=== PATIENT | female | born 2000 | race Caucasian/White ===

== ENCOUNTER 2022-03-10 12:39 | Emergency (ER) | payer SELFPAY ==
--- OUTSIDE RECORDS SUMMARY | 2022-03-10 12:42 | XMS REPORT | Continuity of Care Document ---
:2000 Author Organization [facility] [place] [facility] t Address [address] [place] [address] Care Team Providers Name Role Phone PCP, DOES NOT HAVE A Primary Care Physician Unavailable Doctor Unassigned, Name Attending Clinician Unavailable Rock ESCOBEDO Attending Clinician Unavailable Rock Juarez Attending Clinician Sejal RODRÍGUEZ Attending Clinician Unavailable Sejal oRdríguez DO Attending Clinician PROVIDER, LARS Attending Clinician Unavailable Rock ESCOBEDO Admitting Clinician Unavailable Payers Payer Name Policy Type Policy Number Effective Date Expiration Date S ource Problems Condition Condition Condition Status Onset Resolution Last Treating Co mments Source Name Details Category Date Date Treatment Clinician Date Problem No known ASSERTION [facility] problems [facility] Joseph ([place]) Allergies, Adverse Reactions, Alerts Allergy Allergy Status Severity Reaction(s) Onset Inactive Treating Comm ents Source Name Type Date Date Clinician PENICILL Drug Active Unknown-Cmnt 2020-09 Un rafael INS Class 2-16 ity of 00:00: [place] 00 [facility] Penicill Propensi Active Unknown - 2020-09 Childhood Univers ins ty to See comments 16 allergy-t i ty of adverse 00:00: old not [place] reaction 00 to take Medical s by Branch parents NO KNOWN Drug Active Univers ALLERGIE Class ity of S [facility] Social History Social Habit Start Date Stop Date Quantity Comments Source Exposure to Not sure [facility] SARS-CoV-2 (event) Medica l Branch Sex Assigned At [birth year] [facility] 00:00:00 00:00:00 [facility] Smoking Status Start Date Stop Date Source Unknown if ever smoked [facility] Medications Ordered Filled Start Stop Current Ordering Indication Dosage Frequency Signature Comments Components Source Medication Medication Date Date Medication? Clinician (SIG) Name Name activated No 25g 25 g, Univer s charcoal-so 10-04 Oral, ity of rbitoL 19:00: 18:43 ONCE, 1 Marilyn (ACTIDOSE/S 00 :00 dose, On Medi noe ORBITAL) 25 Tue Branch gram/120 mL 10/04/21 at suspension 1300, RADHA 25 g predniSONE 2020-09 No [id number] 50mg Take 5 Univers 10 mg 11-10 tablets by ity of tablet 00:00: 05:59 mouth [place] 00 :00 daily for Medical 4 days. Branch albuterol 2020-09 No 5mg 5 mg, Univer s (PROVENTIL) 11-09 Inhalation i ty of 2.5 mg /3 16:30: 15[place]33 [place] (0.083 00 :00 dose, On Medica l %) [facility] nebulizer 09/08/21 solution 5 at 1030, mg RADHA predniSONE 2020-09 No 50mg 50 mg, Univ ers (DELTASONE) 11-09 Oral, ity of tablet 50 16:30: 15:41 ONCE, 1 [place] mg 00 :00 dose, On Medical [place] 09/08/21 at 1030, RADHA ipratropium 2020-09 No .5mg 0.5 mg, Un rafael (ATROVENT) 11-09 Inhalation it y of 0.02 % 15:45: 14:47 , ONCE, 1 [place] nebulizer 00 :00 dose, On Medica l solution Am[place] Branch 0.5 mg 09/08/21 at 0945, RADHA albuterol 2020-09- No 5mg 5 mg, Univer s (PROVENTIL) 11-09 Inhalation i ty of 2.5 mg /3 15:45: 14:47 [place] (0.083 00 :00 dose, On Medica l %) [facility] nebulizer 09/08/21 solution 5 at 0945, mg RADHA ondansetron 2020-09- No 4mg 4 mg, Univ ers (ZOFRAN-ODT 2-16 12-16 Oral, ity of ) 15:30: 14:17 ONCE, 1 [place] disintegrat 00 :00 dose, On Medi noe ing tablet Amleia Branch 4 mg 09/08/21 at 0930, Routine ondansetron 2020-09 Yes [id number] 4mg Take 1 Univers (ZOFRAN 2-16 tablet by ity of ODT) 4 mg 00:00: mouth [place] disintegrat 00 every 8 Medic al ing tablet (eight) Branch hours as needed for Nausea and Vomiting (N/V). ondansetron 2020-09 Yes [id number] 4mg Take 1 Univers (ZOFRAN 2-16 tablet by ity of ODT) 4 mg 00:00: mouth [place] disintegrat 00 every 8 Medic al ing tablet (eight) Branch hours as needed for Nausea and Vomiting (N/V). ondansetron 2020-09 Yes [id number] 4mg Take 1 Univers (ZOFRAN 2-16 tablet by ity of ODT) 4 mg 00:00: mouth [place] disintegrat 00 every 8 Medic al ing tablet (eight) Branch hours as needed for Nausea and Vomiting (N/V). Vital Signs Vital Name Observation Time Observation Value Comments Source Systolic blood 2021-10-04 16:49:00 133 mm[Hg] Univer sity of [facility] Diastolic blood 2021-10-04 16:49:00 96 mm[Hg] Unive rsity [facility] Heart rate 2021-10-04 16:49:00 112 /min [facility] Respiratory rate 2021-10-04 16:49:00 22 /min [facility] Body height 2021-10-04 16:49:00 165.1 cm [facility] Body weight 2021-10-04 16:49:00 79.379 kg [facility] BMI 2021-10-04 16:49:00 29.12 kg/m2 [facility] Oxygen saturation in 2021-10-04 16:49:00 100 /min [facility] Arterial blood by [facility] Pulse oximetry Branch Systolic blood 2021-09-08 16:36:51 122 mm[Hg] Univer sity of pressure [facility] Diastolic blood 2021-09-08 16:36:51 60 mm[Hg] Unive rsity of pressure [facility] Heart rate 2021-09-08 16:36:51 94 /min [facility] Body temperature 2021-09-08 16:36:51 36.78 [facility] Respiratory rate 2021-09-08 16:36:51 18 /min [facility] Oxygen saturation in 2021-09-08 16:36:51 99 /min [facility] Arterial blood by [facility] Pulse oximetry Branch Body height 2021-09-08 13:52:00 172.7 cm [facility] Body weight 2021-09-08 13:52:00 88.451 kg [facility] BMI 2021-09-08 13:52:00 29.65 kg/m2 [facility] Height 2021-07-27 12:41:[address] [facility] [facility] Weight Measured 2021-07-27 12:41:17 [facility] Body Temperature 2021-07-27 12:41:[address] [facility] [facility] Heart Rate 2021-07-27 12:41:[address] [facility] ([place] [facility] Respiratory Rate 2021-07-27 12:41:[address] [facility] ([place] [facility] O2 % BldC Oximetry 2021-07-27 12:41:[address] [facility] [facility] BP Systolic 2021-07-27 12:41:[address] [facility] ([place] [facility] BP Diastolic 2021-07-27 12:41:[address] [facility] ([place] [facility] BMI (Body Mass 2021-07-27 12:41:[address] [facility] [place] [facility] Procedures Procedure Date / Time Performing Clinician Source Performed EXTERNAL PROVIDER 2021-10-19 06:01:00 Doctor Unassigned, No Univ [facility] RECORDS Name [facility] CT HEAD WO CONTRAST 2021-10-04 18:04:08 Nadine Escobedo [facility] XR CHEST 1 VW 2021-10-04 18:03:00 Nadine Escobedo [facility] URINE DRUG (IMMUNOASSAY) 2021-10-04 17:40:00 Nadine Escobedo [facility] COMPREHENSIVE DRUG Medical [facility] SCREEN CREATINE KINASE 2021-10-04 17:35:00 Nadine Escobedo [facility] LIPASE 2021-10-04 17:35:00 Nadine Escobedo [facility] TROPONIN I 2021-10-04 17:35:00 Nadine Escobedo [facility] COMP. METABOLIC PANEL 2021-10-04 17:35:00 Nadine Escobedo [facility] ([id number]) [facility] SALICYLATE 2021-10-04 17:35:00 Nadine Escobedo [facility] ETHANOL 2021-10-04 17:35:00 Nadine Escobedo [facility] CBC WITH DIFF 2021-10-04 17:35:00 Nadine Escobedo [facility] URINALYSIS 2021-10-04 17:35:00 Nadine Escobedo [facility] COVID-19 (ID NOW RAPID 2021-10-04 17:35:00 Nadine Escobedo [facility] TESTING) [facility] POCT TEST 2021-10-04 17:34:00 Nadine Escobedo [facility] NOTICE OF PRIVACY 2021-09-08 13:48:15 Doctor Unassmeg, No [facility] PRACTICES Name [facility] CONSENT/REFUSAL FOR 2021-09-08 13:48:03 [facility], [facility] Name [facility] Encounters Start End Encounter Admission Attending Care Care Encounter Source Date/Time Date/Time Type Type Clinicians Facility Department ID 2021-10-19 2021-10-19 Orders Doctor OLIVAREZ [id number] Univers 00:00:00 00:00:00 Only Unassigned, HAKEEM [id number] ity of [place] [facility] [id number] Abimael as [id number] [place] [id number] Branch 2021-10-04 2021-10-04 Emergency X JIMENEZ ESCOBEDO ERT [id number] Univers 10:52:00 13:41:00 NADINE [place] [facility] 2021-10-04 2021-10-04 [facility] [id number] Univers 10:52:00 13:41:00 Nadine MONTANO [id number] i ty [facility] [id number] [facility] [id number] [address] 2021-09-08 2021-09-08 Emergency [facility] [id number] Univers 07:53:00 10:38:00 KATHI [place] [facility] 2021-09-08 2021-09-08 Emergency [facility] [id number] Univers 07:53:00 10:38:00 Kathi MONTANO [id number] ity [facility] [id number] [facility] [id number] [address] 2019-10-14 2019-10-14 Departed 2.16.840. [place] J[id number] [facility] 13:42:00 16:23:00 Emergency [id number]. [facility] 11 [facility] - 3.4991.3. [facility] [address]. 1.2 [place] ([place]) Results Test Description Test Time Test Comments Results Result Comments Source TROPONIN I 2021-10-04 18:58:19 Test Item Value Reference Range Interpretation Comme nts TROPONIN I (test code = 0.004 ng/mL See_Comment [Au tomated message] The [id number]) system which ge nerated this result tra nsmitted reference range : <=0.034. The reference r barbara was not used to int erpret this result as normal/abnormal . HEMANT (test code = HEMANT) Reference (Normal) Range (defined by the 99th percentile reference limit): <= 0.034 ng/mL Note: Cardiac troponin begins to rise 3-4 hours after the onset of ischemia. Repeat in 4-6 hours if the sample was drawn within 3-4 hours of the onset of the symptom and found normal. Diagnosis of myocardial injury is made with acute changes in cTn concentrations with at least one serial sample above the 99th percentile upper reference limit (URL), taken together with the patient's clinical presentation. Biotin has been reported to cause a negative bias, interpret results relative to patient's use of biotin. Lab Interpretation Normal (test code = 46696-4) [facility]52[facility]56 Test Item Value Reference Range Interpretation Comments ALCOHOL (test code = <10 mg/dL 3425509245) HEMANT (test code = HEMANT) <10 Heveigjl13-794 Toxic>100 Depression of SIMULATION ANALYST>400 Fatalities Reported [facility]11 18:51:50 Test Item Value Reference Range Interpretation Comments SALICYLATE (test code <10 mg/L = 4912869538) HEMANT (test code = HEMANT) Therapeutic Range: ? Analgesic and Antipyretic Use ? 20-100 mg/L ? ? Anti-Inflammatory Use ? 100-250 mg/L Toxic Range: ? Greater than 300 mg/L [facility]2022-[facility]-11 18:51:35 Test Item Value Reference Range Interpretation Comments ACETAMINOP (test code = <10.0 10.0-30.0 L 2349249953) HEMANT (test code = HEMANT) Toxic: Greater than 200 ug/mL @ 4 hour post ingestion or greater than 50 ug/mL @ 12 hour post ingestion Lab Interpretation (test Abnormal code = 07556-9) [facility] METABOLIC PANEL (54834)2021-10-04 18:43:08 Test Item Value Reference Range Interpretation Comments NA (test code = 138 mmol/L 135-145 4383596552) K (test code = 4.5 mmol/L 3.5-5.0 2495635527) CL (test code = 106 mmol/L 98-108 4678111771) CO2 TOTAL (test code 25 mmol/L 23-31 = 4845625851) AGAP (test code = 2-16 8929464538) BUN (test code = 14 mg/dL 7-23 4086866725) GLUCOSE (test code = 110 mg/dL 70-110 6223683120) CREATININE (test code 0.81 mg/dL 0.50-1.04 = 6781333924) TOTAL BILI (test code 0.7 mg/dL 0.1-1.1 = 9562218406) CALCIUM (test code = 9.4 mg/dL 8.6-10.6 0969001061) T PROTEIN (test code 8.0 g/dL 6.3-8.2 = 1075055457) ALBUMIN (test code = 4.9 g/dL 3.5-5.0 9390360105) ALK PHOS (test code = 55 U/L 34-122 7068561696) ALTv (test code = 19 U/L 5-35 1742-6) AST(SGOT) (test code 32 U/L 13-40 = 6846545948) eGFR (test code = mL/min/1.73m2 5660785079) HEMANT (test code = HEMANT) Association of Glomerular Filtration Rate (GFR) and Staging of Kidney Disease* + + +- +| GFR (mL/min/1.73 m2) ?| With Kidney Damage ?| ?Without Kidney Damage+ ------+ ----+ ------+| ?>90 ?| ?Stage one ?| ? Normal ?+ -+ + -+| ?60-89 ?| ?Stage two ?| ? Decreased GFR ? + + +- +| ?30-59 ?| ?Stage three ?| ? Stage three ? + + +- +| ?15-29 ?| ?Stage four ? | ? Stage four ?+ -+ + -+| ?<15 (or dialysis) ? ?| ?Stage five ? | ? Stage five ?+ -+ + -+ *Each stage assumes the associated GFR level has been in effect for at least three months. ?Stages 1 to 5, with or without kidney disease, indicate chronic kidney disease. Notes: Determination of stages one and two (with eGFR >59mL/min/1.73 m2) requires estimation of kidney damage for at least three months as defined by structural or functional abnormalities of the kidney, manifested by either:Pathological abnormalities or Markers of kidney damage (including abnormalities in the composition of the blood or urine or abnormalities in imaging tests). [facility] 18:42:48 Test Item Value Reference Range Interpretation Comments LIPASE (test code = 4010477884) 79 U/L 0-220 Lab Interpretation (test code = Normal 19946-7) [facility] [id number] 18:42:28 Test Item Value Reference Range Interpretation Comments CK (test code = 4392968276) 60 U/L 33-194 Lab Interpretation (test code = Normal 69752-4) [facility] WITH [id number] 18:29:45 Test Item Value Reference Range Interpretation Comments WBC (test code = See_Comment [Automated 8090-2) message] The sy stem which generated this result transmitted reference range : 4.30 - 11.10 10*3/?L. The reference range was not used to interpret this result as normal/abnormal . RBC (test code = See_Comment [Automated 589-8) message] The sy stem which generated this result transmitted reference range : 3.93 - 5.25 10*6/?L. The reference range was not used to interpret this result as normal/abnormal . HGB (test code = 14.2 g/dL 11.6-15.0 718-7) HCT (test code = 42.4 % 35.7-45.2 4544-3) MCV (test code = 85.7 fL 80.6-95.5 787-2) MCH (test code = 28.7 pg 25.9-32.8 785-6) MCHC (test code = 33.5 g/dL 31.6-35.1 786-4) RDW-SD (test code = 39.6 fL 39.0-49.9 74950-2) RDW-CV (test code = 12.8 % 12.0-15.5 788-0) PLT (test code = See_Comment [Automated 777-3) message] The sy stem which generated this result transmitted reference range : 166 - 358 10*3/ ?L. The reference r barbara was not used to interpret this result as normal/abnormal . MPV (test code = 13.7 fL 9.5-12.9 H 82666-6) IPF % (test code = 13.2 % 1.3-7.7 H Platelet count 6643560794) measured by fluorescence method. NRBC/100 WBC (test See_Comment [Automat ed code = 1657957299) message] The system which generated this result transmitted reference range : 0.0 - 10.0 /100 WBCs. The refer ence range was not u sed to interpret th is result as normal/abnormal . NRBC x10^3 (test code <0.01 See_Comment [Auto mated = 9931392597) message] The s ystem which generated this result transmitted reference range : 10*3/?L. The reference range was not used to interpret this result as normal/abnormal . GRAN MAT (NEUT) % 79.5 % (test code = 770-8) IMM GRAN % (test code 0.40 % = 4584885119) LYMPH % (test code = 14.6 % 736-9) MONO % (test code = 4.8 % 5905-5) EOS % (test code = 0.4 % 713-8) BASO % (test code = 0.3 % 706-2) GRAN MAT x10^3(ANC) 7.17 10*3/uL 1.88-7.09 H (test code = 4919123772) IMM GRAN x10^3 (test 0.04 10*3/uL 0.00-0.06 code = 4973967736) LYMPH x10^3 (test code 1.32 10*3/uL 1.32-3.29 = 731-0) MONO x10^3 (test code 0.43 10*3/uL 0.33-0.92 = 742-7) EOS x10^3 (test code = 0.04 10*3/uL 0.03-0.39 711-2) BASO x10^3 (test code 0.03 10*3/uL 0.01-0.07 = 704-7) Lab Interpretation Abnormal (test code = 89573-2) [facility] [id number] 17:34:00 Test Item Value Reference Range Interpretation Comments POCT PREG (test code = 1605) Negative On board controls acceptable with Present C Line (test code = 3574) POCT PREG LOT # (test code = HCG [id number]) POCT PREG TEST DATE (test 11/21/2022 code = 3576) Lab Interpretation (test code = Normal 33895-3) [facility] [id number] 12:04:00 Test Item Value Reference Range Interpretation Comments Urinalysis (test Negative Negative Method of s ensitivity- code = BHCGUT) INDETERMINANT : results should be repea sandeep after 48-72 hrs POS ITIVE: results may be detected as early as 1 day after the first missed period A dilute urine specimen may no t contain representativel evels of hCG.If pregnanc y is still suspected, a fi rst morning urinespecimen O R a random blood specimen should be obtainedfrom e patient 48-72 hours lat er and re-tested. Urinalysis (test 1.025 1.002-1.036 N code = PREGUSG) [id number] 12:03:00 Test Item Value Reference Range Interpretation Comments Urinalysis (test code = UACLR) Light-Yellow Yellow Urinalysis (test code = UACLY) Clear Clear Urinalysis (test code = SPGR) 1.025 1.002-1.036 N Urinalysis (test code = ALETA) 6.5 5.0-9.0 N Urinalysis (test code = UALEU) 25 James/uL Negative Urinalysis (test code = UANIT) Negative Negative Urinalysis (test code = Negative mg/dL Neg-Trace PROUADIP) Urinalysis (test code = GLUCU) Normal mg/dL Negative Urinalysis (test code = KETU) Negative mg/dL Negative Urinalysis (test code = Normal mg/dL Less than 2 UAUROB) Urinalysis (test code = UABIL) Negative Negative Urinalysis (test code = UABLD) Negative Negative Urinalysis (test code = UARBC) 0-3 HPF 0-3 Urinalysis (test code = UAWBC) 0-3 HPF 0-3 Urinalysis (test code = 0-3 HPF 0-3 UASQUAM) Urinalysis (test code = UABAC) None Seen HPF None Seen Urine Source: Urine Clean Catch"
[2022-03-10 13:28] LABS: Urine Blood Negative (Negative); Urine Glucose Negative (Negative); Urine Protein Negative (Negative); Urine Specific Gravity 1.025 (1.005-1.030)
[2022-03-10 14:15] LABS: Absolute Lymphocytes (CBC) 2.8 K/uL (0.7-4.9); Albumin 4.2 g/dL (3.4-5.0); Bilirubin Total 0.2 mg/dL (0.2-1.0); Lymphocytes % 27.1 % (15.3-44.8); MPV 10.4 fL (7.6-11.3); Potassium 4.1 mmol/L (3.5-5.1); Protein, Total 8.2 g/dL (6.4-8.2); RBC Red Blood Cell Count 4.94 M/uL (3.86-4.86)
[2022-03-10] MEDS ORDERED: ONDANSETRON 4 MG/2 ML VIAL ONE (14:17)
[2022-03-10] MEDS ORDERED: NA CHLORIDE 0.9% 1,000 ML ONE (14:17)
[2022-03-10 14:31] LABS: Urine Specific Gravity/Preg 1.025 (1.005-1.030)
[2022-03-10] MEDS ORDERED: MORPHINE 4 MG/ML SYR ONE (14:33)
--- NOTE | 2022-03-10 15:06 | RAD REPORT ---
EXAM DESCRIPTION: CTAbdomen Pelvis W Contrast - 03/10/2022 2:38 pm CLINICAL HISTORY: Right lower abdominal pain COMPARISON: No comparisons TECHNIQUE: CT of the abdomen and pelvis was performed with contrast. All CT scans are performed using dose optimization technique as appropriate and may include automated exposure control or mA/KV adjustment according to patient size. FINDINGS: Lower chest: No acute abnormality. Mild circumferential thickened distal esophagus. This c ould reflect esophagitis. Liver: No acute abnormality or suspicious lesions. Biliary: No biliary ductal dilatation. Stomach: No significant focal abnormality. Duodenum: No significant focal abnormality. Pancreas: No significant abnormality. Spleen: No significant abnormality. Adrenal: No suspicious lesions. Kidney/ureter: No hydronephrosis. No renal calculi. Retroperitoneum: No retroperitoneal adenopathy. Vascular: No aneurysm. Bowel: Nonspecific fluid within the distal small bowel. No bowel obstruction. Normal appendix. Peritoneum: No ascites or free air. Bladder: Grossly unremarkable. Reproductive: No adnexal masses. Bones: No acute fracture. Other: n/a IMPRESSION: No acute intra-abdominal or pelvic finding. Normal appendix.
--- NOTE | 2022-03-10 17:05 | RAD REPORT ---
EXAM DESCRIPTION: US - Pelvis Complete - 03/10/2022 4:52 pm CLINICAL HISTORY: pelvic pain Pelvic pain. COMPARISON: Abdomen Pelvis W Contrast dated 03/10/2022 FINDINGS: The uterus is normal in size, shape and echotexture. 7.8 cm. The endometrial stripe measures 5 mm, normal The left ovary is unremarkable measuring 2.4 x 1.9 x 1.8 cm with volume of 4.2 cc. Vascular flow is p resent. The right ovary was not visualized. No free fluid. IMPRESSION: Right ovary not visualized, otherwise unremarkable pelvic ultrasound.
--- NOTE | 2022-03-10 18:12 | ER ---
Nurse's Notes [facility] Name: Kimber Layton Age: 21 yrs Sex: Female : 2000 Arrival Date: 03/10/2022 Time: 12:42 Bed 20 Private MD: Diagnosis: Groin Pain Presentation: 03/10 13:17 Chief complaint: Patient states: RLQ pain that began last night, pt states "It started aa5 in my belly button but then it traveled down to my right". Described pain as cramping and sharp. Pt reports nausea. Denies vomiting. Onset of symptoms was February 2022. 13:17 Acuity: REYNA 3 aa5 13:17 Method Of Arrival: Ambulatory aa5 13:17 Coronavirus screen: nausea. Ebola Screen: No symptoms or risks identified at this time. aa5 Initial Sepsis Screen: Does the patient meet any 2 criteria? No. Patient's initial sepsis screen is negative. Does the patient have a suspected source of infection? No. Patient's initial sepsis screen is negative. Risk Assessment: Do you want to hurt yourself or someone else? Patient reports no desire to harm self or others. Triage Assessment: 18:35 General: Appears in no apparent distress. Behavior is calm. iw Historical: - Allergies: 13:18 Amoxicillin; aa5 13:18 Motrin; aa5 13:18 PENICILLINS; aa5 - PMHx: 13:18 Asthma; GERD; aa5 - PSHx: 13:18 left knee; aa5 - Immunization history:: Adult Immunizations up to date. - Social history:: Smoking status: Patient denies any tobacco usage or history of. Screenin:35 Abuse screen: Denies threats or abuse. Denies injuries from another. Nutritional iw screening: No deficits noted. Tuberculosis screening: No symptoms or risk factors identified. Fall Risk IV access (20 points). Assessment: 18:34 Reassessment: Patient appears in no apparent distress at this time. Patient and/or iw family updated on plan of care and expected duration. Pain level reassessed. Patient is alert, oriented x 3, equal unlabored respirations, skin warm/dry/pink. Vital Signs: 13:17 BP 127 / 78; Pulse 82; Resp 16 S; Temp 97.6(TE); Pulse Ox 100% on R/A; Weight 86.18 kg aa5 (R); Height 5 ft. 8 in. (172.72 cm) (R); 13:17 Body Mass Index 28.89 (86.18 kg, 172.72 cm) [facility] ED Course: 12:42 Patient arrived in ED. as 12:59 Sandip Snider PA is PHCP. [facility] 12:59 Bari Gusman MD is Attending Physician. [facility] 13:17 Arm band placed on. aa 13:18 Triage completed. aa 13:27 Inserted saline lock: 20 gauge in left antecubital area, using aseptic technique. Blood mb7 collected. 14:04 Justina Merritt, RN is Primary Nurse. cm 14:42 CT Abd/Pelvis - IV Contrast Only In Process Unspecified. EDMS 16:54 US Pelvis Complete In Process Unspecified. EDMS 18:35 No provider procedures requiring assistance completed. IV discontinued, intact, iw bleeding controlled, No redness/swelling at site. Pressure dressing applied. Administered Medications: 14:16 Drug: NS 0.9% 1000 ml Route: IV; Rate: 1 bolus; Site: left antecubital; cm 14:17 Drug: Zofran (Ondansetron) 4 mg Route: IVP; Site: left antecubital; cm 14:17 Follow up: Response: No adverse reaction cm 14:27 Drug: morphine 4 mg Route: IVP; Infused Over: 4 mins; Site: left antecubital; cm 18:24 Not Given (Patient Refused): Promethazine 12.5 mg IVP once iw Medication: 18:35 VIS not applicable for this client. iw Outcome: 18:11 Discharge ordered by . [facility] 18:35 Discharged to home ambulatory, with family. iw 18:35 Condition: good 18:35 Discharge instructions given to patient, Instructed on discharge instructions, follow up and referral plans. medication usage, Demonstrated understanding of instructions, follow-up care, medications, Prescriptions given X 3. 18:35 Patient left the ED. iw Signatures: Dispatcher [employer] EDMS Sandip Snider PA PA jmm Martinez, Amelia as Williams, Irene, RN RN Rosalia Mora RN RN [facility] Lucia Villalobos mb7 Justina Merritt, AURY RN cm
--- NOTE | 2022-03-10 18:12 | EDPHYS ---
Physician Documentation [facility] Name: Kimber Layton Age: 21 yrs Sex: Female : 2000 Arrival Date: 03/10/2022 Time: 12:42 Bed 20 Private MD: ED Physician Bari Gusman HPI: 03/10 13:29 This 21 yrs old Female presents to ER via Ambulatory with complaints of Abdominal Pain. jmm 13:29 The patient presents with abdominal pain. Onset: The symptoms/episode began/occurred jmm gradually, 1 day(s) ago. The symptoms radiate to right leg. This is a 21 year old female with a history of asthma, gerd that presents to the ED with complaints of right groin pain which radiates down her right leg. Denies back pain, vomiting, diarrhea, fever. Pain initially began periumbilical. . Historical: - Allergies: 13:18 Amoxicillin; aa5 13:18 Motrin; aa5 13:18 PENICILLINS; aa5 - PMHx: 13:18 Asthma; GERD; aa5 - PSHx: 13:18 left knee; aa5 - Immunization history:: Adult Immunizations up to date. - Social history:: Smoking status: Patient denies any tobacco usage or history of. ROS: 13:29 Constitutional: Negative for fever, chills, and weight loss, Cardiovascular: Negative jmm for chest pain, palpitations, and edema, Respiratory: Negative for shortness of breath, cough, wheezing, and pleuritic chest pain. 13:29 Abdomen/GI: Positive for abdominal pain. 13:29 MS/extremity: Positive for pain. 13:29 All other systems are negative. Exam: 13:29 Constitutional: This is a well developed, well nourished patient who is awake, alert, jmm and in no acute distress. Head/Face: atraumatic. Eyes: EOMI, no conjunctival erythema appreciated ENT: Moist Mucus Membranes Neck: Trachea midline, Supple Chest/axilla: Normal chest wall appearance and motion. Cardiovascular: Regular rate and rhythm. No edema appreciated Respiratory: Normal respirations, no respiratory distress appreciated 13:29 Skin: General appearance color normal MS/ Extremity: Moves all extremities, no obvious deformities appreciated, no edema noted to the lower extremities Neuro: Awake and alert Psych: Behavior is normal, Mood is normal, Patient is cooperative and pleasant 13:29 Abdomen/GI: Inspection: abdomen appears normal, Palpation: moderate abdominal tenderness, in the suprapubic area and right lower quadrant. 13:29 Musculoskeletal/extremity: right groin pain on rom of the right hip. Vital Signs: 13:17 BP 127 / 78; Pulse 82; Resp 16 S; Temp 97.6(TE); Pulse Ox 100% on R/A; Weight 86.18 kg aa5 (R); Height 5 ft. 8 in. (172.72 cm) (R); 13:17 Body Mass Index 28.89 (86.18 kg, 172.72 cm) aa5 MDM: 13:42 Patient medically screened. [facility] 18:11 Data reviewed: vital signs, nurses notes. Counseling: I had a detailed discussion with keshia the patient and/or guardian regarding: the historical points, exam findings, and any diagnostic results supporting the discharge/admit diagnosis, lab results, radiology results, the need for outpatient follow up, to return to the emergency department if symptoms worsen or persist or if there are any questions or concerns that arise at home. 03/10 13:28 Order name: Urine Dipstick-Ancillary; Complete Time: 13:39 [facility] 03/10 13:29 Order name: Urine --Ancillary (enter results); Complete Time: 14:31 03/10 13:40 Order name: CBC with Diff; Complete Time: 14:31 [facility] 03/10 13:40 Order name: CMP; Complete Time: 14:19 [facility] 03/10 13:40 Order name: Lipase; Complete Time: 14:19 [facility] 03/10 13:40 Order name: CT Abd/Pelvis - IV Contrast Only; Complete Time: 16:08 [facility] 03/10 13:40 Order name: IV Saline Lock; Complete Time: 14:17 [facility] 03/10 13:40 Order name: Labs collected and sent; Complete Time: 14:17 [facility] 03/10 16:21 Order name: US Pelvis Complete; Complete Time: 17:14 [facility] Administered Medications: 14:16 Drug: NS 0.9% 1000 ml Route: IV; Rate: 1 bolus; Site: left antecubital; cm 14:17 Drug: Zofran (Ondansetron) 4 mg Route: IVP; Site: left antecubital; cm 14:17 Follow up: Response: No adverse reaction cm 14:27 Drug: morphine 4 mg Route: IVP; Infused Over: 4 mins; Site: left antecubital; cm 18:24 Not Given (Patient Refused): Promethazine 12.5 mg IVP once iw Disposition: 03/11 08:10 Co-signature as Attending Physician, Bari Gusman MD I agree with the assessment ma2 and plan of care. Disposition Summary: 03/10/22 18:11 Discharge Ordered Location: Home [facility] Condition: Stable [facility] Diagnosis - Groin Pain [facility] Followup: [facility] - With: Private Physician - When: 2 - 3 days - Reason: Recheck today's complaints, Continuance of care, Re-evaluation by your physician Discharge Instructions: - Discharge Summary Sheet [facility] - Adductor Muscle Strain Rehab-SportsMed [facility] Forms: - Medication Reconciliation Form [facility] - Thank You Letter [facility] - Antibiotic Education [facility] - Prescription Opioid Use [facility] Prescriptions: - Diclofenac Sodium 75 mg Oral Tablet Sustained Release - take 1 tablet by ORAL route 2 times per day; 30 tablet; Refills: 0, Product [facility] Selection Permitted - orphenadrine citrate 100 mg Oral Tablet Sustained Release - take 1 tablet by ORAL route 2 times per day As needed; 20 tablet; Refills: 0, [facility] Product Selection Permitted - ondansetron 4 mg Oral tablet,disintegrating - take 1 tablet by ORAL route every 4-6 hours; 20 tablet; Refills: 0, Product [facility] Selection Permitted Signatures: Dispatcher [employer] EDSandip Martinez PA PA jmm Calderon, Audri, RN RN aa5 Bari Gusman MD MD ma2 Justina Merritt RN RN cm Radha Castaneda RN iw
[2022-03-10] MEDS ORDERED: PROMETHAZINE INJ 25 MG/ML AMP ONE (18:16)
[2022-03-10 18:41] VITALS: BP 127/78; TEMP 97.6; O2SAT 100
== END 2022-03-10 18:35 | disposition home or self-care (01) ==
LOC: ER 12:39
DX: R10.30 Lower abdominal pain, unspecified (principal); Z88.0 Allergy status to penicillin; Z88.1 Allergy status to other antibiotic agents; Z88.6 Allergy status to analgesic agent
CPT/HCPCS: 36415; 74177; 76856; 80053; 81003; 81025; 83690; 85025; 96374; 96375; 99284; J2405; J2550; J7030; Q9967

== ENCOUNTER 2023-05-29 16:04 | Emergency (ER) | payer SELFPAY ==
--- OUTSIDE RECORDS SUMMARY | 2023-05-29 16:07 | XMS REPORT | Continuity of Care Document ---
:2000 Author Organization [facility] t Address [address] [place] [address] [address] [place] [address] Care Team Providers Name Role Phone PCP, PATIENT DOES NOT HAVE A Primary Care Physician Unavaila ALFREDO Brink Attending Clinician Unavailable Alfredo Godinez Attending Clinician Doctor Unassigned, [place] Attending Clinician Unavailable NADINE ESCOBEDO Attending Clinician Unavailable Nadine Juarez Attending Clinician KATHI RODRÍGUEZ Attending Clinician Unavailable Kathi Rodríguez DO Attending Clinician PROVIDER, ED TEMP Attending Clinician Unavailable ALFREDO COHEN Admitting Clinician Unavailable NADINE ESCOBEDO Admitting Clinician Unavailable Payers Payer Name Policy Type Policy Number Effective Date Expiration Date S ource Problems Condition Condition Condition Status Onset Resolution Last Treating Co mments Source Name Details Category Date Date Treatment Clinician Date No known No known Disease Unive rs active active ity of problems problems [facility] Allergies, Adverse Reactions, Alerts Allergy Allergy Status Severity Reaction(s) Onset Inactive Treating Comm ents Source Name Type Date Date Clinician PENICILL Drug Active Unknown-Cmnt 2020-09 Un rafael INS Class 2-16 ity of 00:00: [place] 00 [facility] Branch Penicill Propensi Active Unknown - 2020-09 Childhood Univers ins ty to See comments 2-16 allergy-t i ty of adverse 00:00: old not [place] reaction 00 to take Medical s by [place] parents Penicill Propensi Active Unknown - 2020-09 Childhood Univers ins ty to See comments 2-16 allergy-t i ty of adverse 00:00: old not [place] reaction 00 to take Medical s by [place] parents NO KNOWN Drug Active Univers ALLERGIE Class ity of S [facility] Social History Social Habit Start Date Stop Date Quantity Comments Source Exposure to 2022-09-08 2022-09-18 Not sure [facility] SARS-CoV-2 (event) 00:00:00 21:03:00 Medica l Branch Sex Assigned At [birth year] [facility] y [facility] 00:00:00 00:00:00 Medical Branch Smoking Status Start Date Stop Date Source Tobacco smoking consumption [facility] unknown Branch Medications Ordered Filled Start Stop Current Ordering Indication Dosage Frequency Signature Comments Components Source Medication Medication Date Date Medication? Clinician (SIG) Name Name doxycycline 2021-09 No 100mg 100 mg, U nivers hyclate 11-20 Oral, ity of (Vibramycin 05:45: 05[place]49 [place] capsule 00 :00 dose, On Medica l 100 mg [facility] 09/18/22 at 2345, RADHA
Re ason for Anti-Infec tive: Documented Infection< br>Documen sandeep Infection Site: HEENT
D uration of Therapy: 7 days benzonatate 2021-09 No 200mg 200 mg, U nivers (TESSALON 11-20 Oral, ity of PERLES) 05:30: 04:47 ONCE, 1 [place] capsule 200 00 :00 dose, On Medi noe mg [facility] 09/18/22 at 2330, RADHA predniSONE 2021-09 No 40mg 40 mg, Univ ers (DELTASONE) 11-20 Oral, ity of tablet 40 04:45: 04:46 [place]CE[place] mg 00 :00 dose, On Medical [facility] 09/18/22 at 2245, RADHA ondansetron 2021-09- No 4mg 4 mg, Slow Univers (ZOFRAN 11-20 IV Push, ity of (PF)) 04:00: 03:25 ONCE, 1 [place] injection 4 00 :00 dose, On Medi noe mg [facility] 09/18/22 at 2200, RADHA NaCl 0.9% 2021-09 No 1000mL at 999 Uni vers (NS) bolus 2-27 12-27 mL/hr, ity of infusion 04:00: 05:31 1,000 mL, Abimael as 1,000 mL 00 :00 IV Medical Infusion, Branch ONCE, 1 dose, On 09/18/22 at 2200, RADHA benzonatate 2021-09 Yes [id number] 200mg Take 1 Univers 200 mg 11-19 capsule by ity of capsule 00:00: mouth 3 [place] 00 (three) Medical times [place] daily as needed for Cough. doxycycline 2021-09- No [id number] 100mg Take 1 Univers hyclate 100 11-19 capsule by i ty of mg capsule 00:00: 05:59 [place] the Medical morning Branch and 1 capsule in the evening. Do all this for 7 days. predniSONE 2021-09 No [id number] 40mg Take 2 Univers 20 mg 11-19 tablets by ity of tablet 00:00: 05:59 mouth in [place] 00 :00 the Medical morning Branch for 5 days. activated No 25g 25 g, Univer s charcoal-so 10-04 Oral, ity of rbitoL 19:00: 18:43 ONCE, 1 [place] (ACTIDOSE/S 00 :00 dose, On Medi noe ORBITAL) 25 e Branch gram/120 mL 10/04/21 at suspension 1300, RADHA 25 g predniSONE 2020-09- No [id number] 50mg Take 5 Univers 10 mg 11-10 tablets by ity of tablet 00:00: 05:59 mouth [place] 00 :00 daily for Medical 4 days. Branch albuterol 2020-09 No 5mg 5 mg, Univer s (PROVENTIL) 11-09 Inhalation i ty of 2.5 mg /3 16:30: 15:33 , [place] mL (0.083 00 :00 dose, On Medica l %) [facility] nebulizer 09/08/21 solution 5 at 1030, mg RADHA predniSONE 2020-09 No 50mg 50 mg, Univ ers (DELTASONE) 11-09 Oral, ity of tablet 50 16:30: 15:41 ONCE, [place] mg 00 :00 dose, On Medical [facility] 09/08/21 at 1030, RADHA ipratropium 2020-09 No .5mg 0.5 mg, Un rafael (ATROVENT) 11-09 Inhalation it y of 0.02 % 15:45: 14:47 , ONCE, 1 [place] nebulizer 00 :00 dose, On Medica l solution [place] Branch 0.5 mg 09/08/21 at 0945, RADHA albuterol 2020-09 No 5mg 5 mg, Univer s (PROVENTIL) 11-09 Inhalation i ty of 2.5 mg /3 15:45: 14:47 , [place] 1 [place] mL (0.083 00 :00 dose, On Medica l %) [place] [facility] nebulizer 09/08/21 solution 5 at 0945, mg RADHA ondansetron 2020-09 No 4mg 4 mg, Univ ers (ZOFRAN-ODT 11-09 Oral, ity of ) 15:30: 14:17 ONCE, 1 [place] disintegrat 00 :00 dose, On Medi noe ing tablet [place] Branch 4 mg 09/08/21 at 0930, Routine ondansetron 2020-09 Yes [id number] 4mg Take 1 Univers (ZOFRAN 2-16 tablet by ity of ODT) 4 mg 00:00: mouth [place] disintegrat 00 every 8 Medic al ing tablet (eight) Branch hours as needed for Nausea and Vomiting (N/V). ondansetron 2020-09 Yes [id number] 4mg Take 1 Univers (ZOFRAN 2-16 tablet by ity of ODT) 4 mg 00:00: mouth [place] disintegrat 00 every 8 Medic al ing tablet (eight) Branch hours as needed for Nausea and Vomiting (N/V). ondansetron 2020-09 Yes [id number] 4mg Take 1 Univers (ZOFRAN 2-16 tablet by ity of ODT) 4 mg 00:00: mouth [place] disintegrat 00 every 8 Medic al ing tablet (eight) Branch hours as needed for Nausea and Vomiting (N/V). ondansetron 2020-09 Yes [id number] 4mg Take 1 Univers (ZOFRAN 2-16 tablet by ity of ODT) 4 mg 00:00: mouth [place] disintegrat 00 every 8 Medic al ing tablet (eight) Branch hours as needed for Nausea and Vomiting (N/V). Vital Signs Vital Name Observation Time Observation Value Comments Source Systolic blood 2022-09-19 04:00:00 115 mm[Hg] Univer sity of pressure [place] [facility] Diastolic blood 2022-09-19 04:00:00 60 mm[Hg] Unive rsity of [facility] Heart rate 2022-09-19 04:00:00 66 /min Universi ty of [facility] Respiratory rate 2022-09-19 04:00:00 18 /min Univ ersity of [facility] Oxygen saturation in 2022-09-19 04:00:00 97 /min University of Arterial blood by [place] [employer] no[facility] Pulse oximetry Branch Body temperature 2022-09-19 03:06:00 37.39 Tiara Univ ersity of [facility] Body height 2022-09-19 03:06:00 172.7 cm Universi ty of [facility] Body weight 2022-09-19 03:06:00 81.647 kg Universi ty of [facility] BMI 2022-09-19 03:06:00 27.37 kg/m2 Universi ty of [place] [facility] Body height 2021-10-04 16:49:00 165.1 cm Universi ty of [place] [facility] Body weight 2021-10-04 16:49:00 79.379 kg Universi ty of [place] [facility] BMI 2021-10-04 16:49:00 29.12 kg/m2 Universi ty of [facility] Branch Oxygen saturation in 2021-10-04 16:49:00 100 /min University of Arterial blood by [facility] noe Pulse oximetry Branch Systolic blood 2021-10-04 16:49:00 133 mm[Hg] Univer sity of pressure [facility] Branch Diastolic blood 2021-10-04 16:49:00 96 mm[Hg] Unive rsity of pressure [facility] Heart rate 2021-10-04 16:49:00 112 /min Universi ty of [facility] Respiratory rate 2021-10-04 16:49:00 22 /min Univ ersity of [facility] Branch Systolic blood 2021-09-08 16:36:51 122 mm[Hg] Univer sity of pressure [facility] Diastolic blood 2021-09-08 16:36:51 60 mm[Hg] Unive rsity of pressure [facility] Heart rate 2021-09-08 16:36:51 94 /min [facility] Body temperature 2021-09-08 16:36:51 36.78 Tiara [facility] Respiratory rate 2021-09-08 16:36:51 18 /min [facility] saturation in 2021-09-08 16:36:51 99 /min [facility] Arterial blood by [facility] Pulse oximetry Branch Body height 2021-09-08 13:52:00 172.7 cm [facility] Body weight 2021-09-08 13:52:00 88.451 kg [facility] BMI 2021-09-08 13:52:00 29.65 kg/m2 [facility] Height 2021-07-27 12:41:[address] [facility] [place] [facility] Weight Measured 2021-07-27 12:41:17 [facility] [place] [facility] Body Temperature 2021-07-27 12:41:[address] [facility] [place] [facility] Heart Rate 2021-07-27 12:41:[address] [facility] [place] [facility] Respiratory Rate 2021-07-27 12:41:[address] [facility] [place] [facility] O2 % BldC Oximetry 2021-07-27 12:41:[address] [facility] [place] [facility] BP Systolic 2021-07-27 12:41:[address] [facility] [place] [facility] BP Diastolic 2021-07-27 12:41:[address] [facility] [place] [facility] BMI (Body Mass 2021-07-27 12:41:[address] [facility] [place] ([place] [facility] Procedures Procedure Date / Time Performing Clinician Source Performed XR CHEST 1 VW 2022-09-19 03:47:07 Alfredo Cohen [facility] URINALYSIS 2022-09-19 03:33:00 Alfredo Cohen [facility] POCT TEST 2022-09-19 03:33:00 Alfredo Cohen [facility] TROPONIN I 2022-09-19 03:25:00 [facility] METABOLIC PANEL 2022-09-19 03:25:00 Alfredo Cohen [facility] ([id number]) Medical [place] CBC WITH DIFF 2022-09-19 03:25:00 Alfredo Cohen [facility] RAPID INFLUENZA A/B 2022-09-19 03:25:00 Alfredo Cohen [facility] N-TERMINAL PRO-BNP 2022-09-19 03:25:[address] [facility] (ID NOW RAPID 2022-09-19 03:25:00 [facility] Medical [place] EXTERNAL PROVIDER 2021-10-19 06:01:00 Doctor Unassigned, [facility] RECORDS Name Medical Branch CT HEAD WO CONTRAST 2021-10-04 18:04:08 Nadine Escobedo [facility] XR CHEST 1 VW 2021-10-04 18:03:00 Nadine Escobedo [facility] URINE DRUG (IMMUNOASSAY) 2021-10-04 17:40:[address] [facility] SCREEN CREATINE KINASE 2021-10-04 17:35:00 Nadine Escobedo [facility] LIPASE 2021-10-04 17:35:00 Nadine Escobedo [facility] TROPONIN I 2021-10-04 17:35:00 Nadine Escobedo [facility] COMP. METABOLIC PANEL 2021-10-04 17:35:00 Nadine Escobedo [facility] ([id number]) [facility] SALICYLATE 2021-10-04 17:35:00 Nadine Escobedo [facility] ETHANOL 2021-10-04 17:35:00 Nadine Escobedo [facility] CBC WITH DIFF 2021-10-04 17:35:00 Nadine Escobedo [facility] URINALYSIS 2021-10-04 17:35:00 Nadine Escobedo [facility] COVID-19 (ID NOW RAPID 2021-10-04 17:35:00 Nadine Escobedo [facility] TESTING) [facility] POCT TEST 2021-10-04 17:34:00 Nadine Escobedo Universi ty of [facility] NOTICE OF PRIVACY 2021-09-08 13:48:15 Doctor Unassigned, No [facility] PRACTICES Name [facility] Branch CONSENT/REFUSAL FOR 2021-09-08 13:48:03 Doctor Unassigned, No [facility] DIAGNOSIS AND TREATMENT Name [facility] Encounters Start End Encounter Admission Attending Care Care Encounter Source Date/Time Date/Time Type Type Clinicians Facility Department ID 2022-09-18 2022-09-18 Emergency X VICKI [facility] ERT [id number] Univers 21:01:00 23:53:00 ALFREDO grace [facility] 2022-09-18 2022-09-18 Emergency Vicki [facility] [id number] Univers 21:01:00 23:53:00 Alfredo MONTANO [id number] i ty of [place] 4.2.7.2.686 [facility] [id number] [address] 2021-10-19 2021-10-19 Orders Doctor OLIVAREZ [id number] Univers 00:00:00 00:00:00 Only Unassigned, HAKEEM 350.1.13.10 ity of [place] [facility] 4.2.7.2.686 Abimael [id number] [address] 2021-10-04 2021-10-04 Emergency X GREGG [facility] ERT [id number] Univers 10:52:00 13:41:00 NADINE grace [facility] 2021-10-04 2021-10-04 Emergency Gregg [facility] [id number] Univers 10:52:00 13:41:00 Nadine MONTANO 350.1.13.10 i ty of [place] 4.2.7.2.686 [facility] [id number] [address] 2021-09-08 2021-09-08 Emergency X ANNE [facility] ERT [id number] Univers 07:53:00 10:38:00 KATHI grace [facility] 2021-09-08 2021-09-08 Emergency Anne ARCHASITY [id number] Univers 07:53:00 10:38:00 Kathi MONTANO 350.1.13.10 itlamont [facility] 4.2.7.2.686 [facility] [id number] [address] 2019-10-14 2019-10-14 Departed 2.16.840. [place] [id number] [id number] [facility] 13:42:00 16:23:00 Emergency [id number]. [facility] 11 L es - 3.4991.3. [facility] [address] [address]. 1.2 [place] ([place]) Results Test Description Test Time Test Comments Results Result Comments Source TROPONIN I 2022-09-19 04:03:49 Test Item Value Reference Range Interpretation Comme nts TROPONIN I (test code = 0.003 ng/mL See_Comment [Au tomated message] The 7438838168) system which ge nerated this result tra [...] biotin. Lab Interpretation Normal (test code = 48814-4) [facility] [id number] 04:00:28 Test Item Value Reference Range Interpretation Comments NT-proBNP (test code 31 pg/mL See_Comment [Autom ated = 7394397916) message] The system which generated this result transmitted reference range : <=125. The reference range was not used to interpret this result as normal/abnormal . HEMANT (test code = HEMANT) Biotin has been reported to cause a negative bias, interpret results relative to patient's use of biotin. Lab Interpretation Normal (test code = 43996-1) [facility]. METABOLIC PANEL ([id number])2022-09-19 03:52:25 Test Item Value Reference Range Interpretation Comments NA (test code = 138 mmol/L 135-145 7420894144) K (test code = 4.0 mmol/L 3.5-5.0 6649160630) CL (test code = 105 mmol/L 98-108 2399349353) CO2 TOTAL (test code = 24 mmol/L 23-31 3727516822) AGAP (test code = 2-16 2120865239) BUN (test code = 18 mg/dL 7-23 7363200203) GLUCOSE (test code = 127 mg/dL 70-110 H 6665127344) CREATININE (test code = 0.81 mg/dL 0.50-1.04 8112146240) TOTAL BILI (test code = 0.3 mg/dL 0.1-1.4 3971334094) CALCIUM (test code = 8.8 mg/dL 8.6-10.6 9796598314) T PROTEIN (test code = 7.1 g/dL 6.3-8.2 8490236710) ALBUMIN (test code = 4.4 g/dL 3.5-5.0 7275209441) ALK PHOS (test code = 52 U/L 34-122 5260649204) ALTv (test code = 25 U/L 5-35 1742-6) AST(SGOT) (test code = 27 U/L 13-40 0384284371) eGFR (test code = mL/min/1.73m2 0941369307) HEMANT (test code = HEMANT) Association of Glomerular Filtration Rate (GFR) and Staging of Kidney Disease* + --+ --+ ------+| GFR (mL/min/1.73 m2) ?| With Kidney Damage ?| ?Without Kidney Damage+ --------+ --------+ +| ?>90 ?| ?Stage one ?| ? Normal ?+ ---+ ---+ -------+| ?60-89 ?| ?Stage two ?| ? Decreased GFR ? + --+ --+ ------+| ?30-59 ?| ?Stage three ?| ? Stage three ? + --+ --+ ------+| ?15-29 ?| ?Stage four ? | ? Stage four ?+ ---+ ---+ -------+| ?<15 (or dialysis) ? ?| ?Stage five ? | ? Stage five ?+ ---+ ---+ -------+ *Each stage assumes the associated GFR level [...] or urine or abnormalities in imaging tests). Lab Interpretation Abnormal (test code = 63557-2) [facility] WITH [id number] 03:38:46 Test Item Value Reference Range Interpretation Comments WBC (test code = See_Comment [Automated 7256-2) message] The sy stem which generated this result transmitted reference range : 4.30 - 11.10 10*3/?L. The reference range was not used to interpret this result as normal/abnormal . RBC (test code = See_Comment [Automated 892-8) message] The sy stem which generated this result transmitted reference range : 3.93 - 5.25 10*6/?L. The reference range was not used to interpret this result as normal/abnormal . HGB (test code = 12.8 g/dL 11.6-15.0 718-7) HCT (test code = 37.9 % 35.7-45.2 4544-3) MCV (test code = 85.4 fL 80.6-95.5 787-2) MCH (test code = 28.8 pg 25.9-32.8 785-6) MCHC (test code = 33.8 g/dL 31.6-35.1 786-4) RDW-SD (test code = 37.8 fL 39.0-49.9 L 44551-8) RDW-CV (test code = 12.3 % 12.0-15.5 788-0) PLT (test code = See_Comment L [Automated 777-3) message] The sy stem which generated this result transmitted reference range : 166 - 358 10*3/ ?L. The reference r barbara was not used to interpret this result as normal/abnormal . MPV (test code = 12.8 fL 9.5-12.9 30631-7) NRBC/100 WBC (test See_Comment [Automat ed code = 6068139273) message] The system which generated this result transmitted reference range : 0.0 - 10.0 /100 WBCs. The refer ence range was not u sed to interpret th is result as normal/abnormal . NRBC x10^3 (test code See_Comment [Auto mated = 3003466133) message] The s ystem which generated this result transmitted reference range : 10*3/?L. The reference range was not used to interpret this result as normal/abnormal . GRAN MAT (NEUT) % 69.0 % (test code = 770-8) IMM GRAN % (test code 0.30 % = 5343498073) LYMPH % (test code = 25.3 % 736-9) MONO % (test code = 4.6 % 5905-5) EOS % (test code = 0.6 % 713-8) BASO % (test code = 0.2 % 706-2) GRAN MAT x10^3(ANC) 7.47 10*3/uL 1.88-7.09 H (test code = 6614150150) IMM GRAN x10^3 (test 0.03 10*3/uL 0.00-0.06 code = 3444803043) LYMPH x10^3 (test code 2.74 10*3/uL 1.32-3.29 = 731-0) MONO x10^3 (test code 0.50 10*3/uL 0.33-0.92 = 742-7) EOS x10^3 (test code = 0.07 10*3/uL 0.03-0.39 711-2) BASO x10^3 (test code 0.01-0.07 = 704-7) Lab Interpretation Abnormal (test code = 93285-0) [facility] [id number] 03:33:00 Test Item Value Reference Range Interpretation Comments POCT PREG (test code = 1605) negative Lab Interpretation (test code = Normal 70437-7) [facility] [id number] 18:58:19 Test Item Value Reference Interpretation Comments Range TROPONIN I (test 0.004 ng/mL See_Comment [Automated code = 3711591334) message] The system which generated this result transmitted reference range : <=0.034. The reference range was not used to interpret this result as normal/abnormal . HEMANT (test code = Reference (Normal) HEMANT) Range (defined by the 99th percentile reference [...] biotin. Lab Interpretation Normal (test code = 38381-8) [facility]2022-[facility]-11 18:52:56 Test Item Value Reference Range Interpretation Comments ALCOHOL (test code = <10 mg/dL 3624047595) HEMANT (test code = HEMANT) <10 [id number] Toxic>100 Depression of LAYER UP>400 Fatalities Reported [facility]2022-01-11 18:51:50 Test Item Value Reference Range Interpretation Comments SALICYLATE (test code <10 mg/L = 0586931477) HEMANT (test code = HEMANT) Therapeutic Range: ? Analgesic and Antipyretic Use ? 20-100 mg/L ? ? Anti-Inflammatory Use ? 100-250 mg/L Toxic Range: ? Greater than 300 mg/L [facility]OPHEN2022-01-11 18:51:35 Test Item Value Reference Range Interpretation Comments ACETAMINOP (test code = <10.0 10.0-30.0 L 7020463905) HEMANT (test code = HEMANT) Toxic: Greater than 200 ug/mL @ 4 hour post ingestion or greater than 50 ug/mL @ 12 hour post ingestion Lab Interpretation (test Abnormal code = 75845-1) [facility]. METABOLIC PANEL (09560)2021-10-04 18:43:08 Test Item Value Reference Range Interpretation Comments NA (test code = 138 mmol/L 135-145 0601209827) K (test code = 4.5 mmol/L 3.5-5.0 1278443116) CL (test code = 106 mmol/L 98-108 8951976014) CO2 TOTAL (test code 25 mmol/L 23-31 = 3004793967) AGAP (test code = 2-16 3266162037) BUN (test code = 14 mg/dL 7-23 6936073677) GLUCOSE (test code = 110 mg/dL 70-110 9083540650) CREATININE (test code 0.81 mg/dL 0.50-1.04 = 7007398990) TOTAL BILI (test code 0.7 mg/dL 0.1-1.1 = 6813936657) CALCIUM (test code = 9.4 mg/dL 8.6-10.6 7785309035) T PROTEIN (test code 8.0 g/dL 6.3-8.2 = 1623896789) ALBUMIN (test code = 4.9 g/dL 3.5-5.0 4791942940) ALK PHOS (test code = 55 U/L 34-122 4560421483) ALTv (test code = 19 U/L 5-35 1742-6) AST(SGOT) (test code 32 U/L 13-40 = 1353575106) eGFR (test code = mL/min/1.73m2 8928463631) HEMANT (test code = HEMANT) Association of [...] or urine or abnormalities in imaging tests). [facility]2022-[facility] 18:42:48 Test Item Value Reference Range Interpretation Comments LIPASE (test code = 6343840497) 79 U/L 0-220 Lab Interpretation (test code = Normal 18712-9) [facility] [id number] 18:42:28 Test Item Value Reference Range Interpretation Comments CK (test code = 2980007345) 60 U/L 33-194 Lab Interpretation (test code = Normal 46031-1) [facility] WITH [id number] 18:29:45 Test Item Value Reference Range Interpretation Comments WBC (test code = See_Comment [Automated 9504-5) message] The sy stem which generated this result transmitted reference range : 4.30 - 11.10 10*3/?L. The reference range was not used to interpret this result as normal/abnormal . RBC (test code = See_Comment [Automated 314-6) message] The sy stem which generated this [...] RDW-SD (test code = 39.6 fL 39.0-49.9 15927-8) RDW-CV (test code = 12.8 % 12.0-15.5 788-0) PLT (test code = See_Comment [Automated 777-3) message] The sy stem which generated this result transmitted reference range : 166 - 358 10*3/ ?L. The reference r barbara was not used to interpret this result as normal/abnormal . MPV (test code = 13.7 fL 9.5-12.9 H 35184-1) IPF % (test code = 13.2 % 1.3-7.7 H Platelet count 0233769183) measured by fluorescence method. NRBC/100 WBC (test See_Comment [Automat ed code = 0414949181) message] The system which generated this result transmitted reference range : 0.0 - 10.0 /100 WBCs. The refer ence range was not u sed to interpret th is result as normal/abnormal . NRBC x10^3 (test code <0.01 See_Comment [Auto mated = 2147890538) message] The s ystem which generated this result transmitted reference range : 10*3/?L. The reference range was not used to interpret this result as normal/abnormal . GRAN MAT (NEUT) % 79.5 % (test code = 770-8) IMM GRAN % (test code 0.40 % = 8242459876) LYMPH % (test code = 14.6 % 736-9) MONO % (test code = 4.8 % 5905-5) EOS % (test code = 0.4 % 713-8) BASO % (test code = 0.3 % 706-2) GRAN MAT x10^3(ANC) 7.17 10*3/uL 1.88-7.09 H (test code = 3556929298) IMM GRAN x10^3 (test 0.04 10*3/uL 0.00-0.06 code = 8784588965) LYMPH x10^3 (test code 1.32 10*3/uL 1.32-3.29 = 731-0) MONO x10^3 (test code 0.43 10*3/uL 0.33-0.92 = 742-7) EOS x10^3 (test code = 0.04 10*3/uL 0.03-0.39 711-2) BASO x10^3 (test code 0.03 10*3/uL 0.01-0.07 = 704-7) Lab Interpretation Abnormal (test code = 78455-5) [facility] [id number] 17:34:00 Test Item Value Reference Range Interpretation Comments POCT PREG (test code = 1605) Negative On board controls acceptable with Present C Line (test code = 3574) POCT PREG LOT # (test code = HCG [id number]) POCT PREG TEST DATE (test 11/21/2022 code = 3576) Lab Interpretation (test code = Normal 83021-9) [facility]00 Test Item Value Reference Range Interpretation Comments Urinalysis (test Negative Negative Method of s ensitivity- code = BHCGUT) INDETERMINANT : results should be repea sandeep after 48-72 hrs POSIT CONNIE: results may be detected as early as 1 day after the first missed period A dilute urine specimen may no t contain representativel evels of hCG.If pregnanc y is still suspected, a fi rst morning urinespecimen O R a random blood specimen should be obtainedfrom e patient 48-72 hours lat er and re-tested. Urinalysis (test 1.025 1.002-1.036 N code = PREGUSG) [id number] 12:03:00 Test Item Value Reference Range Interpretation [...]
[2023-05-29 16:43] LABS: Absolute Lymphocytes (CBC) 2.3 K/uL (0.7-4.9); Hematocrit 41.6 % (36.0-45.0); Lymphocytes % 22.1 % (15.3-44.8); MCV 86.2 fL (80-100); MPV 10.6 fL (7.6-11.3); Platelets 161 thou/uL (152-406); RBC Red Blood Cell Count 4.83 M/uL (3.86-4.86)
[2023-05-29] MEDS ORDERED: KETOROLAC 30 MG/ML INJ ONE (17:06)
[2023-05-29] MEDS ORDERED: NA CHLORIDE 0.9% 1,000 ML ONE (17:07)
[2023-05-29 17:11] LABS: Magnesium 2.2 mg/dL (1.6-2.4); Potassium 3.7 mEq/L (3.5-5.1); Troponin High Sensitivity 4.1 pg/mL (<58.9)
--- NOTE | 2023-05-29 18:00 | RAD REPORT ---
EXAM DESCRIPTION: CT - Chest For Pe Angio - 05/29/2023 5:48 pm CLINICAL HISTORY: Chest pain COMPARISON: None. TECHNIQUE: Dynamically enhanced axial 3 mm thick images of the chest were obtained during administra tion of 100 mL Isovue 370 IV contrast. Coronal and oblique reconstruction images were generated and r eviewed. Exam utilizes a protocol for optimal evaluation of pulmonary arterial tree. Maximum intensity projections 3D imaging was utilized All CT scans are performed using dose optimization technique as appropriate and may include automated exposure control or mA/KV adjustment according to patient size. FINDINGS: A pulmonary embolus is not seen. A thoracic aortic aneurysm is not noted. A pleural effusion is not seen. A pericardial effusion is not seen. A lung consolidation is not present. IMPRESSION: Negative for a pulmonary embolism.
--- NOTE | 2023-05-29 18:00 | RAD REPORT ---
EXAM DESCRIPTION: Merle Single View05/29/2023 4:47 pm CLINICAL HISTORY: Chest pain COMPARISON: 2014 FINDINGS: The lungs appear clear of acute infiltrate. The heart is normal size IMPRESSION: No acute abnormalities displayed
--- NOTE | 2023-05-29 20:25 | ER ---
Nurse's Notes [facility] Name: Kimber Layton Age: 22 yrs Sex: Female : 2000 Arrival Date: 05/29/2023 Time: 16:04 Bed 18 Private MD: Diagnosis: Chest pain, unspecified;Headache Presentation: 05/29 16:10 Chief complaint: Patient states: Nausea and vomited x1 today. nj1 16:10 Coronavirus screen: Vaccine status: Patient reports being unvaccinated. Ebola Screen: nj1 Patient denies travel to an Ebola-affected area in the 21 days before illness onset. Initial Sepsis Screen: Does the patient meet any 2 criteria? No. Patient's initial sepsis screen is negative. Does the patient have a suspected source of infection? No. Patient's initial sepsis screen is negative. Risk Assessment: Do you want to hurt yourself or someone else? Patient reports no desire to harm self or others. Onset of symptoms was May 29, 2023. 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 - Social history:: Smoking status: Patient denies any tobacco usage or history of. Screenin:41 [facility] ED Fall Risk Assessment (Adult) Score/Fall Risk Level 0 - 2 = Low Risk nj1 Oriented to surroundings, Maintained a safe environment, Hourly rounding (assess needs \\T\\ fall precautionary measures) done. Abuse screen: Denies threats or abuse. Denies injuries from another. Nutritional screening: No deficits noted. Tuberculosis screening: No symptoms or risk factors identified. Assessment: 16:40 General: Appears in no apparent distress. comfortable, Behavior is calm, cooperative, nj1 appropriate for age. Pain: Denies pain. Neuro: Level of Consciousness is awake, alert, obeys commands, Oriented to person, place, time, situation. Cardiovascular: Patient's skin is warm and dry. Respiratory: Airway is patent Respiratory effort is even, unlabored. GI: Reports nausea. 18:00 Reassessment: Patient appears in no apparent distress at this time. Patient and/or nj1 family updated on plan of care and expected duration. Pain level reassessed. Patient is alert, oriented x 3, equal unlabored respirations, skin warm/dry/pink. Patient denies pain at this time. Patient states feeling better. Patient states symptoms have improved. 19:00 Reassessment: Patient appears in no apparent distress at this time. Patient and/or nj1 family updated on plan of care and expected duration. Pain level reassessed. Patient is alert, oriented x 3, equal unlabored respirations, skin warm/dry/pink. 20:00 Reassessment: Patient appears in no apparent distress at this time. Patient and/or nj1 family updated on plan of care and expected duration. Pain level reassessed. Patient is alert, oriented x 3, equal unlabored respirations, skin warm/dry/pink. Patient denies pain at this time. Patient states feeling better. Patient states symptoms have improved. Vital Signs: 16:10 BP 119 / 89; Pulse 78; Resp 18; Temp 98.9(O); Pulse Ox 100% ; Weight 81.65 kg; Height 5 [facility] ft. 8 in. ; 17:30 BP 118 / 81; Pulse 64; Resp 16; Pulse Ox 100% ; nj1 18:20 BP 119 / 77; Pulse 88; Resp 16; Pulse Ox 100% ; nj1 19:40 BP 115 / 81; Pulse 73; Resp 18; Pulse Ox 100% ; Pain 0/10; nj1 16:10 Body Mass Index 27.37 (81.65 kg, 172.72 cm) ms1 19:40 Pain Scale: Adult [facility] ED Course: 16:07 Patient arrived in ED. kj1 16:07 [facility]-C [facility] kb 16:07 Bharath Gee MD is Attending Physician. kb 16:10 Arm band placed on. nj1 16:32 Initial lab(s) drawn, by wi, sent to lab. 3 16:33 Edna Acosta, AURY is Primary Nurse. nj1 16:38 Triage completed. nj1 16:41 Patient has correct armband on for positive identification. Bed in low position. Call [facility] light in reach. Provided Education on: fall precautions, call light. 16:49 XRAY Chest (1 view) In Process Unspecified. EDMS 17:50 CT Chest For PE Angio In Process Unspecified. EDMS 20:31 No provider procedures requiring assistance completed. IV discontinued, intact, mb9 bleeding controlled, No redness/swelling at site. Pressure dressing applied. Administered Medications: 17:04 Drug: NS 0.9% IV 1000 ml Route: IV; Rate: 1000 ml; Site: left antecubital; nj1 17:04 Drug: Ketorolac IVP 15 mg Route: IVP; Site: left antecubital; nj1 20:00 Follow up: Response: No adverse reaction; Pain is decreased nj1 Outcome: 20:24 Discharge ordered by . max 20:31 Discharged to home ambulatory. mb9 20:31 Condition: stable 20:31 Discharge instructions given to patient, Instructed on discharge instructions, follow up and referral plans. Demonstrated understanding of instructions, follow-up care. 20:32 Patient left the ED. mb9 Signatures: Dispatcher [employer] EDNY Mattie Reyes, MAINTAINER [employer]ATERWORKS-C MAINTAINER [employer]-CkChristoph Mckinnon tm3 Lillian Reyes kj1 Lucia Villalobos, RN RN mb9 Edna Acosta RN RN nj1
--- NOTE | 2023-05-29 20:25 | EDPHYS ---
Physician Documentation [facility] Name: Kimber Layton Age: 22 yrs Sex: Female : 2000 Arrival Date: 05/29/2023 Time: 16:04 Bed 18 Private MD: ED Physician Bharath Gee HPI: 05/29 16:30 This 22 yrs old Female presents to ER via Unassigned with complaints of chest pain, kb migraine. 16:30 The patient or guardian reports chest pain that is located primarily in the chest kb diffusely. The pain does not radiate. Associated signs and symptoms: Pertinent positives: headache, nausea, shortness of breath, vomiting. The chest pain is described as sharp. Duration: The patient or guardian reports a single episode. Modifying factors: The symptoms are alleviated by nothing. the symptoms are aggravated by nothing. Severity of pain: At its worst the pain was moderate in the emergency department the pain has resolved. The patient has not experienced similar symptoms in the past. The patient has not recently seen a physician. 16:31 Patient reports she woke up with a migraine this morning, took 2 Advil at lunchtime and kb the headache started to go away. States she started feeling shortness of breath that progressed to chest pain with nausea. States she vomited once prior to arrival. Symptoms have been resolving but still reports headache. 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 - Social history:: Smoking status: Patient denies any tobacco usage or history of. ROS: 16:29 Constitutional: Negative for fever, chills, and weight loss. kb 16:29 Cardiovascular: Positive for chest pain. 16:29 Respiratory: Positive for shortness of breath. 16:29 Neuro: Positive for headache. 16:29 All other systems are negative. 16:32 Abdomen/GI: Positive for nausea and vomiting, Negative for abdominal pain. kb Exam: 16:29 Constitutional: This is a well developed, well nourished patient who is awake, alert, kb and in no acute distress. Head/Face: Normocephalic, atraumatic. ENT: Moist Mucous membranes Cardiovascular: Regular rate and rhythm with a normal S1 and S2. No gallops, murmurs, or rubs. No pulse deficits. Respiratory: Respirations even and unlabored. No increased work of breathing. Talking in full sentences Abdomen/GI: Soft, non-tender. No distention Skin: Warm, dry with normal turgor. Normal color. MS/ Extremity: Pulses equal, no cyanosis. Neurovascular intact. Full, normal range of motion. Neuro: Awake and alert, GCS 15, oriented to person, place, time, and situation. Moves all extremities. Normal gait. Vital Signs: 16:10 BP 119 / 89; Pulse 78; Resp 18; Temp 98.9(O); Pulse Ox 100% ; Weight 81.65 kg; Height 5 nj1 ft. 8 in. ; 17:30 BP 118 / 81; Pulse 64; Resp 16; Pulse Ox 100% ; nj1 18:20 BP 119 / 77; Pulse 88; Resp 16; Pulse Ox 100% ; nj1 19:40 BP 115 / 81; Pulse 73; Resp 18; Pulse Ox 100% ; Pain 0/10; nj1 16:10 Body Mass Index 27.37 (81.65 kg, 172.72 cm) nj1 19:40 Pain Scale: Adult nj1 MDM: 16:07 Patient medically screened. kb 16:29 Differential diagnosis: abnormal EKG, acute myocardial infarction, coronary artery kb disease pulmonary embolus, migraine, heat exhaustion. Data reviewed: vital signs, nurses notes. Historians other than the Patient: EMS: [facility]. 20:24 Consideration of Admission/Observation Escalation of care including kb admission/observation considered. admission considered but HEART score 1. Pt feeling better, pain free. Counseling: I had a detailed discussion with the patient and/or guardian regarding the historical points, exam findings, and any diagnostic results supporting the discharge/admit diagnosis, lab results, radiology results, the need for outpatient follow up, a family practitioner, to return to the emergency department if symptoms worsen or persist or if there are any questions or concerns that arise at home. 05/29 16:08 Order name: Basic Metabolic Panel; Complete Time: 17:12 kb 05/29 16:08 Order name: CBC with Diff; Complete Time: 16:56 kb 05/29 16:08 Order name: D-Dimer; Complete Time: 16:56 kb 05/29 16:08 Order name: Magnesium; Complete Time: 17:12 kb 05/29 16:08 Order name: Troponin HS; Complete Time: 17:12 kb 05/29 16:08 Order name: CPK; Complete Time: 17:12 kb 05/29 18:44 Order name: Troponin High Sensitivity; Complete Time: 20:23 kb 05/29 16:08 Order name: XRAY Chest (1 view); Complete Time: 18:04 kb 05/29 16:56 Order name: CT Chest For PE Angio; Complete Time: 18:04 kb 05/29 16:08 Order name: EKG; Complete Time: 16:09 kb 05/29 16:08 Order name: Cardiac monitoring; Complete Time: 18:44 kb 05/29 16:08 Order name: EKG - Nurse/Tech; Complete Time: 18:44 kb 05/29 16:08 Order name: IV Saline Lock; Complete Time: 16:40 kb 05/29 16:08 Order name: Labs collected and sent; Complete Time: 16:40 kb 05/29 16:08 Order name: O2 Per Protocol; Complete Time: 16:40 kb 05/29 16:08 Order name: O2 Sat Monitoring; Complete Time: 16:40 kb Administered Medications: 17:04 Drug: NS 0.9% IV 1000 ml Route: IV; Rate: 1000 ml; Site: left antecubital; nj1 17:04 Drug: Ketorolac IVP 15 mg Route: IVP; Site: left antecubital; nj1 20:00 Follow up: Response: No adverse reaction; Pain is decreased nj1 Disposition: 05/30 10:02 Co-signature as Attending Physician, Bharath eGe MD I reviewed the patient's care rn provided by the Advanced Practice Provider and agree with the diagnosis and treatment plan. Disposition Summary: 05/29/23 20:24 Discharge Ordered Location: Home kb Condition: Stable kb Diagnosis - Chest pain, unspecified kb - Headache kb Followup: kb - With: Emergency Department - When: As needed - Reason: Worsening of condition Followup: kb - With: Private Physician - When: 2 - 3 days - Reason: Recheck today's complaints, Continuance of care, Re-evaluation by your physician Discharge Instructions: - Discharge Summary Sheet kb - Nonspecific Chest Pain, Adult, [id number] kb - General Headache Without Cause, [id number] kb Forms: - Medication Reconciliation Form kb - Thank You Letter kb - Antibiotic Education kb - Prescription Opioid Use kb - Patient Portal Instructions kb - Leadership Thank You Letter kb - Work release form nj1 Signatures: Dispatcher [employer] EDWI Mattie Reyes, CLAM BED LABORER-C CLAM BED LABORER-Bharath Phan MD MD rn Jaco, Norma, RN RN nj1 Corrections: (The following items were deleted from the chart) 05/29 16:32 16:30 Associated signs and symptoms: Pertinent positives: headache, shortness of kb breath, kb
[2023-05-29 20:58] VITALS: TEMP 98.9; O2SAT 100
[2023-05-29 21:02] VITALS: BP 115/81
--- NOTE | 2023-05-30 18:44 | EKG ---
Test Date: 2023-05-29 Test Time: 18:02:17 Product Marketing Manager: TODD MEASUREMENT RESULTS: Intervals: Rate: 83 MD: 120 QRSD: 70 QT: 368 QTc: 432 [place]: P: 53 MD: 120 QRS: 52 T: 30 INTERPRETIVE STATEMENTS: Normal sinus rhythm Normal ECG Compared to ECG 11/14/2015 15:35:33 Sinus arrhythmia no longer present Short MD interval no longer present Electronically Signed On 05-30-23 18:42:14 CDT by Gilson Holbrook
== END 2023-05-29 20:32 | disposition home or self-care (01) ==
LOC: ER 16:04
DX: R07.9 Chest pain, unspecified (principal); G43.909 Migraine, unspecified, not intractable, without status migrainosus; R11.0 Nausea; K21.9 Gastro-esophageal reflux disease without esophagitis; J45.909 Unspecified asthma, uncomplicated; Z88.0 Allergy status to penicillin; Z88.1 Allergy status to other antibiotic agents
CPT/HCPCS: 36415; 71045; 71275; 80048; 82550; 83735; 84484; 85025; 85379; 93005; 96374; 99284; J7030; Q9967

== ENCOUNTER 2023-08-09 04:37 | Emergency (ER) | payer SELFPAY ==
--- OUTSIDE RECORDS SUMMARY | 2023-08-09 04:40 | XMS REPORT | Continuity of Care Document ---
:2000 Author Organization Formerly [facility] t Address [address] [place] [address] [place] [id number] Care Team Providers Name Role Phone PCP, PATIENT DOES NOT HAVE A Primary Care Physician Unavaila ALFREDO Brink Attending Clinician Unavailable Alfredo Godinez Attending Clinician Doctor Unassigned, [place] Attending Clinician Unavailable NADINE ESCOBEDO Attending Clinician [...] rs active active ity of problems problems [facility] Allergies, Adverse Reactions, Alerts Allergy Allergy Status Severity Reaction(s) Onset Inactive Treating Comm ents Source Name Type Date Date Clinician PENICILL Drug Active Unknown-Cmnt 2020-09 Un rafael INS Class 2-16 ity of 00:00: [place] 00 Medical Branch Penicill Propensi Active Unknown - 2020-09 Childhood Univers ins ty to See comments 2-16 allergy-t i ty of adverse 00:00: old not [place] reaction 00 to take Medical s by Branch parents Penicill Propensi Active Unknown - 2020-09 Childhood Univers ins ty to See comments 2-16 allergy-t i ty of adverse 00:00: old not [place] reaction 00 to take Medical s by Branch parents NO KNOWN Drug Active [facility] ALLERGIE Class ity of S [facility] Social History Social Habit Start Date Stop Date Quantity Comments Source Exposure to 2022-09-08 2022-09-18 Not sure [facility] SARS-CoV-2 (event) 00:00:00 21:03:00 Medica l Branch [facility] [birth year] [facility] [place] [facility]:00 Medical Branch Smoking Status Start Date Stop Date Source Tobacco smoking consumption [facility] unknown Branch Medications Ordered Filled Start Stop Current Ordering Indication Dosage Frequency Signature Comments Components Source Medication Medication Date Date Medication? Clinician (SIG) Name Name doxycycline 2021-09 No 100mg 100 mg, U nivers hyclate 11-20 Oral, ity of (Vibramycin 05:45: 05[place]49 [place] capsule 00 :00 dose, On Medica l 100 mg [facility] 09/18/22 at 2345, RADHA
Re ason for Anti-Infec tive: Documented Infection< br>Documen sandeep Infection Site: HEENT
D uration of Therapy: 7 days benzonatate 2021-09 No 200mg 200 mg, U nivers (TESSALON 11-20 Oral, ity of PERLES) 05:30: 04:47 ONCE, 1 [place] capsule 200 00 :00 dose, On Medi noe mg [facility] 09/18/22 at 2330, RADHA predniSONE 2021-09 No 40mg 40 mg, Univ ers (DELTASONE) 11-20 Oral, ity of tablet 40 04:45: 04:46 [place]CE[place] mg 00 :00 dose, On Medical [facility] 09/18/22 at 2245, RADHA ondansetron 2021-09- No 4mg 4 mg, Slow Univers (ZOFRAN 11-20 IV Push, ity of (PF)) 04:00: 03:25 ONCE, 1 [place] injection 4 00 :00 dose, On Medi noe mg [facility] 09/18/22 at 2200, RADHA NaCl 0.9% 2021-09 No 1000mL at 999 Uni vers (NS) bolus 2 12-27 mL/hr, ity of infusion 04:00: 05:31 1,000 mL, Abimael as 1,000 mL 00 :00 IV Medical Infusion, Branch ONCE, 1 dose, On 09/18/22 at 2200, RADHA benzonatate 2021-09 Yes [id number] 200mg Take 1 Univers 200 mg 11-19 capsule by ity of capsule 00:00: mouth 3 [place] 00 (three) Medical times Branch daily as needed for Cough. doxycycline 2021-09- No [id number] 100mg Take 1 Univers hyclate 100 11-19 capsule by i ty of mg capsule 00:00[place] 05:59 [place] the Medical morning Branch and 1 capsule in the evening. Do all this for 7 days. predniSONE 2021-09 No [id number] 40mg Take 2 Univers 20 mg 11-19 tablets by ity of tablet 00:00: 05:59 mouth in [place] 00 :00 the Medical morning Branch for 5 days. activated 2021- No 25g 25 g, Univer s charcoal-so 10-04 Oral, ity of rbitoL 19:00: 18:43 ONCE, 1 [place] (ACTIDOSE/S 00 :00 dose, On Medi noe ORBITAL) 25 Tue [place] gram/120 mL 10/04/21 at suspension 1300, RADHA 25 g predniSONE 2020-09- No [id number] 50mg Take 5 Univers 10 mg 11-10 tablets by ity of tablet 00:00: 05:59 mouth [place] 00 :00 daily for Medical 4 days. Branch albuterol 2020-09- No 5mg 5 mg, Univer s (PROVENTIL) 11-09- Inhalation i ty of 2.5 mg /3 16:30: 15:33 , [place] 1 [place] mL (0.083 00 :00 dose, On Medica l %) [facility] nebulizer 09/08/21 solution 5 at 1030, mg RADHA predniSONE 2020-09 No 50mg 50 mg, Univ ers (DELTASONE) 11-09- Oral, ity of tablet 50 16:30: 15:41 [...] 09/08/21 at 0930, Routine ondansetron 2020-09 Yes [id number] 4mg Take 1 Univers (ZOFRAN 2-16 tablet by ity of ODT) 4 mg 00:00: mouth [place] disintegrat 00 every 8 Medic al ing tablet (eight) Branch hours as needed for Nausea and Vomiting (N/V). ondansetron 2020-09 Yes [id number] 4mg Take 1 Univers (ZOFRAN 2-16 tablet by ity of ODT) 4 mg 00:00: mouth [place] disintegrat 00 every 8 Medic al ing tablet (eight) Branch hours as needed for Nausea and Vomiting (N/V). ondansetron 2020-09 Yes [id number] 4mg Take 1 Univers (ZOFRAN 2-16 tablet by ity of ODT) 4 mg 00:00: mouth [place] disintegrat 00 every 8 Medic al ing tablet (eight) Branch hours as needed for Nausea and Vomiting (N/V). ondansetron 2020-09 Yes [id number] 4mg Take 1 Univers (ZOFRAN 2-16 tablet by ity of ODT) 4 mg 00:00: mouth [place] disintegrat 00 every 8 Medic al ing tablet (eight) Branch hours as needed for Nausea and Vomiting (N/V). Vital Signs Vital Name Observation Time Observation Value Comments Source Systolic blood 2022-09-19 04:00:00 115 mm[Hg] Univer sity of pressure [place] [facility] [place] Diastolic blood 2022-09-19 04:00:00 60 mm[Hg] Unive rsity of [facility] Heart rate 2022-09-19 04:00:00 66 /min Universi ty of [facility] Respiratory rate 2022-09-19 04:00:00 18 /min Univ ersity of [facility] Oxygen saturation in 2022-09-19 04:00:00 97 /min University of Arterial blood by [place] REEL Qualified noe Pulse oximetry Branch Body temperature 2022-09-19 03:06:00 37.39 Tiara Univ ersity [facility] Body height 2022-09-19 03:06:00 172.7 cm Universi ty of [facility] Body weight 2022-09-19 03:06:00 81.647 kg Universi ty of [facility] BMI 2022-09-19 03:06:00 27.37 kg/m2 Universi ty of [facility] Body height 2021-10-04 16:49:00 165.1 cm Universi ty of [facility] Body weight 2021-10-04 16:49:00 79.379 kg Universi ty of [facility] BMI 2021-10-04 16:49:00 29.12 kg/m2 Universi ty of [facility] Oxygen saturation in 2021-10-04 16:49:00 100 /min University of Arterial blood by [facility] noe Pulse oximetry Branch Systolic blood 2021-10-04 16:49:00 133 mm[Hg] Univer sity of [facility] Diastolic blood 2021-10-04 16:49:00 96 mm[Hg] Unive rsity of [facility] Heart rate 2021-10-04 16:49:00 112 /min Universi ty of [facility] Respiratory rate 2021-10-04 16:49:00 22 /min Univ ersity of [facility] Systolic blood 2021-09-08 16:36:51 122 mm[Hg] Univer sity of [facility] Diastolic blood 2021-09-08 16:36:51 60 mm[Hg] Unive rsity of pressure [facility] Heart rate 2021-09-08 16:36:51 94 /min [facility] Body temperature 2021-09-08 16:36:51 36.78 [facility] rate 2021-09-08 16:36:51 18 /min [facility] Oxygen saturation in 2021-09-08 16:36:51 99 /min [facility] Arterial blood by [facility] Pulse oximetry Branch Body height 2021-09-08 13:52:00 172.7 cm [facility] Body weight 2021-09-08 13:52:00 88.451 kg [facility] BMI 2021-09-08 13:52:00 29.65 kg/m2 [facility] Height 2021-07-27 12:41:[address] [facility] Weight Measured 2021-07-27 12:41:17 [facility] Body Temperature 2021-07-27 12:41:[address] [facility] Heart Rate 2021-07-27 12:41:[address] [facility] Respiratory Rate 2021-07-27 12:41:[address] [facility] O2 % BldC Oximetry 2021-07-27 12:41:[address] [facility] BP Systolic 2021-07-27 12:41:[address] [facility] BP Diastolic 2021-07-27 12:41:[address] [facility] BMI (Body Mass 2021-07-27 12:41:[address] [facility] [facility] Procedures Procedure Date / Time Performing Clinician Source Performed XR CHEST 1 VW 2022-09-19 03:47:07 Alfredo Cohen [facility] URINALYSIS 2022-09-19 03:33:00 Alfredo Cohen [facility] POCT TEST 2022-09-19 03:33:00 Alfredo Cohen [facility] TROPONIN I 2022-09-19 03:25:00 [facility]. METABOLIC PANEL 2022-09-19 03:25:00 Alfredo Cohen [facility] ([id number]) [facility] CBC WITH DIFF 2022-09-19 03:25:00 Alfredo Cohen [facility] RAPID INFLUENZA A/B 2022-09-19 03:25:00 Alfredo Cohen [facility] acute hospital N-TERMINAL PRO-BNP 2022-09-19 03:25:00 [facility] (ID NOW RAPID 2022-09-19 03:25:[facility] Medical [place] EXTERNAL PROVIDER 2021-10-19 06:01:00 Doctor Unassigned, [facility] RECORDS Name [facility] CT HEAD WO CONTRAST 2021-10-04 18:04:08 Nadine Escobedo [facility] XR CHEST 1 VW 2021-10-04 18:03:00 Nadine Escobedo [facility] acute hospital URINE DRUG (IMMUNOASSAY) 2021-10-04 17:40:00 Nadine Escobedo [facility] SCREEN CREATINE KINASE 2021-10-04 17:35:00 Nadine Escobedo General acute hospital LIPASE 2021-10-04 17:35:00 Nadine Escobedo [facility] acute hospital TROPONIN I 2021-10-04 17:35:00 Nadine Escobedo [facility] acute hospital COMP. METABOLIC PANEL 2021-10-04 17:35:00 Nadine Escobedo [facility] ([id number]) [facility] SALICYLATE 2021-10-04 17:35:00 Nadine Escobedo [facility] acute hospital ETHANOL 2021-10-04 17:35:00 Nadine Escobedo [facility] acute hospital CBC WITH DIFF 2021-10-04 17:35:00 Nadine Escobedo [facility] acute hospital URINALYSIS 2021-10-04 17:35:00 Nadine Escobedo [facility] COVID-19 (ID NOW RAPID 2021-10-04 17:35:00 Nadine Escobedo [facility] TESTING) [facility] POCT TEST 2021-10-04 17:34:00 Nadine Escobedo [facility] NOTICE OF PRIVACY 2021-09-08 13:48:15 Doctor Unassigned, No [facility] PRACTICES Name Medical Branch CONSENT/REFUSAL FOR 2021-09-08 13:48:03 Doctor Unassigned, No [facility] DIAGNOSIS AND TREATMENT Name [facility] Encounters Start End Encounter Admission Attending Care Care Encounter Source Date/Time Date/Time Type Type Clinicians Facility Department ID 2022-09-18 2022-09-18 Emergency X VICKI [facility] ERT [id number] Univers 21:01:00 23:53:00 ALFREDO grace [facility] 2022-09-18 2022-09-18 [facility] [id number] Univers 21:01:00 23:53:00 Alfredo MONTANO 350.1.13.10 i ty of [place] 4.2.7.2.686 [facility] [id number] [address] 2021-10-19 2021-10-19 Orders Doctor OLIVAREZ [id number] [id number] Univers 00:00:00 00:00:00 Only Unassigned, HAKEEM 350.1.13.10 ity of [place] [facility] 4.2.7.2.686 Abimael [id number] [facility] 009 Branch 2021-10-04 2021-10-04 Emergency [facility] [id number] Univers 10:52:00 13:41:00 NADINE lesly [facility] 2021-10-04 2021-10-04 Emergency [facility] [id number] Univers 10:52:00 13:41:00 Nadine MONTANO 350.1.13.10 i ty of [place] 4.2.7.2.686 [facility] [id number] [address] 2021-09-08 2021-09-08 Emergency [facility] ERT [id number] Univers 07:53:00 10:38:00 KATHI grace [facility] 2021-09-08 2021-09-08 Emergency [facility] [id number] Univers 07:53:00 10:38:00 Kathi MONTANO 350.1.13.10 [place] [place] 4.2.7.2.686 [facility] [id number] [place] [address] Branch 2019-10-14 2019-10-[address] J[id number] [facility] 13:42:00 16:23:00 Emergency 1.360193. Regional 11 L es - 3.4991.3. [facility] St. 1.2 [place] ([place]) Results Test Description Test Time Test Comments Results Result Comments Source TROPONIN I 2022-09-19 04:03:49 Test Item Value Reference Range Interpretation Comme nts TROPONIN I (test code = 0.003 ng/mL See_Comment [Au tomated message] The [id number]) system which ge nerated this result tra [...] biotin. Lab Interpretation Normal (test code = 94289-9) [facility] [id number] 04:00:28 Test Item Value Reference Range Interpretation Comments NT-proBNP (test code 31 pg/mL See_Comment [Autom ated = 1137980050) message] The system which generated this result transmitted reference range : <=125. The reference range was not used to interpret this result as normal/abnormal . HEMANT (test code = HEMANT) Biotin has been reported to cause a negative bias, interpret results relative to patient's use of biotin. Lab Interpretation Normal (test code = 53489-3) [facility]. METABOLIC PANEL ([id number])2022-09-19 03:52:25 Test Item Value Reference Range Interpretation Comments NA (test code = 138 mmol/L 135-145 7256014604) K (test code = 4.0 mmol/L 3.5-5.0 5430582744) CL (test code = 105 mmol/L 98-108 7481113646) CO2 TOTAL (test code = 24 mmol/L 23-31 7028533639) AGAP (test code = 2-16 3711728634) BUN (test code = 18 mg/dL 7-23 6796155324) GLUCOSE (test code = 127 mg/dL 70-110 H 6779065798) CREATININE (test code = 0.81 mg/dL 0.50-1.04 2570691808) TOTAL BILI (test code = 0.3 mg/dL 0.1-1.1 7989459248) CALCIUM (test code = 8.8 mg/dL 8.6-10.6 4679763644) T PROTEIN (test code = 7.1 g/dL 6.3-8.2 1334075647) ALBUMIN (test code = 4.4 g/dL 3.5-5.0 4090517947) ALK PHOS (test code = 52 U/L 34-122 5858779003) ALTv (test code = 25 U/L 5-35 1742-6) AST(SGOT) (test code = 27 U/L 13-40 9698933973) eGFR (test code = mL/min/1.73m2 6861779009) HEMANT (test code = HEMANT) Association of [...] tests). Lab Interpretation Abnormal (test code = 02535-7) [facility] WITH [id number] 03:38:46 Test Item Value Reference Range Interpretation Comments WBC (test code = See_Comment [Automated 0646-2) message] The sy stem which generated this result transmitted reference range : 4.30 - 11.10 10*3/?L. The reference range was not used to interpret this result as normal/abnormal . RBC (test code = See_Comment [Automated 679-8) message] The sy stem which generated this [...] (test code = 37.8 fL 39.0-49.9 L 74034-8) RDW-CV (test code = 12.3 % 12.0-15.5 788-0) PLT (test code = See_Comment L [Automated 777-3) message] The sy stem which generated this result transmitted reference range : 166 - 358 10*3/ ?L. The reference r barbara was not used to interpret this result as normal/abnormal . MPV (test code = 12.8 fL 9.5-12.9 87781-9) NRBC/100 WBC (test See_Comment [Automat ed code = 9058225309) message] The system which generated this result transmitted reference range : 0.0 - 10.0 /100 WBCs. The refer ence range was not u sed to interpret th is result as normal/abnormal . NRBC x10^3 (test code See_Comment [Auto mated = 5410920040) message] The s ystem which generated this result transmitted reference range : 10*3/?L. The reference range was not used to interpret this result as normal/abnormal . GRAN MAT (NEUT) % 69.0 % (test code = 770-8) IMM GRAN % (test code 0.30 % = 3162994783) LYMPH % (test code = 25.3 % 736-9) MONO % (test code = 4.6 % 5905-5) EOS % (test code = 0.6 % 713-8) BASO % (test code = 0.2 % 706-2) GRAN MAT x10^3(ANC) 7.47 10*3/uL 1.88-7.09 H (test code = 1437242358) IMM GRAN x10^3 (test 0.03 10*3/uL 0.00-0.06 code = 6725770261) LYMPH x10^3 (test code 2.74 10*3/uL 1.32-3.29 = 731-0) MONO x10^3 (test code 0.50 10*3/uL 0.33-0.92 = 742-7) EOS x10^3 (test code = 0.07 10*3/uL 0.03-0.39 711-2) BASO x10^3 (test code 0.01-0.07 = 704-7) Lab Interpretation Abnormal (test code = 48301-4) [facility] [id number] 03:33:00 Test Item Value Reference Range Interpretation Comments POCT PREG (test code = 1605) negative Lab Interpretation (test code = Normal 83008-0) [facility] [id number] 18:58:19 Test Item Value Reference Interpretation Comments Range TROPONIN I (test 0.004 ng/mL See_Comment [Automated code = 8363620906) message] The system which generated this result [...] biotin. Lab Interpretation Normal (test code = 78423-2) [facility]ETHANOL2022-01-11 18:52:56 Test Item Value Reference Range Interpretation Comments ALCOHOL (test code = <10 mg/dL 9869600097) HEMANT (test code = HEMANT) <10 Dwyhyyro68-418 Toxic>100 Depression of CASTING COORDINATOR>400 Fatalities Reported [facility]AL[facility]2022-01-11 18:51:50 Test Item Value Reference Range Interpretation Comments SALICYLATE (test code <10 mg/L = 6300299854) HEMANT (test code = HEMANT) Therapeutic Range: ? Analgesic and Antipyretic Use ? 20-100 mg/L ? ? Anti-Inflammatory Use ? 100-250 mg/L Toxic Range: ? Greater than 300 mg/L [facility] CampusACETAMINOPHEN2022-01-11 18:51:35 Test Item Value Reference Range Interpretation Comments ACETAMINOP (test code = <10.0 10.0-30.0 L 7343511065) HEMANT (test code = HEMANT) Toxic: Greater than 200 ug/mL @ 4 hour post ingestion or greater than 50 ug/mL @ 12 hour post ingestion Lab Interpretation (test Abnormal code = 00486-5) [facility]. METABOLIC PANEL ([id number])2021-10-04 18:43:08 Test Item Value Reference Range Interpretation Comments NA (test code = 138 mmol/L 135-145 5649271770) K (test code = 4.5 mmol/L 3.5-5.0 7741710224) CL (test code = 106 mmol/L 98-108 2040509646) CO2 TOTAL (test code 25 mmol/L 23-31 = 2718949208) AGAP (test code = 2-16 6083910597) BUN (test code = 14 mg/dL 7-23 5921868086) GLUCOSE (test code = 110 mg/dL 70-110 8661215969) CREATININE (test code 0.81 mg/dL 0.50-1.04 = 6271326031) TOTAL BILI (test code 0.7 mg/dL 0.1-1.1 = 8835170392) CALCIUM (test code = 9.4 mg/dL 8.6-10.6 4573008073) T PROTEIN (test code 8.0 g/dL 6.3-8.2 = 2155561233) ALBUMIN (test code = 4.9 g/dL 3.5-5.0 5008748832) ALK PHOS (test code = 55 U/L 34-122 5595445048) ALTv (test code = 19 U/L 5-35 1742-6) AST(SGOT) (test code 32 U/L 13-40 = 2501989036) eGFR (test code = mL/min/1.73m2 1846821851) HEMANT (test code = HEMANT) Association of [...] or urine or abnormalities in imaging tests). [facility]2022-[facility]-11 18:42:48 Test Item Value Reference Range Interpretation Comments LIPASE (test code = 0568452802) 79 U/L 0-220 Lab Interpretation (test code = Normal 30859-5) [facility] [id number] 18:42:28 Test Item Value Reference Range Interpretation Comments CK (test code = 8486233890) 60 U/L 33-194 Lab Interpretation (test code = Normal 69126-1) [facility] WITH [id number] 18:29:45 Test Item Value Reference Range Interpretation Comments WBC (test code = See_Comment [Automated 2548-2) message] The sy stem which generated this result transmitted reference range : 4.30 - 11.10 10*3/?L. The reference range was not used to interpret this result as normal/abnormal . RBC (test code = See_Comment [Automated 983-0) message] The sy stem which generated this [...] RDW-SD (test code = 39.6 fL 39.0-49.9 58311-6) RDW-CV (test code = 12.8 % 12.0-15.5 788-0) PLT (test code = See_Comment [Automated 777-3) message] The sy stem which generated this result transmitted reference range : 166 - 358 10*3/ ?L. The reference r barbara was not used to interpret this result as normal/abnormal . MPV (test code = 13.7 fL 9.5-12.9 H 35395-9) IPF % (test code = 13.2 % 1.3-7.7 H Platelet count 9158916956) measured by fluorescence method. NRBC/100 WBC (test See_Comment [Automat ed code = 1994605937) message] The system which generated this result transmitted reference range : 0.0 - 10.0 /100 WBCs. The refer ence range was not u sed to interpret th is result as normal/abnormal . NRBC x10^3 (test code <0.01 See_Comment [Auto mated = 7512553366) message] The s ystem which generated this result transmitted reference range : 10*3/?L. The reference range was not used to interpret this result as normal/abnormal . GRAN MAT (NEUT) % 79.5 % (test code = 770-8) IMM GRAN % (test code 0.40 % = 2339469034) LYMPH % (test code = 14.6 % 736-9) MONO % (test code = 4.8 % 5905-5) EOS % (test code = 0.4 % 713-8) BASO % (test code = 0.3 % 706-2) GRAN MAT x10^3(ANC) 7.17 10*3/uL 1.88-7.09 H (test code = 4693118682) IMM GRAN x10^3 (test 0.04 10*3/uL 0.00-0.06 code = 4664334939) LYMPH x10^3 (test code 1.32 10*3/uL 1.32-3.29 = 731-0) MONO x10^3 (test code 0.43 10*3/uL 0.33-0.92 = 742-7) EOS x10^3 (test code = 0.04 10*3/uL 0.03-0.39 711-2) BASO x10^3 (test code 0.03 10*3/uL 0.01-0.07 = 704-7) Lab Interpretation Abnormal (test code = 14495-0) [facility] [id number] 17:34:00 Test Item Value Reference Range Interpretation Comments POCT PREG (test code = 1605) Negative On board controls acceptable with Present C Line (test code = 3574) POCT PREG LOT # (test code = HCG [id number]) POCT PREG TEST DATE (test 11/21/2022 code = 3576) Lab Interpretation (test code = Normal 67271-5) [facility] CampusUrinalysis2019-12-05 12:04:00 Test Item Value Reference Range Interpretation [...] (test 1.025 1.002-1.036 N code = PREGUSG) [id number] 12:03:00 Test Item Value Reference Range Interpretation [...]
[2023-08-09 05:47] LABS: Absolute Lymphocytes (CBC) 2.5 K/uL (0.7-4.9); Hematocrit 40.6 % (36.0-45.0); Lymphocytes % 25.8 % (15.3-44.8); MCV 85.9 fL (80-100); Platelets 183 thou/uL (152-406); RBC Red Blood Cell Count 4.73 M/uL (3.86-4.86)
[2023-08-09] MEDS ORDERED: ONDANSETRON 4 MG/2 ML VIAL ONE (05:52)
[2023-08-09 06:00] LABS: Albumin 3.6 g/dL (3.4-5.0); Bilirubin Total 0.2 mg/dL (0.2-1.0); Potassium 3.7 mEq/L (3.5-5.1); Protein, Total 7.4 g/dL (6.4-8.2)
[2023-08-09] MEDS ORDERED: PROMETHAZINE 25 MG TABLET ONE (06:22)
[2023-08-09 06:34] LABS: SARS-CoV-2 Antigen Rapid Res Negative (Negative)
[2023-08-09 06:38] LABS: Specific Gravity 1.004 (1.005-1.030)
[2023-08-09 06:41] LABS: Specific Gravity < 1.005 (1.005-1.030); Urine Bacteria <20 /HPF (<20); Urine Bilirubin NEGATIVE (Negative); Urine Blood Negative (Negative); Urine Clarity Turbid (Clear); Urine Color Colorless (Yellow); Urine Glucose NEGATIVE (Negative); Urine Protein NEGATIVE (Negative); Urine RBC None Seen /HPF (None Seen); Urine Urobilinogen Normal (Normal)
[2023-08-09 06:42] LABS: Barbiturates NEGATIVE (NEGATIVE); Benzodiazepines NEGATIVE (NEGATIVE); Cocaine NEGATIVE (NEGATIVE); METHAMPHETAM NEGATIVE (NEGATIVE); Methadone NEGATIVE (NEGATIVE); Opiates NEGATIVE (NEGATIVE); Phencyclidine NEGATIVE (NEGATIVE); THC Cannibis POSITIVE (NEGATIVE)
[2023-08-09] MEDS ORDERED: CODEINE 12mg/APAP 120mg PER 5 ML UCUP ONE (06:54)
--- NOTE | 2023-08-09 07:00 | EDPHYS ---
Physician Documentation [facility] Name: Kimber Layton Age: 22 yrs Sex: Female : 2000 Arrival Date: 08/09/2023 Time: 04:37 Bed 13 Private MD: ED Physician Shen Cao HPI: 08/09 05:05 This 22 yrs old Female presents to ER via Ambulatory with complaints of sp4 Vomiting, Chest Congestion. 05:46 PMH - Historical: Allergies: Amoxicillin; PENICILLINS; Motrin PMHx: Asthma; GERD PSHx: sp4 left knee; . 22-year-old female presents with vomiting for the past 2 days associated with chest congestion. Patient states she is not able to keep anything down. Denied use of drugs or alcohol. Historical: - Allergies: 04:49 Amoxicillin; bp 04:49 Motrin; bp 04:49 PENICILLINS; bp - PMHx: 04:49 Asthma; GERD; bp - PSHx: 04:49 left knee; bp - Immunization history:: Adult Immunizations up to date. - Social history:: Smoking status: unknown. - Family history:: not pertinent. ROS: 05:46 Constitutional: Negative for fever, chills, and weight loss, positive for nausea, sp4 vomiting, chest congestion 05:46 All other systems are negative, Exam: 05:46 Constitutional: This is a well developed, well nourished patient who is awake, alert, sp4 and in no acute distress. Head/Face: Normocephalic, atraumatic. Eyes: Pupils equal round and reactive to light, extra-ocular motions intact. Lids and lashes normal. Conjunctiva and sclera are not injected. Cornea within normal limits. Periorbital areas with no swelling, redness, or edema. ENT: Nares patent. No nasal discharge, no septal abnormalities noted. Tympanic membranes are normal and external auditory canals are clear. Oropharynx with no redness, swelling, or masses, exudates, or evidence of obstruction, uvula midline. Mucous membranes moist. Neck: Trachea midline, no thyromegaly or masses palpated, and no cervical lymphadenopathy. Supple, full range of motion without nuchal rigidity, or vertebral point tenderness. Chest/axilla: Normal chest wall appearance and motion. Nontender with no deformity. No lesions are appreciated. Cardiovascular: Regular rate and rhythm with a normal S1 and S2. No gallops, murmurs, or rubs. Normal PMI, no JVD. No pulse deficits. Respiratory: Lungs have equal breath sounds bilaterally, clear to auscultation and percussion. No rales, rhonchi or wheezes noted. No increased work of breathing, no retractions or nasal flaring. Abdomen/GI: Soft, non-tender, with normal bowel sounds. No distension or tympany. No guarding or rebound. No evidence of tenderness throughout. Back: No spinal tenderness. No costovertebral tenderness. Skin: Warm, dry with normal turgor. Normal color with no rashes, no lesions, and no evidence of cellulitis. MS/ Extremity: Pulses equal, no cyanosis. Neurovascular intact. Full, normal range of motion. Neuro: Awake and alert, GCS 15, oriented to person, place, time, and situation. Cranial nerves II-XII grossly intact. Motor strength 5/5 in all extremities. Sensory grossly intact. Psych: Awake, alert, with orientation to person, place and time. Behavior, mood, and affect are within normal limits Vital Signs: 04:47 BP 110 / 98; Pulse 108; Resp 20; Temp 98.7; Pulse Ox 100% ; Weight 81.65 kg; Height 5 bp ft. 8 in. ; 05:00 BP 110 / 98; Pulse 118; Resp 16 S; Pulse Ox 100% on R/A; jw7 06:15 BP 108 / 66; Pulse 72; Resp 17 S; Pulse Ox 99% on R/A; jw7 07:25 BP 103 / 78; Pulse 80; Resp 16 S; Pulse Ox 100% on R/A; aa5 04:47 Body Mass Index 27.37 (81.65 kg, 172.72 cm) bp MDM: 04:58 Patient medically screened. sp4 06:31 Differential diagnosis: Nonspecific abd pain, gastritis, pancreatitis, appendicitis, sp4 diverticulitis, viral gastroenteritis, gastroenteritis. Data reviewed: vital signs, nurses notes, old medical records, lab test result(s), radiologic studies, plain films. ED course: Chest X ray - COMPARISON: None. FINDINGS: Single frontal radiograph view of the chest. Cardiomediastinal silhouette: Normal size and contour. Lungs: No consolidation, pneumothorax, or pleural effusion. Bones: No acute osseous abnormality. Upper abdomen: No abnormality identified. IMPRESSION: 1. No acute pulmonary process identified. 06:57 Consideration of Admission/Observation Escalation of care including sp4 admission/observation considered. ED course: Patient is feeling better. Will prescribe cough suppressant, Phenergan as needed for nausea, and will advise clear liquid diet for the next 24 hours. Patient will be advised to discontinue marijuana use.. . 08/09 04:51 Order name: CBC with Diff; Complete Time: 06:29 sb4 08/09 04:51 Order name: CMP; Complete Time: 06:29 sb4 08/09 04:51 Order name: Lipase; Complete Time: 06:29 sb4 08/09 04:51 Order name: Test, Urine; Complete Time: 06:57 sb4 08/09 04:51 Order name: Urinalysis w/ reflexes; Complete Time: 06:57 sb4 08/09 04:52 Order name: UDS; Complete Time: 06:57 sb4 08/09 04:52 Order name: SARS RAPID; Complete Time: 06:37 sb4 08/09 04:52 Order name: Flu sb4 08/09 04:52 Order name: Chest Single View XRAY sb4 08/09 04:52 Order name: IV Saline Lock; Complete Time: 05:40 sb4 08/09 04:52 Order name: Labs collected and sent; Complete Time: 05:40 sb4 Administered Medications: 05:46 Drug: NS 0.9% IV 1000 ml IV at 1 bolus Per protocol; 1000 mL bolus Route: IV; Rate: 1 km8 bolus; Site: left antecubital; 06:47 Follow up: Response: No adverse reaction; IV Status: Infusion continued; IV Intake: jw7 300ml 05:46 Drug: Famotidine IVP 20 mg IVP once; dilute with 10 mL 0.9% NaCl; give over 2 minutes km8 Route: IVP; Site: left antecubital; 06:47 Follow up: Response: No adverse reaction; Marked relief of symptoms jw7 05:46 Drug: Ondansetron IVP 4 mg IVP once; over 2 minutes Route: IVP; Site: left antecubital; km8 06:47 Follow up: Response: No adverse reaction; Marked relief of symptoms jw7 06:11 Not Given (Other Intervention Used): [id number] mg IM once jw7 06:12 Drug: Promethazine PO 25 mg PO once Route: PO; jw7 06:48 Follow up: Response: No adverse reaction; Marked relief of symptoms jw7 06:47 Drug: Tylenol-Codeine #3 PO (120 mg - 12 mg) 10 ml PO once; RASS on ADMIN: Combtv4, jw7 Very Agttd3, Agttd2, Rstlss1, AlertClm0, Drwsy-1, Lt Sdtn-2, Mod Sdtn-3, Dp Sdtn-4, UnArsble-5 Route: PO; 07:25 Follow up: Response: No adverse reaction aa5 06:47 Drug: Dextromethorphan-Guaifenesin PO Liquid 10 mg-100 mg/5 mL 10 ml PO once Route: PO; jw7 07:25 Follow up: Response: No adverse reaction aa5 Disposition Summary: 08/09/23 06:59 Discharge Ordered Notes: Location: Home sp4 Problem: new sp4 Symptoms: have improved sp4 Condition: Stable sp4 Diagnosis - Vomiting sp4 - Intractable vomiting, chest congestion, acute bronchitis sp4 Followup: sp4 - With: Private Physician - When: 5 - 6 days - Reason: Recheck today's complaints Discharge Instructions: - Discharge Summary Sheet sp4 - Acute Bronchitis, Adult, Eltk-ya-Xfoi sp4 Forms: - Work release form aa5 - Patient Portal Instructions sp4 Prescriptions: - dextromethorphan HBr 10 mg/5 mL Oral liquid - take 10 milliliter ORAL route every 6 hours as needed for cough; 120 sp4 milliliter; Refills: 0, Product Selection Permitted - Zithromax Z-Medhat 250 mg Oral Tablet - take 1 tablet ORAL route as directed for 5 days Day 1 - take two (2) tablets sp4 one time. Day 2, 3, 4 , 5 take one (1) tablet once daily.; 6 tablet; Refills: 0, Product Selection Permitted - promethazine 25 mg Oral tablet - take 1 tablet ORAL route every 6 hours As needed; 30 tablet; Refills: 0, sp4 Product Selection Permitted Signatures: Dispatcher [employer] Vini Campbell RN RN bp Waits, Jodi, RN RN jw7 Brown, Altagracia, PA-C Shen Pérez MD MD sp4 Carolina Crowley RN RN km8 Rosalia Mora RN aa5 Corrections: (The following items were deleted from the chart) 06:49 04:52 Abdomen Pelvis W Con+CT.RAD.BRZ ordered. EDMS EDMS
--- NOTE | 2023-08-09 07:00 | ER ---
Nurse's Notes [facility] Name: Kimber Layton Age: 22 yrs Sex: Female : 2000 Arrival Date: 08/09/2023 Time: 04:37 Bed 13 Private MD: Diagnosis: Vomiting;Intractable vomiting, chest congestion, acute bronchitis Presentation: 08/09 04:47 Chief complaint: Patient states: COUGH, CONGESTION AND VOMITING SINCE SUNDAY. bp Coronavirus screen: cough unrelated to allergies, vomiting. Ebola Screen: No symptoms or risks identified at this time. Initial Sepsis Screen: Does the patient meet any 2 criteria? No. Patient's initial sepsis screen is negative. Does the patient have a suspected source of infection? No. Patient's initial sepsis screen is negative. Risk Assessment: Do you want to hurt yourself or someone else? Patient reports no desire to harm self or others. Onset of symptoms is unknown. 04:47 Method Of Arrival: Ambulatory bp 04:47 Acuity: REYNA 3 bp Triage Assessment: 04:49 General: Appears distressed, uncomfortable, Behavior is cooperative, appropriate for bp age. Pain: Denies pain. GI: Reports nausea, vomiting. Historical: - Allergies: 04:49 Amoxicillin; bp 04:49 Motrin; bp 04:49 PENICILLINS; bp - PMHx: 04:49 Asthma; GERD; bp - PSHx: 04:49 left knee; bp - Immunization history:: Adult Immunizations up to date. - Social history:: Smoking status: unknown. - Family history:: not pertinent. Screenin:06 [facility] ED Fall Risk Assessment (Adult) History of falling in the last 3 months, jw7 including since admission No falls in past 3 months (0 pts) Score/Fall Risk Level 0 - 2 = Low Risk Oriented to surroundings, Maintained a safe environment. Abuse screen: Denies threats or abuse. Denies injuries from another. Nutritional screening: No deficits noted. Tuberculosis screening: No symptoms or risk factors identified. Assessment: 05:20 General: see triage assessment. jw7 05:30 Reassessment: Patient appears in no apparent distress at this time. No changes from jw7 previously documented assessment. Patient and/or family updated on plan of care and expected duration. Pain level reassessed. Patient is alert, oriented x 3, equal unlabored respirations, skin warm/dry/pink. 06:58 Reassessment: Patient appears in no apparent distress at this time. No changes from [facility] previously documented assessment. Patient and/or family updated on plan of care and expected duration. Pain level reassessed. Patient is alert, oriented x 3, equal unlabored respirations, skin warm/dry/pink. GI: Abdomen is round non-distended. 07:29 Reassessment: Patient is alert, oriented x 3, equal unlabored respirations, skin aa5 warm/dry/pink. Vital Signs: 04:47 BP 110 / 98; Pulse 108; Resp 20; Temp 98.7; Pulse Ox 100% ; Weight 81.65 kg; Height 5 bp ft. 8 in. ; 05:00 BP 110 / 98; Pulse 118; Resp 16 S; Pulse Ox 100% on R/A; jw7 06:15 BP 108 / 66; Pulse 72; Resp 17 S; Pulse Ox 99% on R/A; jw7 07:25 BP 103 / 78; Pulse 80; Resp 16 S; Pulse Ox 100% on R/A; aa5 04:47 Body Mass Index 27.37 (81.65 kg, 172.72 cm) bp ED Course: 04:41 Patient arrived in ED. gm2 04:48 Triage completed. bp 04:49 Arm band placed on. bp 04:52 Yue Dominguez, RN is Primary Nurse. jw7 04:54 Radiology exam delayed due to lab results not completed at this time. (BUN/Creatinine) eh4 test not completed at this time. IV insertion attempt and/or patient not having appropriate IV at this time. 04:58 Shen Cao MD is Attending Physician. sp4 05:06 Patient has correct armband on for positive identification. Bed in low position. Call [facility] light in reach. 05:07 Chest Single View XRAY In Process Unspecified. EDMS 05:10 Initial lab(s) drawn, by me, sent to lab. Inserted saline lock: 22 gauge in left [facility] antecubital area, using aseptic technique. Blood collected. 06:12 UDS Sent. jw7 06:12 SARS RAPID Sent. jw7 06:12 Flu Sent. jw7 06:12 Test, Urine Sent. jw7 06:12 Urinalysis w/ reflexes Sent. jw7 07:29 No provider procedures requiring assistance completed. IV discontinued, intact, aa5 bleeding controlled, No redness/swelling at site. Pressure dressing applied. Administered Medications: 05:46 Drug: NS 0.9% IV 1000 ml IV at 1 bolus Per protocol; 1000 mL bolus Route: IV; Rate: 1 km8 bolus; Site: left antecubital; 06:47 Follow up: Response: No adverse reaction; IV Status: Infusion continued; IV Intake: jw7 300ml 05:46 Drug: Famotidine IVP 20 mg IVP once; dilute with 10 mL 0.9% NaCl; give over 2 minutes km8 Route: IVP; Site: left antecubital; 06:47 Follow up: Response: No adverse reaction; Marked relief of symptoms jw7 05:46 Drug: Ondansetron IVP 4 mg IVP once; over 2 minutes Route: IVP; Site: left antecubital; km8 06:47 Follow up: Response: No adverse reaction; Marked relief of symptoms jw7 06:11 Not Given (Other Intervention Used): [id number] mg IM once jw7 06:12 Drug: Promethazine PO 25 mg PO once Route: PO; jw7 06:48 Follow up: Response: No adverse reaction; Marked relief of symptoms jw7 06:47 Drug: Tylenol-Codeine #3 PO (120 mg - 12 mg) 10 ml PO once; RASS on ADMIN: Combtv4, jw7 Very Agttd3, Agttd2, Rstlss1, AlertClm0, Drwsy-1, Lt Sdtn-2, Mod Sdtn-3, Dp Sdtn-4, UnArsble-5 Route: PO; 07:25 Follow up: Response: No adverse reaction aa5 06:47 Drug: Dextromethorphan-Guaifenesin PO Liquid 10 mg-100 mg/5 mL 10 ml PO once Route: PO; jw7 07:25 Follow up: Response: No adverse reaction aa5 Medication: 07:29 VIS not applicable for this client. aa5 Intake: 06:47 IV: 300ml; Total: 300ml. jw7 Outcome: 06:59 Discharge ordered by . sp4 07:29 Discharged to home ambulatory, aa5 07:29 Condition: stable 07:29 Discharge instructions given to patient, Instructed on discharge instructions, follow up and referral plans. medication usage, Demonstrated understanding of instructions, follow-up care, medications, Prescriptions given X 3, 07:30 Patient left the ED. aa5 Signatures: Dispatcher [employer] EDRosalia Davis, RN RN aa5 Vini Foley RN RN Yue Gray, AURY RN jw7 Genny Gilliland 4 Shen Cao MD MD sp4 Leola Puentes 2 Carolina Crowley RN RN km8 Corrections: (The following items were deleted from the chart) 04:56 04:47 81.65 kg; Height 5 ft. 8 in.; BMI: 27.3; bp bp 07:36 07:36 Patient left the ED. aa5 aa5
[2023-08-09 07:45] VITALS: TEMP 98.7
[2023-08-09 08:01] VITALS: BP 108/66; O2SAT 99
--- NOTE | 2023-08-09 20:44 | RAD REPORT ---
EXAM DESCRIPTION: RAD - Chest Single View - 08/09/2023 5:05 am CLINICAL HISTORY: Cough;Congestion COMPARISON: None. FINDINGS: Single frontal radiograph view of the chest. Cardiomediastinal silhouette: Normal size and contour. Lungs: No consolidation, pneumothorax, or pleural effusion. Bones: No acute osseous abnormality. Upper abdomen: No abnormality identified. IMPRESSION: 1. No acute pulmonary process identified. Electronically signed by: Aniket Win DO 08/09/2023 05:15 AM HEALTHCARE FACILITY ADMINISTRATOR M Due to temporary technical issues with the PACS/Fluency reporting system, reports are being signed by the in house radiologists without review as a courtesy to insure prompt reporting. The interpreting radiologist is fully responsible for the content of the report.
== END 2023-08-09 07:36 | disposition home or self-care (01) ==
LOC: ER 04:37
DX: J20.9 Acute bronchitis, unspecified (principal); Z11.52 Encounter for screening for COVID-19
CPT/HCPCS: 36415; 71045; 80053; 80307; 81001; 81025; 83690; 85025; 87804; 87811; 96361; 96374; 96375; 99284; J2405; Q0169

== ENCOUNTER 2023-09-03 04:31 | Emergency (ER) | payer SELFPAY ==
--- OUTSIDE RECORDS SUMMARY | 2023-09-03 04:35 | XMS REPORT | Continuity of Care Document ---
Author Name Unknown Address [address] [facility] [address] [place] [address] [facility] thconnect Address [address] [facility] [place] [address] Care Team Providers Care Soil Chemist Name Role Phone PCP, PATIENT DOES NOT HAVE A Primary Care Physic rubén Unavailable ALFREDO COHEN Attending Clinician Unavailable Alfredo Godinez Attending Clinician [phone] Doctor Unassigned, [place] Attending Clinician U navailable NADINE ESCOBEDO Attending Clinician Unavailable Nadine Juarez Attending Clinician [phone] KATHI RODRÍGUEZ Attending Clinician Unavailab Kathi Benoit DO Attending Clinician [phone] PROVIDER, ED TEMP Attending Clinician UnavailALFREDO Justice Admitting Clinician Unavailable NADINE ESCOBEDO Admitting Clinician Unavailable Payers Payer Name Policy Type Policy Number Effective Date Expirati on Date Source Problems Condition Name Condition Details Condition Category Status Onset Date Resolution Date Last Treatment Date Treating Clinician Comments Source No known active problems No known active problems Disease [facility] Allergies, Adverse Reactions, Alerts Allergy Name Allergy Type Status Severity Reaction(s) Onset Date Inactive Date Treating Clinician Comments Source PENICILL INS Drug Class Active Unknown-Cmnt 2020-09 00:00: 00 [facility] Penicill ins Propensi ty to adverse reaction s Active Unknown - See comments 2020-09 00:00: 00 Childhood allergy-t old not to take by parents [facility] Penicill ins Propensi ty to adverse reaction s Active Unknown - See comments 2020-09 00:00: 00 Childhood allergy-t old not to take by parents [facility] NO KNOWN ALLERGIE S Drug Class Active [facility] Social History Social Habit Start Date Stop Date Quantity Comments Source Exposure to SARS-CoV-2 (event) 2022-09-08 00:00:00 2022-09-18 21:03:00 Not sure [facility] Sex Assigned At 2000 00:00:00 2000 00:00:00 [facility] Smoking Status Start Date Stop Date Source Tobacco smoking consumption unknown [facility] Medications Ordered Medication Name Filled Medication Name Start Date Stop Date Current Medication? Ordering Clinician Indication Dosage Frequency Signature (SIG) Comments Components Source doxycycline hyclate (Vibramycin ) capsule 100 mg 2021-09 05:45: 00 09-19 05:49 :00 No 100mg 100 mg, Oral, ONCE, 1 dose, On Sun09/18/22 at 2345, RADHA
Re ason for Anti-Infec tive: Documented Infection< br>Documen sandeep Infection Site: HEENT
D uration of Therapy: 7 days [facility] benzonatate (TESSALON PERLES) capsule 200 mg 2021-09 05:30: 00 09-19 04:47 :00 No 200mg 200 mg, Oral, ONCE, 1 dose, On Sun09/18/22 at 2330, [facility] predniSONE (DELTASONE) tablet 40 mg 2021-09 04:45: 00 09-19 04:46 :00 No 40mg 40 mg, Oral, ONCE, 1 dose, [facility]AN ([facility] 4 mg 2021-09 04:00: 00 09-19 03:25 :00 No 4mg 4 mg, Slow IV Push, ONCE, 1 dose, On Sun09/18/22 at 2200, [facility] NaCl 0.9% (NS) bolus infusion 1,000 mL 2021-09 04:00: 00 09-19 05:31 :00 No 1000mL at 999 mL/hr, 1,000 mL, IV Infusion, ONCE, 1 dose, On Sun09/18/22 at 2200, RADHA [facility] benzonatate 200 mg capsule 2021-09 00:00: 00 Yes [id number] 200mg Take 1 capsule by mouth 3 (three) times daily as needed for Cough. [facility] doxycycline hyclate 100 mg capsule 2021-09 00:00: 00 09-26 05:59 :00 No [id number] 100mg Take 1 capsule by mouth in the morning and 1 capsule in the evening. Do all this for 7 days. [facility] predniSONE 20 mg tablet 2021-09 00:00: 00 09-24 05:59 :00 No [id number] 40mg Take 2 tablets by mouth in the morning for 5 days. [facility] activated charcoal-so rbitoL (ACTIDOSE/S ORBITAL) 25 gram/120 mL suspension 25 g 10-04 19:00: 00 10-04 18:43 :00 No 25g 25 g, Oral, ONCE, 1 dose, On Sun10/04/21 at 1300, RADHA [facility] predniSONE 10 mg tablet 2020-09 00:00: 00 09-14 05:59 :00 No [id number] 50mg Take 5 tablets by mouth daily for 4 days. [facility] albuterol (PROVENTIL) 2.5 mg /3 mL (0.083 %) nebulizer solution 5 mg 2020-09 16:30: 00 09-08 15:33 :00 No 5mg 5 mg, Inhalation , ONCE, 1 dose, On Sun09/08/21 at 1030, RADHA [facility] predniSONE (DELTASONE) tablet 50 mg 2020-09 16:30: 00 09-08 15:41 :00 No 50mg 50 mg, Oral, ONCE, 1 dose, On Sun09/08/21 at 1030, RADHA [facility] ipratropium (ATROVENT) 0.02 % nebulizer solution 0.5 mg 2020-09 15:45: 00 09-08 14:47 :00 No .5mg 0.5 mg, Inhalation , ONCE, 1 dose, On Amelia 09/08/21 at 0945, RADHA [facility] albuterol (PROVENTIL) 2.5 mg /3 mL (0.083 %) nebulizer solution 5 mg 2020-09 15:45: 00 09-08 14:47 :00 No 5mg 5 mg, Inhalation , ONCE, 1 dose, On [place]elia 09/08/21 at 0945, RADHA [facility] ondansetron (ZOFRAN-ODT ) disintegrat ing tablet 4 mg 2020-09 15:30: 00 09-08 14:17 :00 No 4mg 4 mg, Oral, ONCE, 1 dose, On Amelia 09/08/21 at 0930, Routine [facility] ondansetron (ZOFRAN ODT) 4 mg disintegrat ing tablet 2020-09 00:00: 00 Yes [id number] 4mg Take 1 tablet by mouth every 8 (eight) hours as needed for Nausea and Vomiting (N/V). [facility] ondansetron (ZOFRAN ODT) 4 mg disintegrat ing tablet 2020-09 00:00: 00 Yes [id number] 4mg Take 1 tablet by mouth every 8 (eight) hours as needed for Nausea and Vomiting (N/V). [facility] ondansetron (ZOFRAN ODT) 4 mg disintegrat ing tablet 2020-09 00:00: 00 Yes [id number] 4mg Take 1 tablet by mouth every 8 (eight) hours as needed for Nausea and Vomiting (N/V). [facility] ondansetron (ZOFRAN ODT) 4 mg disintegrat ing tablet 2020-09 00:00: 00 Yes [id number] 4mg Take 1 tablet by mouth every 8 (eight) hours as needed for Nausea and Vomiting (N/V). [facility] Vital Signs Vital Name Observation Time Observation Value Comments S lucas Systolic blood pressure 2022-09-19 04:00:00 115 mm[Hg] [facility] Diastolic blood pressure 2022-09-19 04:00:00 60 mm[Hg] [facility] Heart rate 2022-09-19 04:00:00 66 /min [facility] Respiratory rate 2022-09-19 04:00:00 18 /min [facility] Oxygen saturation in Arterial blood by Pulse oximetry 2022-09-19 04:00:00 97 /min [facility] Body temperature 2022-09-19 03:06:00 37.39 [place] [facility] Body height 2022-09-19 03:06:00 172.7 cm [facility] Body weight 2022-09-19 03:06:00 81.647 kg [facility] BMI 2022-09-19 03:06:00 27.37 kg/m2 [facility] Body height 2021-10-04 16:49:00 165.1 cm [facility] Body weight 2021-10-04 16:49:00 79.379 kg [facility] BMI 2021-10-04 16:49:00 29.12 kg/m2 [facility] Oxygen saturation in Arterial blood by Pulse oximetry 2021-10-04 16:49:00 100 /min [facility] Systolic blood pressure 2021-10-04 16:49:00 133 mm[Hg] [facility] Diastolic blood pressure 2021-10-04 16:49:00 96 mm[Hg] [facility] Heart rate 2021-10-04 16:49:00 112 /min [facility] Respiratory rate 2021-10-04 16:49:00 22 /min [facility] Systolic blood pressure 2021-09-08 16:36:51 122 mm[Hg] [facility] Diastolic blood pressure 2021-09-08 16:36:51 60 mm[Hg] [facility] Heart rate 2021-09-08 16:36:51 94 /min [facility] Body temperature 2021-09-08 16:36:51 36.78 [facility] [facility] Respiratory rate 2021-09-08 16:36:51 18 /min [facility] Oxygen saturation in Arterial blood by Pulse oximetry 2021-09-08 16:36:51 99 /min [place] [facility] Body height 2021-09-08 13:52:00 172.7 cm [facility] Body weight 2021-09-08 13:52:00 88.451 kg [facility] BMI 2021-09-08 13:52:00 29.65 kg/m2 [facility] Height 2021-07-27 12:41:17 [facility] Weight Measured 2021-07-27 12:41:[address] [facility] Body Temperature 2021-07-27 12:41:[address] [facility] Heart Rate 2021-07-27 12:41:17 [facility] Respiratory Rate 2021-07-27 12:41:[address] [facility] O2 % BldC Oximetry 2021-07-27 12:41:[address] [facility] BP Systolic 2021-07-27 12:41:[address] [facility] BP Diastolic 2021-07-27 12:41:[address] [facility] BMI (Body Mass Index) 2021-07-27 12:41:[address] [facility] Procedures Procedure Date / Time Performed Performing Clinician Source XR CHEST 1 VW 2022-09-19 03:47:07 Alfredo Cohen [facility] URINALYSIS 2022-09-19 03:33:00 Alfredo Cohen [facility] POCT TEST 2022-09-19 03:33:00 Blanka Cohen [facility] TROPONIN I 2022-09-19 03:25:00 Cohen, [facility] COMP. METABOLIC PANEL ([id number]) 2022-09-19 03:25:00 Alfredo Cohen [facility] CBC WITH DIFF 2022-09-19 03:25:00 Alfredo Cohen [facility] RAPID INFLUENZA A/B 2022-09-19 03:25:00 Blanka Cohen [facility] N-TERMINAL PRO-BNP 2022-09-19 03:25:00 Renetta Cohen [facility] COVID-19 (ID NOW RAPID TESTING) 2022-09-19 03:25:00 Alfredo Cohen [facility] EXTERNAL PROVIDER RECORDS 2021-10-19 06:01:00 Doctor Unassigned, [place] [facility] CT HEAD WO CONTRAST 2021-10-04 18:04:08 Nadine Escobedo [facility] XR CHEST 1 VW 2021-10-04 18:03:00 [facility] URINE DRUG (IMMUNOASSAY) - COMPREHENSIVE DRUG SCREEN 2021-10-04 17:40:00 Nadine Escobedo [facility] CREATINE KINASE 2021-10-04 17:35:00 Nadine Escobedo [facility] LIPASE 2021-10-04 17:35:00 Nadine Escobedo [facility] TROPONIN I 2021-10-04 17:35:00 Nadine Escobedo [facility] COMP. METABOLIC PANEL ([id number]) 2021-10-04 17:35:00 Nadine Escobedo [facility] SALICYLATE 2021-10-04 17:35:00 Nadine Escobedo [facility] ETHANOL 2021-10-04 17:35:00 Nadine Escobedo [facility] CBC WITH DIFF 2021-10-04 17:35:00 [facility] URINALYSIS 2021-10-04 17:35:00 Nadine Escobedo [facility] COVID-19 (ID NOW RAPID TESTING) 2021-10-04 17:35:00 Nadine Escobedo [facility] POCT TEST 2021-10-04 17:34:00 Nadine Escobedo [facility] NOTICE OF PRIVACY PRACTICES 2021-09-08 13:48:15 Doctor Unassigned, [place] [facility] CONSENT/REFUSAL FOR DIAGNOSIS AND TREATMENT 2021-09-08 13:48:03 Doctor Unassigned, [place] [facility] Encounters Start Date/Time End Date/Time Encounter Type Admission Type Attending [facility] Care Department Encounter ID Source 2022-09-18 21:01:00 2022-09-18 23:53:00 Emergency X ALFREDO COHEN [facility] ERT [id number] [facility] 2022-09-18 21:01:00 2022-09-18 23:53:00 Emergency Alfredo Cohen [facility] [id number] [id number] [id number] [facility] 2021-10-19 00:00:00 2021-10-19 00:00:00 Orders Only Doctor Unassigned, [place] [facility] [id number] 350.1.13.10 [id number] [id number] [facility] 2021-10-04 10:52:00 2021-10-04 13:41:00 Emergency X NADINE ESCOBEDO [facility] ERT [id number] [facility] 2021-10-04 10:52:00 2021-10-04 13:41:00 Emergency Nadine Escobedo [facility] [id number] [id number] [id number] [facility] 2021-09-08 07:53:00 2021-09-08 10:38:00 Emergency KATHI CYR [facility] ERT [id number] [facility] 2021-09-08 07:53:00 2021-09-08 10:38:00 Emergency Kathi Rodríguez [facility] [id number] [id number] [id number] [facility] 2019-10-14 13:42:00 2019-10-14 16:23:00 Departed Emergency [id number]. [id number] 1.2 [facility] [id number] [facility] Results Test Description Test Time Test Comments Results Result Co mments Source [facility] [id number] 04:00:28* Test Item Value Reference Range Interpretation Comme nts NT-proBNP (test code = 3995380590) 31 pg/mL See_Comment [Automated message] The system which generated this result transmitted reference range: <=125. The reference range was not used to interpret this result as normal/abnormal. HEMANT (test code = HEMANT) Biotin has been reported to cause a negative bias, interpret results relative to patient's use of biotin. Lab Interpretation (test code = 74747-6) [facility] MET[facility]OLIC PANEL ([id number])2022-09-19 03:52:25* Test Item Value Reference Range Interpretation Comme nts NA (test code = 2304268754) 138 mmol/L 135-145 K (test code = 3915190607) 4.0 mmol/L 3.5-5.0 CL (test code = 7292534464) 105 mmol/L 98-108 CO2 TOTAL (test code = 8629496202) 24 mmol/L 23-31 AGAP (test code = 4867826229) 2-16 BUN (test code = 4324623280) 18 mg/dL 7-23 GLUCOSE (test code = 2639653074) 127 mg/dL 70-110 H CREATININE (test code = 5239864582) 0.81 mg/dL 0.50-1.04 TOTAL BILI (test code = 5409222602) 0.3 mg/dL 0.1-1.1 CALCIUM (test code = 2298348962) 8.8 mg/dL 8.6-10.6 T PROTEIN (test code = 1005890956) 7.1 g/dL 6.3-8.2 ALBUMIN (test code = 4602695060) 4.4 g/dL 3.5-5.0 ALK PHOS (test code = 3392589885) 52 U/L 34-122 ALTv (test code = 1742-6) 25 U/L 5-35 AST(SGOT) (test code = 0008653732) 27 U/L 13-40 eGFR (test code = 9426540059) mL/min/1.73m2 HEMANT (test code = HEMANT) Association of [...] or abnormalities in imaging tests). Lab Interpretation (test code = 20318-3) Abnormal [facility] WITH [id number] 03:38:46* Test Item Value Reference Range Interpretation Comme nts WBC (test code = 6690-2) See_Comment [Automated CamGSM] The system which generated this result transmitted reference range: 4.30 - 11.10 10*3/?L. The reference range was not used to interpret this result as normal/abnormal. RBC (test code = 789-8) See_Comment [Automated messa ge] The system which generated this result transmitted reference range: 3.93 - 5.25 10*6/?L. The reference range was not used to interpret this result as normal/abnormal. HGB (test code = 718-7) 12.8 g/dL 11.6-15.0 HCT (test code = 4544-3) 37.9 % 35.7-45.2 MCV (test code = 787-2) 85.4 fL 80.6-95.5 MCH (test code = 785-6) 28.8 pg 25.9-32.8 MCHC (test code = 786-4) 33.8 g/dL 31.6-35.1 RDW-SD (test code = 76752-3) 37.8 fL 39.0-49.9 L RDW-CV (test code = 788-0) 12.3 % 12.0-15.5 PLT (test code = 777-3) See_Comment L [Automated messa ge] The system which generated this result transmitted reference range: 166 - 358 10*3/?L. The reference range was not used to interpret this result as normal/abnormal. MPV (test code = 21533-0) 12.8 fL 9.5-12.9 NRBC/100 WBC (test code = 9204392301) See_Comment [Automated [employer] ssage] The system which generated this result transmitted reference range: 0.0 - 10.0 /100 WBCs. The reference range was not used to interpret this result as normal/abnormal. NRBC x10^3 (test code = 3936005344) See_Comment [Automated messa ge] The system which generated this result transmitted reference range: 10*3/?L. The reference range was not used to interpret this result as normal/abnormal. GRAN MAT (NEUT) % (test code = 770-8) 69.0 % IMM GRAN % (test code = 5030446401) 0.30 % LYMPH % (test code = 736-9) 25.3 % MONO % (test code = 5905-5) 4.6 % EOS % (test code = 713-8) 0.6 % BASO % (test code = 706-2) 0.2 % GRAN MAT x10^3(ANC) (test code = 9704185912) 7.47 10*3/uL 1.88-7.09 H IMM GRAN x10^3 (test code = 6692450275) 0.03 10*3/uL 0.00-0.06 LYMPH x10^3 (test code = 731-0) 2.74 10*3/uL 1.32-3.29 MONO x10^3 (test code = 742-7) 0.50 10*3/uL 0.33-0.92 EOS x10^3 (test code = 711-2) 0.07 10*3/uL 0.03-0.39 BASO x10^3 (test code = 704-7) 0.01-0.07 Lab Interpretation (test code = 98729-7) [facility] [id number] 03:33:00* Test Item Value Reference Range Interpretation Comme nts POCT PREG (test code = 1605) negative Lab Interpretation (test cod e = 13055-5) [facility] [id number] 18:58:19* Test Item Value Reference Range Interpretation Comments TROPONIN I (test code = 2029375582) 0.004 ng/mL See_Comment [Automated message] The system which generated this result transmitted reference range: <=0.034. The reference range was not used to interpret this result as normal/abnormal. HEMANT (test code = HEMANT) Reference (Normal) [...] to patient's use of biotin. Lab Interpretation (test code = 46300-3) [facility]2022-01-11 18:52:56* Test Item Value Reference Range Interpretation Comme nts ALCOHOL (test code = 4676559128) <10 mg/dL HEMANT (test code = HEMANT) <10 Tamrgbip46-878 Toxic>100 Depression of [employer]>400 Fatalities Reported [facility]2022-[facility]-11 18:51:50* Test Item Value Reference Range Interpretation Comme nts SALICYLATE (test code = 4754284007) <10 mg/L HEMANT (test code = HEMANT) Therapeutic Range: ? Analgesic and Antipyretic Use ? 20-100 mg/L ? ? Anti-Inflammatory Use ? 100-250 mg/L Toxic Range: ? Greater than 300 mg/L [facility]ET[facility]INOPHEN2022-01-11 18:51:35* Test Item Value Reference Range Interpretation Comme nts ACETAMINOP (test code = 9873881920) <10.0 10.0-30.0 L HEMANT (test code = HEMANT) Toxic: Greater andrés n 200 ug/mL @ 4 hour post ingestion or greater than 50 ug/mL @ 12 hour post ingestion Lab Interpretation (test code = 84345-0) Abnormal [facility]. METABOLIC PANEL (52561)2021-10-04 18:43:08* Test Item Value Reference Range Interpretation Comme nts NA (test code = 0146519364) 138 mmol/L 135-145 K (test code = 9704221809) 4.5 mmol/L 3.5-5.0 CL (test code = 4733159399) 106 mmol/L 98-108 CO2 TOTAL (test code = 0813517866) 25 mmol/L 23-31 AGAP (test code = 9874054518) 2-16 BUN (test code = 5420030026) 14 mg/dL 7-23 GLUCOSE (test code = 7910157833) 110 mg/dL 70-110 CREATININE (test code = 5604916150) 0.81 mg/dL 0.50-1.04 TOTAL BILI (test code = 1192518968) 0.7 mg/dL 0.1-1.1 CALCIUM (test code = 1997452496) 9.4 mg/dL 8.6-10.6 T PROTEIN (test code = 0901351821) 8.0 g/dL 6.3-8.2 ALBUMIN (test code = 4710813976) 4.9 g/dL 3.5-5.0 ALK PHOS (test code = 6644390378) 55 U/L 34-122 ALTv (test code = 1742-6) 19 U/L 5-35 AST(SGOT) (test code = 9499462535) 32 U/L 13-40 eGFR (test code = 1462302351) mL/min/1.73m2 HEMANT (test code = HEMANT) Association of [...] or urine or abnormalities in imaging tests). [facility] 18:42:48* Test Item Value Reference Range Interpretation Comme nts LIPASE (test code = 0827465672) 79 U/L 0-220 Lab Interpretation (test cod e = 13973-8) [facility] ClinicCREATINE [id number] 18:42:28* Test Item Value Reference Range Interpretation Comme nts CK (test code = 1435046520) 60 U/L 33-194 Lab Interpretation (test cod e = 40057-2) [facility] ClinicCBC WITH [id number] 18:29:45* Test Item Value Reference Range Interpretation Comme nts WBC (test code = 6690-2) See_Comment [Automated Carsabia ge] The system which generated this result transmitted reference range: 4.30 - 11.10 10*3/?L. The reference range was not used to interpret this result as normal/abnormal. RBC (test code = 789-8) See_Comment [Automated Carsabia ge] The system which generated this result transmitted reference range: 3.93 - 5.25 10*6/?L. The reference range was not used to interpret this result as normal/abnormal. HGB (test code = 718-7) 14.2 g/dL 11.6-15.0 HCT (test code = 4544-3) 42.4 % 35.7-45.2 MCV (test code = 787-2) 85.7 fL 80.6-95.5 MCH (test code = 785-6) 28.7 pg 25.9-32.8 MCHC (test code = 786-4) 33.5 g/dL 31.6-35.1 RDW-SD (test code = 71353-1) 39.6 fL 39.0-49.9 RDW-CV (test code = 788-0) 12.8 % 12.0-15.5 PLT (test code = 777-3) See_Comment [Automated messa ge] The system which generated this result transmitted reference range: 166 - 358 10*3/?L. The reference range was not used to interpret this result as normal/abnormal. MPV (test code = 18230-9) 13.7 fL 9.5-12.9 H IPF % (test code = 5988905172) 13.2 % 1.3-7.7 H Platelet count measured by fluorescence method. NRBC/100 WBC (test code = 5853997139) See_Comment [Automated [employer] ssage] The system which generated this result transmitted reference range: 0.0 - 10.0 /100 WBCs. The reference range was not used to interpret this result as normal/abnormal. NRBC x10^3 (test code = 8244083530) <0.01 See_Comment [Automated messa ge] The system which generated this result transmitted reference range: 10*3/?L. The reference range was not used to interpret this result as normal/abnormal. GRAN MAT (NEUT) % (test code = 770-8) 79.5 % IMM GRAN % (test code = 5853653238) 0.40 % LYMPH % (test code = 736-9) 14.6 % MONO % (test code = 5905-5) 4.8 % EOS % (test code = 713-8) 0.4 % BASO % (test code = 706-2) 0.3 % GRAN MAT x10^3(ANC) (test code = 8263775368) 7.17 10*3/uL 1.88-7.09 H IMM GRAN x10^3 (test code = 4377724026) 0.04 10*3/uL 0.00-0.06 LYMPH x10^3 (test code = 731-0) 1.32 10*3/uL 1.32-3.29 MONO x10^3 (test code = 742-7) 0.43 10*3/uL 0.33-0.92 EOS x10^3 (test code = 711-2) 0.04 10*3/uL 0.03-0.39 BASO x10^3 (test code = 704-7) 0.03 10*3/uL 0.01-0.07 Lab Interpretation (test code = 66016-8) [facility] [id number] 17:34:00* Test Item Value Reference Range Interpretation Comme nts POCT PREG (test code = 1605) Negative On board controls acceptable with C Line (test code = 3574) Present POCT PREG LOT # (test code = 3575) HCG [id number] POCT PREG TEST DATE ( test code = 3576) 11/21/2022 Lab Interpretation (test cod e = 77799-7) [facility] Clinic[facility]inalysis2019-12-05 12:04:00* Test Item Value Reference Range Interpretation Comme nts Urinalysis (test code = BHCGUT) Negative Negative Method of sensit ivity- INDETERMINANT: results should be repeated after 48-72 hrs POSITIVE: results may be detected as early as 1 day after the first missed period A dilute urine specimen may not contain representativelevels of hCG.If is still suspected, a first morning urinespecimen OR a random blood specimen should be obtainedfrom the patient 48-72 hours later and re-tested. Urinalysis (test code = PREGUSG) 1.025 1.002-1.036 N [id number] 12:03:00* Test Item Value Reference Range Interpretation Comme nts Urinalysis (test code = UACLR) Light-Yellow Yellow Urinalysis (test code = UACLY) Clear Clear Urinalysis (test code = SPGR) 1.025 1.002-1.036 N Urinalysis (test code = ALETA) 6.5 5.0-9.0 N Urinalysis (test code = UALEU) 25 James/uL Negative Urinalysis (test code = UANIT) Negative Negative Urinalysis (test code = PROUADIP) Negative mg/dL Neg-Trace Urinalysis (test code = GLUCU) Normal mg/dL Negative Urinalysis (test code = KETU) Negative mg/dL Negative Urinalysis (test code = UAUROB) Normal mg/dL Less than 2 Urinalysis (test code = UABIL) Negative Negative Urinalysis (test code = UABLD) Negative Negative Urinalysis (test code = UARBC) 0-3 HPF 0-3 Urinalysis (test code = UAWBC) 0-3 HPF 0-3 Urinalysis (test code = UASQUAM) 0-3 HPF 0-3 Urinalysis (test code = UABAC) None Seen HPF None Seen Urine Source: Urine Clean Catch"
--- NOTE | 2023-09-03 05:03 | EDPHYS ---
Physician Documentation [facility] Name: Kimber Layton Age: 22 yrs Sex: Female : 2000 Arrival Date: 09/03/2023 Time: 04:31 Bed 18 Private MD: ED Physician Jadiel Swain HPI: 09/03 05:20 This 22 yrs old Female presents to ER via Ambulatory with complaints of Flu Symptoms, rt Fever, Cough, Congestion. 05:20 Patient's son tested positive for the flu about 4 days ago, she has had similar rt symptoms of cough, congestion, wheezing since then. Denies other acute complaints at this time, symptoms are mild in severity, no other aggravating alleviating factors.. Historical: - Allergies: 05:00 Amoxicillin; ha1 05:00 Motrin; ha1 05:00 PENICILLINS; ha1 - PMHx: 05:00 Asthma; GERD; ha1 - PSHx: 05:00 left knee; ha1 - Immunization history:: Adult Immunizations not up to date. - Social history:: Smoking status: Patient denies any tobacco usage or history of. - Family history:: not pertinent. ROS: 05:20 Constitutional: Negative for fever, chills, and weight loss, Cardiovascular: Negative rt for chest pain, palpitations, and edema, Abdomen/GI: Negative for abdominal pain, nausea, vomiting, diarrhea, and constipation, MS/Extremity: Negative for injury and deformity, Skin: Negative for injury, rash, and discoloration, Neuro: Negative for headache, weakness, numbness, tingling, and seizure, Psych: Negative for depression, anxiety, suicide ideation, homicidal ideation, and hallucinations, 05:20 Respiratory: Positive for cough, wheezing, Exam: 05:20 Constitutional: This is a well developed, well nourished patient who is awake, alert, rt and in no acute distress. Head/Face: Normocephalic, atraumatic. Chest/axilla: Normal chest wall appearance and motion. Nontender with no deformity. No lesions are appreciated. Cardiovascular: Regular rate and rhythm with a normal S1 and S2. No gallops, murmurs, or rubs. Normal PMI, no JVD. No pulse deficits. Abdomen/GI: Soft, non-tender, with normal bowel sounds. No distension or tympany. No guarding or rebound. No evidence of tenderness throughout. Skin: Warm, dry with normal turgor. Normal color with no rashes, no lesions, and no evidence of cellulitis. MS/ Extremity: Pulses equal, no cyanosis. Neurovascular intact. Full, normal range of motion. Neuro: Awake and alert, GCS 15, oriented to person, place, time, and situation. Cranial nerves II-XII grossly intact. Motor strength 5/5 in all extremities. Sensory grossly intact. Cerebellar exam normal. Normal gait. Psych: Awake, alert, with orientation to person, place and time. Behavior, mood, and affect are within normal limits. 05:20 Respiratory: Faint wheezes heard on all lung elkins, no respiratory distress, Vital Signs: 04:44 BP 115 / 80; Pulse 108; Resp 17 S; Temp 99(T); Pulse Ox 97% on R/A; Weight 83.91 kg; ha1 Height 5 ft. 7 in. ; 04:44 Body Mass Index 28.97 (83.91 kg, 170.18 cm) ha1 MDM: 04:51 Patient medically screened. rt 05:20 Differential diagnosis: Influenza, asthma exacerbation. Data reviewed: vital signs, rt nurses notes. Test considered but Not performed: Other Details Patient's son has influenza, patient most likely has influenza as well. Patient has no focal crackles, physical exam and symptoms are consistent with a pneumonia, x-ray not indicated.. Care significantly affected by the following chronic conditions: Asthma. Counseling: I had a detailed discussion with the patient and/or guardian regarding the historical points, exam findings, and any diagnostic results supporting the discharge/admit diagnosis, the need for outpatient follow up, to return to the emergency department if symptoms worsen or persist or if there are any questions or concerns that arise at home. Administered Medications: No medications were administered Disposition Summary: 09/03/23 05:03 Discharge Ordered Notes: Location: Home rt Problem: new rt Symptoms: are unchanged rt Condition: Stable rt Diagnosis - Influenza rt - Asthma exacerbation rt Followup: rt - With: Private Physician - When: 2 - 3 days - Reason: Discharge Instructions: - Discharge Summary Sheet rt - Asthma, Adult rt - Influenza, Adult rt Forms: - Work release form rt - Medication Reconciliation Form rt - Thank You Letter rt - Antibiotic Education rt - Prescription Opioid Use rt - Patient Portal Instructions rt - Leadership Thank You Letter rt Prescriptions: - Prednisone 20 mg Oral Tablet - take 2 tablets ORAL route once daily for 5 days; 10 tablet; Refills: 0, Product rt Selection Permitted Signatures: July Ramirez RN RN ha1 Jadiel Swain MD MD rt
--- NOTE | 2023-09-03 05:03 | ER ---
Nurse's Notes [facility] Name: Kimber Layton Age: 22 yrs Sex: Female : 2000 Arrival Date: 09/03/2023 Time: 04:31 Bed 18 Private MD: Diagnosis: Influenza;Asthma exacerbation Presentation: 09/03 04:44 Chief complaint: Patient states: I have been having fever, body aches, cough, and nasal ha1 congestion over a week and symptoms are not improving. Coronavirus screen: Vaccine status: Patient reports receiving the 2nd dose of the covid vaccine. Ebola Screen: No symptoms or risks identified at this time. Initial Sepsis Screen: Does the patient meet any 2 criteria? No. Patient's initial sepsis screen is negative. Does the patient have a suspected source of infection? No. Patient's initial sepsis screen is negative. Risk Assessment: Do you want to hurt yourself or someone else? Patient reports no desire to harm self or others. Onset of symptoms was August 28, 2023. 04:44 Method Of Arrival: Ambulatory ha1 04:44 Acuity: REYNA 4 ha1 Triage Assessment: 04:44 General: Appears uncomfortable, Behavior is calm, cooperative. Pain: Complains of pain ha1 in body aches Pain does not radiate. Pain currently is 7 out of 10 on a pain scale. Quality of pain is described as aching. Neuro: Level of Consciousness is awake, alert, obeys commands, Oriented to person, place, time, situation. Cardiovascular: Capillary refill < 3 seconds Patient's skin is warm and dry. Respiratory: Airway is patent Respiratory effort is even, unlabored, Respiratory pattern is regular, symmetrical, Breath sounds are clear bilaterally. Derm: Skin is pink, warm \T\ dry. Musculoskeletal: Circulation, motion, and sensation intact. Range of motion: intact in all extremities. Historical: - Allergies: 05:00 Amoxicillin; ha1 05:00 Motrin; ha1 05:00 PENICILLINS; ha1 - PMHx: 05:00 Asthma; GERD; ha1 - PSHx: 05:00 left knee; ha1 - Immunization history:: Adult Immunizations not up to date. - Social history:: Smoking status: Patient denies any tobacco usage or history of. - Family history:: not pertinent. Screenin:[facility] ED Fall Risk Assessment (Adult) History of falling in the last 3 months, ha1 including since admission No falls in past 3 months (0 pts) Confusion or Disorientation No (0 pts) Intoxicated or Sedated No (0 pts) Impaired Gait No (0 pts) Mobility Assist Device Used No (0 pt) Altered Elimination No (0 pt) Score/Fall Risk Level 0 - 2 = Low Risk Oriented to surroundings, Maintained a safe environment, Hourly rounding (assess needs \T\ fall precautionary measures) done. Abuse screen: Denies threats or abuse. Denies injuries from another. Nutritional screening: No deficits noted. Tuberculosis screening: No symptoms or risk factors identified. Assessment: 05:04 Cardiovascular: Capillary refill < 3 seconds Patient's skin is warm and dry. tm6 Respiratory: Reports cough that is productive, Airway is patent Respiratory effort is even, unlabored, Respiratory pattern is regular, symmetrical. 05:04 GI: Abdomen is flat, non-distended. : No signs and/or symptoms were reported tm6 regarding the genitourinary system. EENT: No signs and/or symptoms were reported regarding the EENT system. Derm: No signs and/or symptoms reported regarding the dermatologic system. Musculoskeletal: No signs and/or symptoms reported regarding the musculoskeletal system. Vital Signs: 04:44 BP 115 / 80; Pulse 108; Resp 17 S; Temp 99(T); Pulse Ox 97% on R/A; Weight 83.91 kg; ha1 Height 5 ft. 7 in. ; 04:44 Body Mass Index 28.97 (83.91 kg, 170.18 cm) ha1 ED Course: 04:38 Patient arrived in ED. gm2 04:38 Jadiel Swain MD is Attending Physician. rt 04:40 Patient has correct armband on for positive identification. Bed in low position. Call ha1 light in reach. Side rails up X 1. 04:40 Arm band placed on right wrist. pf1 04:42 Alice Jackson, AURY is Primary Nurse. tm6 05:00 Triage completed. ha1 05:04 Provided Education on: VS monitoring. Door closed. Noise minimized. tm6 05:04 No provider procedures requiring assistance completed. Patient maintains SpO2 tm6 saturation greater than 95% on room air. 05:13 Patient did not have IV access during this emergency room visit. pf1 Administered Medications: No medications were administered Medication: 05:04 VIS not applicable for this client. tm6 Outcome: 05:03 Discharge ordered by . rt 05:13 Discharged to home ambulatory, with family, pf1 05:13 Condition: stable 05:13 Discharge instructions given to patient, Instructed on discharge instructions, follow up and referral plans. Demonstrated understanding of instructions, follow-up care, medications, Prescriptions given X 1, 05:14 Patient left the ED. pf1 Signatures: July Ramirez RN RN ha1 Jadiel Swain MD MD rt Faye Bradley RN RN pf1 Leola Puentes gm2 Alice Jackson RN RN tm6
[2023-09-03 05:19] VITALS: BP 115/80; TEMP 99; O2SAT 97
== END 2023-09-03 05:14 | disposition home or self-care (01) ==
LOC: ER 04:31
DX: J11.1 Influenza due to unidentified influenza virus with other respiratory manifestations (principal); J45.901 Unspecified asthma with (acute) exacerbation; Z88.0 Allergy status to penicillin; Z88.1 Allergy status to other antibiotic agents; Z88.6 Allergy status to analgesic agent
CPT/HCPCS: 99284

== ENCOUNTER 2023-09-05 20:40 | Emergency (ER) | payer SELFPAY ==
--- OUTSIDE RECORDS SUMMARY | 2023-09-05 20:44 | XMS REPORT | Continuity of Care Document ---
Author Name Unknown Address [address] [facility] [address] [place] [address] [facility] thconnect Address [address] [facility]. [address] [place] [address] Care Team Providers Care Rod Puller Name Role Phone PCP, PATIENT DOES NOT HAVE A Primary Care Physic rubén Unavailable ALFREDO COHEN Attending Clinician Unavailable Alfredo Godinez Attending Clinician [phone] Doctor Unassigned, [place] Attending Clinician U navailable NADINE ESCOBEDO Attending Clinician Unavailable Nadine Juarez Attending Clinician [phone] KATHI RODRÍGUEZ Attending Clinician Unavailab Kathi Benoit DO Attending Clinician [phone] PROVIDER, ED TEMP Attending Clinician UnavailALFREDO Justice Admitting Clinician Unavailable NADINE ESCOBEDO Admitting Clinician Unavailable Payers Payer Name Policy Type Policy Number Effective Date Expirati on Date Source Problems Condition Name Condition Details Condition Category Status Onset Date Resolution Date Last Treatment Date Treating Clinician Comments Source No known active problems No known active problems Disease [facility] Allergies, Adverse Reactions, Alerts Allergy Name Allergy Type Status Severity Reaction(s) Onset Date Inactive Date Treating Clinician Comments Source PENICILL INS Drug Class Active Unknown-Cmnt 2020-09 00:00: 00 [facility] Penicill ins Propensi ty to adverse reaction s Active Unknown - See comments 2020-09 00:00: 00 Childhood allergy-t old not to take by parents [facility] Penicill ins Propensi ty to adverse reaction s Active Unknown - See comments 2020-09 00:00: 00 Childhood allergy-t old not to take by parents [facility] NO KNOWN ALLERGIE S Drug Class Active [facility] Social History Social Habit Start Date Stop Date Quantity Comments Source Exposure to SARS-CoV-2 (event) 2022-09-08 00:00:00 2022-09-18 21:03:00 Not sure [facility] Sex Assigned At 2000 00:00:00 2000 00:00:00 [facility] Smoking Status Start Date Stop Date Source Tobacco smoking consumption unknown [facility] Medications Ordered Medication Name Filled Medication Name [...] HEENT
D uration of Therapy: 7 days [facility] benzonatate (TESSALON PERLES) capsule 200 mg 2021-09 05:30: 00 09-19 04:47 :00 No 200mg 200 mg, Oral, ONCE, 1 dose, On Sun09/18/22 at 2330, [facility] predniSONE (DELTASONE) tablet 40 mg 2021-09 04:45: 00 09-19 04:46 :00 No 40mg 40 mg, Oral, ONCE, 1 dose, [facility]18/22 [facility] 2245[facility] 4 mg 2021-09 04:00: 00 09-19 03:25 :00 No 4mg 4 mg, Slow IV Push, ONCE, 1 dose, On Sun09/18/22 at 2200, [facility] NaCl 0.9% (NS) bolus infusion 1,000 mL 2021-09 04:00: 00 09-19 05:31 :00 No 1000mL at 999 mL/hr, 1,000 mL, IV Infusion, ONCE, 1 dose, On Sun09/18/22 at 2200, RADHA [facility] benzonatate 200 mg capsule 2021-09 00:00: 00 Yes [id number] 200mg Take 1 capsule by mouth 3 (three) times daily as needed for Cough. [facility] doxycycline hyclate 100 mg capsule 2021-09 00:00: 00 09-26 05:59 :00 No [id number] 100mg Take 1 capsule by mouth in the morning and 1 capsule in the evening. Do all this for 7 days. [facility] predniSONE 20 mg tablet 2021-09 00:00: 00 09-24 05:59 :00 No [id number] 40mg Take 2 tablets by mouth in the morning for 5 days. [facility] activated charcoal-so rbitoL (ACTIDOSE/S ORBITAL) 25 gram/120 mL suspension 25 g 10-04 19:00: 00 10-04 18:43 :00 No 25g 25 g, Oral, ONCE, 1 dose, On Sun10/04/21 at 1300, RADHA [facility] predniSONE 10 mg tablet 2020-09 00:00: 00 09-14 05:59 :00 No [id number] 50mg Take 5 tablets by mouth daily for 4 days. [facility] albuterol (PROVENTIL) 2.5 mg /3 mL (0.083 %) nebulizer solution 5 mg 2020-09 16:30: 00 09-08 15:33 :00 No 5mg 5 mg, Inhalation , ONCE, 1 dose, On Sun09/08/21 at 1030, RADHA [facility] predniSONE (DELTASONE) tablet 50 mg 2020-09 16:30: 00 09-08 15:41 :00 No 50mg 50 mg, Oral, ONCE, 1 dose, On Sun09/08/21 at 1030, RADHA [facility] ipratropium (ATROVENT) 0.02 % nebulizer solution 0.5 mg 2020-09 15:45: 00 09-08 14:47 :00 No .5mg 0.5 mg, Inhalation , ONCE, 1 dose, On Amelia 09/08/21 at 0945, RADHA [facility] albuterol (PROVENTIL) 2.5 mg /3 mL (0.083 %) nebulizer solution 5 mg 2020-09 15:45: 00 09-08 14:47 :00 No 5mg 5 mg, Inhalation , ONCE, 1 dose, On Amelia 09/08/21 at 0945, RADHA [facility] ondansetron (ZOFRAN-ODT ) disintegrat ing tablet 4 mg 2020-09 15:30: 00 09-08 14:17 :00 No 4mg 4 mg, Oral, ONCE, 1 dose, On Amelia 09/08/21 at 0930, Routine [facility] ondansetron (ZOFRAN ODT) 4 mg disintegrat ing tablet 2020-09 00:00: 00 Yes [id number] 4mg Take 1 tablet by mouth every 8 (eight) hours as needed for Nausea and Vomiting (N/V). [facility] ondansetron (ZOFRAN ODT) 4 mg disintegrat ing tablet 2020-09 00:00: 00 Yes [id number] 4mg Take 1 tablet by mouth every 8 (eight) hours as needed for Nausea and Vomiting (N/V). [facility] ondansetron (ZOFRAN ODT) 4 mg disintegrat ing tablet 2020-09 00:00: 00 Yes [id number] 4mg Take 1 tablet by mouth every 8 (eight) hours as needed for Nausea and Vomiting (N/V). [facility] ondansetron (ZOFRAN ODT) 4 mg disintegrat ing tablet 2020-09 00:00: 00 Yes [id number] 4mg Take 1 tablet by mouth every 8 (eight) hours as needed for Nausea and Vomiting (N/V). [facility] Vital Signs Vital Name Observation Time Observation Value Comments S lucas Systolic blood pressure 2022-09-19 04:00:00 115 mm[Hg] [facility] Diastolic blood pressure 2022-09-19 04:00:00 60 mm[Hg] [facility] Heart rate 2022-09-19 04:00:00 66 /min [facility] Respiratory rate 2022-09-19 04:00:00 18 /min [facility] Oxygen saturation in Arterial blood by Pulse oximetry 2022-09-19 04:00:00 97 /min [facility] Body temperature 2022-09-19 03:06:00 37.39 Tiara [facility] Body height 2022-09-19 03:06:00 172.7 cm [facility] Body weight 2022-09-19 03:06:00 81.647 kg [facility] BMI 2022-09-19 03:06:00 27.37 kg/m2 [facility] Body height 2021-10-04 16:49:00 165.1 cm [facility] Body weight 2021-10-04 16:49:00 79.379 kg [facility] BMI 2021-10-04 16:49:00 29.12 kg/m2 [facility] Oxygen saturation in Arterial blood by Pulse oximetry 2021-10-04 16:49:00 100 /min [facility] Systolic blood pressure 2021-10-04 16:49:00 133 mm[Hg] [facility] Diastolic blood pressure 2021-10-04 16:49:00 96 mm[Hg] [facility] Heart rate 2021-10-04 16:49:00 112 /min [facility] Respiratory rate 2021-10-04 16:49:00 22 /min [facility] Systolic blood pressure 2021-09-08 16:36:51 122 mm[Hg] [facility] Diastolic blood pressure 2021-09-08 16:36:51 60 mm[Hg] [facility] Heart rate 2021-09-08 16:36:51 94 /min [facility] Body temperature 2021-09-08 16:36:51 36.78 Tiara [facility] Respiratory rate 2021-09-08 16:36:51 18 /min [facility] Oxygen saturation in Arterial blood by Pulse oximetry 2021-09-08 16:36:51 99 /min [place] [facility] Body height 2021-09-08 13:52:00 172.7 cm [facility] Body weight 2021-09-08 13:52:00 88.451 kg [facility] BMI 2021-09-08 13:52:00 29.65 kg/m2 [facility] Height 2021-07-27 12:41:17 [facility] Weight Measured 2021-07-27 12:41:[address] [facility] Body Temperature 2021-07-27 12:41:[address] [facility] Heart Rate 2021-07-27 12:41:17 [facility] Respiratory Rate 2021-07-27 12:41:[address] [facility] O2 % BldC Oximetry 2021-07-27 12:41:[address] [facility] BP Systolic 2021-07-27 12:41:[address] [facility] BP Diastolic 2021-07-27 12:41:[address] [facility] BMI (Body Mass Index) 2021-07-27 12:41:[address] [facility] Procedures Procedure Date / Time Performed Performing Clinician Source XR CHEST 1 VW 2022-09-19 03:47:07 Alfredo Cohen [facility] URINALYSIS 2022-09-19 03:33:00 Alfredo Cohen [facility] POCT TEST 2022-09-19 03:33:00 Blanka Cohen [facility] TROPONIN I 2022-09-19 03:25:00 Cohen, [place] [facility] COMP. METABOLIC PANEL (74830) 2022-09-19 03:25:00 Alfredo Cohen [facility] CBC WITH DIFF 2022-09-19 03:25:00 Alfredo Cohen [facility] RAPID INFLUENZA A/B 2022-09-19 03:25:00 Blanka Cohen [facility] N-TERMINAL PRO-BNP 2022-09-19 03:25:00 Renetta Cohen [facility] COVID-19 (ID NOW RAPID TESTING) 2022-09-19 03:25:00 Alfredo Cohen [facility] EXTERNAL PROVIDER RECORDS 2021-10-19 06:01:00 Doctor Unassigned, [place] [facility] CT HEAD WO CONTRAST 2021-10-04 18:04:08 Nadine Escobedo [facility] XR CHEST 1 VW 2021-10-04 18:03:00 [facility] URINE DRUG (IMMUNOASSAY) - COMPREHENSIVE DRUG SCREEN 2021-10-04 17:40:00 Nadine Escobedo [facility] CREATINE KINASE 2021-10-04 17:35:00 Nadine Escobedo [facility] LIPASE 2021-10-04 17:35:00 Nadine Escobedo [facility] TROPONIN I 2021-10-04 17:35:00 Nadine Escobedo [facility] COMP. METABOLIC PANEL ([id number]) 2021-10-04 17:35:00 Nadine Escobedo [facility] SALICYLATE 2021-10-04 17:35:00 Nadine Escobedo [facility] ETHANOL 2021-10-04 17:35:00 Nadine Escobedo [facility] CBC WITH DIFF 2021-10-04 17:35:00 [facility] URINALYSIS 2021-10-04 17:35:00 Nadine Escobedo [facility] COVID-19 (ID NOW RAPID TESTING) 2021-10-04 17:35:00 Nadine Escobedo [facility] POCT TEST 2021-10-04 17:34:00 Nadine Escobedo [facility] NOTICE OF PRIVACY PRACTICES 2021-09-08 13:48:15 Doctor Unassigned, [place] [facility] CONSENT/REFUSAL FOR DIAGNOSIS AND TREATMENT 2021-09-08 13:48:03 Doctor Unassigned, [place] [facility] Encounters Start Date/Time End Date/Time Encounter Type Admission Type Attending [facility] Facility Care Department Encounter ID Source 2022-09-18 21:01:00 2022-09-18 23:53:00 Emergency X ALFREDO COHEN [facility] ERT [id number] [facility] 2022-09-18 21:01:00 2022-09-18 23:53:00 Emergency Alfredo Cohen [facility] [id number] [id number] [facility] 2021-10-19 00:00:00 2021-10-19 00:00:00 Orders Only Doctor Unassigned, [place] [facility] [id number] [id number] [id number] [id number] [facility] 2021-10-04 10:52:00 2021-10-04 13:41:00 Emergency X NADINE ESCOBEDO [facility] ERT [id number] [facility] 2021-10-04 10:52:00 2021-10-04 13:41:00 Emergency Nadine Escobedo [facility] [id number] [id number] [id number] [facility] 2021-09-08 07:53:00 2021-09-08 10:38:00 Emergency KATHI CYR [facility] ERT [id number] [facility] 2021-09-08 07:53:00 2021-09-08 10:38:00 Emergency Kathi Rodríguez [facility] [id number] [id number] [id number] [facility] 2019-10-14 13:42:00 2019-10-14 16:23:00 Departed Emergency [id number]. [id number] [id number] [facility] [id number] [facility] ([place] Results Test Description Test Time Test Comments Results Result Co mments Source [facility] [id number] 04:00:28* Test Item Value Reference Range Interpretation Comme nts NT-proBNP (test code = 0725708991) 31 pg/mL See_Comment [Automated message] The system which generated this result transmitted reference range: <=125. The reference range was not used to interpret this result as normal/abnormal. HEMANT (test code = HEMANT) Biotin has been reported to cause a negative bias, interpret results relative to patient's use of biotin. Lab Interpretation (test code = 70101-7) Normal [facility] MET[facility]OLIC PANEL (66545)2022-09-19 03:52:25* Test Item Value Reference Range Interpretation Comme nts NA (test code = 9313110814) 138 mmol/L 135-145 K (test code = 2874900235) 4.0 mmol/L 3.5-5.0 CL (test code = 0519321186) 105 mmol/L 98-108 CO2 TOTAL (test code = 8372634059) 24 mmol/L 23-31 AGAP (test code = 3688857425) 2-16 BUN (test code = 8226793500) 18 mg/dL 7-23 GLUCOSE (test code = 8730727427) 127 mg/dL 70-110 H CREATININE (test code = 6050647145) 0.81 mg/dL 0.50-1.04 TOTAL BILI (test code = 1584123688) 0.3 mg/dL 0.1-1.1 CALCIUM (test code = 4619163012) 8.8 mg/dL 8.6-10.6 T PROTEIN (test code = 8194278704) 7.1 g/dL 6.3-8.2 ALBUMIN (test code = 7419113595) 4.4 g/dL 3.5-5.0 ALK PHOS (test code = 6108810720) 52 U/L 34-122 ALTv (test code = 1742-6) 25 U/L 5-35 AST(SGOT) (test code = 2183132292) 27 U/L 13-40 eGFR (test code = 3687025714) mL/min/1.73m2 HEMANT (test code = HEMANT) Association [...] imaging tests). Lab Interpretation (test code = 00058-4) Abnormal [facility] WITH [id number] 03:38:46* Test Item Value Reference Range Interpretation Comme nts WBC (test code = 6690-2) See_Comment [Automated [employer]] The system which generated this result transmitted [...] 33.8 g/dL 31.6-35.1 RDW-SD (test code = 72044-1) 37.8 fL 39.0-49.9 L RDW-CV (test code = 788-0) 12.3 % 12.0-15.5 PLT (test code = 777-3) See_Comment L [Automated messa ge] The system which generated this result transmitted reference range: 166 - 358 10*3/?L. The reference range was not used to interpret this result as normal/abnormal. MPV (test code = 74049-8) 12.8 fL 9.5-12.9 NRBC/100 WBC (test code = 1338622419) See_Comment [Automated [employer] ssage] The system which generated this result transmitted reference range: 0.0 - 10.0 /100 WBCs. The reference range was not used to interpret this result as normal/abnormal. NRBC x10^3 (test code = 4038141022) See_Comment [Automated messa ge] The system which generated this result transmitted reference range: 10*3/?L. The reference range was not used to interpret this result as normal/abnormal. GRAN MAT (NEUT) % (test code = 770-8) 69.0 % IMM GRAN % (test code = 2750747748) 0.30 % LYMPH % (test code = 736-9) 25.3 % MONO % (test code = 5905-5) 4.6 % EOS % (test code = 713-8) 0.6 % BASO % (test code = 706-2) 0.2 % GRAN MAT x10^3(ANC) (test code = 8558347406) 7.47 10*3/uL 1.88-7.09 H IMM GRAN x10^3 (test code = 2017300936) 0.03 10*3/uL 0.00-0.06 LYMPH x10^3 (test code = 731-0) 2.74 10*3/uL 1.32-3.29 MONO x10^3 (test code = 742-7) 0.50 10*3/uL 0.33-0.92 EOS x10^3 (test code = 711-2) 0.07 10*3/uL 0.03-0.39 BASO x10^3 (test code = 704-7) 0.01-0.07 Lab Interpretation (test code = 59493-1) Abnormal [facility] [id number] 03:33:00* Test Item Value Reference Range Interpretation Comme nts POCT PREG (test code = 1605) negative Lab Interpretation (test cod e = 78685-9) Normal [facility] [id number] 18:58:19* Test Item Value Reference Range Interpretation Comments TROPONIN I (test code = 4867215312) 0.004 ng/mL See_Comment [Automated message] The system [...] of biotin. Lab Interpretation (test code = 00742-9) Normal [facility]2022-01-11 18:52:56* Test Item Value Reference Range Interpretation Comme nts ALCOHOL (test code = 0961070615) <10 mg/dL HEMANT (test code = HEMANT) <10 [id number] Toxic>100 Depression of WELL HEAD PUMPER>400 Fatalities Reported [facility]2022-01-11 18:51:50* Test Item Value Reference Range Interpretation Comme nts SALICYLATE (test code = 7448524829) <10 mg/L HEMANT (test code = HEMANT) Therapeutic Range: ? Analgesic and Antipyretic Use ? 20-100 mg/L ? ? Anti-Inflammatory Use ? 100-250 mg/L Toxic Range: ? Greater than 300 mg/L [facility]ET[facility]OPHEN2022-01-11 18:51:35* Test Item Value Reference Range Interpretation Comme nts ACETAMINOP (test code = 2831027077) <10.0 10.0-30.0 L HEMANT (test code = HEMANT) Toxic: Greater andrés n 200 ug/mL @ 4 hour post ingestion or greater than 50 ug/mL @ 12 hour post ingestion Lab Interpretation (test code = 23384-3) Abnormal [facility]. METABOLIC PANEL (16705)2021-10-04 18:43:08* Test Item Value Reference Range Interpretation Comme nts NA (test code = 9016616135) 138 mmol/L 135-145 K (test code = 6069529136) 4.5 mmol/L 3.5-5.0 CL (test code = 1668951992) 106 mmol/L 98-108 CO2 TOTAL (test code = 3780622441) 25 mmol/L 23-31 AGAP (test code = 3914296407) 2-16 BUN (test code = 5239885490) 14 mg/dL 7-23 GLUCOSE (test code = 4808629784) 110 mg/dL 70-110 CREATININE (test code = 5915315739) 0.81 mg/dL 0.50-1.04 TOTAL BILI (test code = 8693778020) 0.7 mg/dL 0.1-1.1 CALCIUM (test code = 9994600487) 9.4 mg/dL 8.6-10.6 T PROTEIN (test code = 0108609653) 8.0 g/dL 6.3-8.2 ALBUMIN (test code = 0377728735) 4.9 g/dL 3.5-5.0 ALK PHOS (test code = 5063381125) 55 U/L 34-122 ALTv (test code = 1742-6) 19 U/L 5-35 AST(SGOT) (test code = 0527659913) 32 U/L 13-40 eGFR (test code = 1326533911) mL/min/1.73m2 HEMANT (test code = HEMANT) Association [...] in imaging tests). [facility] 18:42:48* Test Item Value Reference Range Interpretation Comme nts LIPASE (test code = 5634172239) 79 U/L 0-220 Lab Interpretation (test cod e = 83372-6) Normal [facility] [id number] 18:42:28* Test Item Value Reference Range Interpretation Comme nts CK (test code = 5415197089) 60 U/L 33-194 Lab Interpretation (test cod e = 90738-0) Normal [facility] WITH [id number] 18:29:45* Test Item Value Reference Range Interpretation Comme nts WBC (test code = 6690-2) See_Comment [Automated [employer] ge] The system which generated this result transmitted reference range: 4.30 - 11.10 10*3/?L. The reference range was not used to interpret this result as normal/abnormal. RBC (test code = 789-8) See_Comment [Automated Dangera ge] The system which generated this result [...] 33.5 g/dL 31.6-35.1 RDW-SD (test code = 29561-8) 39.6 fL 39.0-49.9 RDW-CV (test code = 788-0) 12.8 % 12.0-15.5 PLT (test code = 777-3) See_Comment [Automated messa ge] The system which generated this result transmitted reference range: 166 - 358 10*3/?L. The reference range was not used to interpret this result as normal/abnormal. MPV (test code = 19163-3) 13.7 fL 9.5-12.9 H IPF % (test code = 7595832935) 13.2 % 1.3-7.7 H Platelet count measured by fluorescence method. NRBC/100 WBC (test code = 3994073691) See_Comment [Automated [employer] ssage] The system which generated this result transmitted reference range: 0.0 - 10.0 /100 WBCs. The reference range was not used to interpret this result as normal/abnormal. NRBC x10^3 (test code = 7272839517) <0.01 See_Comment [Automated messa ge] The system which generated this result transmitted reference range: 10*3/?L. The reference range was not used to interpret this result as normal/abnormal. GRAN MAT (NEUT) % (test code = 770-8) 79.5 % IMM GRAN % (test code = 1151087310) 0.40 % LYMPH % (test code = 736-9) 14.6 % MONO % (test code = 5905-5) 4.8 % EOS % (test code = 713-8) 0.4 % BASO % (test code = 706-2) 0.3 % GRAN MAT x10^3(ANC) (test code = 2980479185) 7.17 10*3/uL 1.88-7.09 H IMM GRAN x10^3 (test code = 4774851376) 0.04 10*3/uL 0.00-0.06 LYMPH x10^3 (test code = 731-0) 1.32 10*3/uL 1.32-3.29 MONO x10^3 (test code = 742-7) 0.43 10*3/uL 0.33-0.92 EOS x10^3 (test code = 711-2) 0.04 10*3/uL 0.03-0.39 BASO x10^3 (test code = 704-7) 0.03 10*3/uL 0.01-0.07 Lab Interpretation (test code = 34499-4) Abnormal [facility] [id number] 17:34:00* Test Item Value Reference Range Interpretation Comme nts POCT PREG (test code = 1605) Negative On board controls acceptable with C Line (test code = 3574) Present POCT PREG LOT # (test code = 3575) HCG [id number] POCT PREG TEST DATE ( test code = 3576) 11/21/2022 Lab Interpretation (test cod e = 22543-4) Normal [facility] CampusUrinalysis2019-12-05 12:04:00* Test Item Value Reference Range Interpretation [...] (test code = PREGUSG) 1.025 1.002-1.036 N [id number] 12:03:00* Test Item Value Reference Range Interpretation [...]
[2023-09-05] MEDS ORDERED: NA CHLORIDE 0.9% 1,000 ML ONE (21:30)
[2023-09-05] MEDS ORDERED: Magnesium Sulfate 2gm IVPB 2 G/50 ML BAG IV ONE (21:30)
[2023-09-05] MEDS ORDERED: METOCLOPRAMIDE 10 MG/2mL INJ ONE (21:30)
[2023-09-05] MEDS ORDERED: ALBUTEROL 2.5 MG/3 ML NEB SOL ONE (21:40)
[2023-09-05] MEDS ORDERED: IPRATROPIUM BROM 0.5MG/2.5ML ONE (21:40)
[2023-09-05] MEDS ORDERED: METHYLPREDNISOLONE 125 MG INJ ONE (21:40)
[2023-09-05 21:55] LABS: Absolute Lymphocytes (CBC) 1.8 K/uL (0.7-4.9); Hematocrit 39.6 % (36.0-45.0); MCV 85.9 fL (80-100); MPV 10.7 fL (7.6-11.3); Platelets 143 thou/uL (152-406); RBC Red Blood Cell Count 4.61 M/uL (3.86-4.86)
--- NOTE | 2023-09-05 21:55 | RAD REPORT ---
EXAM DESCRIPTION: RAD - Chest Single View - 09/05/2023 9:50 pm CLINICAL HISTORY: DYSPNEA Chest pain. COMPARISON: Chest Single View dated 08/09/2023; Chest Single View dated 05/29/2023; CHEST SINGLE VIEW dated 04/05/2015 FINDINGS: Portable technique limits examination quality. The lungs are grossly clear. The heart is normal in size. No displaced fractures. IMPRESSION: No acute intrathoracic process suspected.
[2023-09-05] MEDS ORDERED: ONDANSETRON 4 MG/2 ML VIAL ONE (21:56)
[2023-09-05 22:16] LABS: Albumin 3.7 g/dL (3.4-5.0); Bilirubin Direct 0.1 mg/dL (0-0.2); Bilirubin Indirect, Calculated 0.2 mg/dL (0.2-0.8); Bilirubin Total 0.3 mg/dL (0.2-1.0); Potassium 3.3 mEq/L (3.5-5.1); Protein, Total 7.6 g/dL (6.4-8.2)
[2023-09-05 22:32] LABS: SARS-COV-2 RT PCR NEGATIVE (NEGATIVE)
--- NOTE | 2023-09-05 23:15 | EDPHYS ---
Physician Documentation [facility] Name: Kimber Layton Age: 22 yrs Sex: Female : 2000 Arrival Date: 09/05/2023 Time: 20:40 Bed 5 Private MD: ED Physician Shen Cao HPI: 09/05 20:54 This 22 yrs old Female presents to ER via EMS with complaints of Shortness Of sp4 Breath. 20:57 Last visit 09/03/2023 for Fever , cough and congestion. PMH - Allergies: Amoxicillin; sp4 Motrin; PENICILLINS PMHx: Asthma; GERD PSHx: left knee. 21:55 Patient states she has been feeling badly for the past 3 weeks, she has had symptoms of sp4 flu, cough, pleuritic chest pain, fevers with Tmax 102.6, also vomiting. Vomiting intensified today. Patient visited emergency room here on 09/03/2023 was treated for symptomatic illness and was discharged home. Reported she was exposed to influenza at home. . Historical: - Allergies: 20:51 Amoxicillin; nj1 20:51 Motrin; nj1 20:51 PENICILLINS; nj1 - PMHx: 20:51 Asthma; GERD; nj1 - PSHx: 20:51 left knee; nj1 - Immunization history:: Client reports having NOT received the Covid vaccine. - Social history:: Smoking status: Patient denies any tobacco usage or history of. - Family history:: not pertinent. ROS: 21:55 Constitutional: Positive fever, positive chills, positive chest pain, positive sp4 vomiting, positive for weakness and generalized fatigue 21:55 All other systems are negative, Exam: 21:55 Constitutional: This is a well developed, well nourished patient who is awake, alert, sp4 ill-appearing but nontoxic Head/Face: Normocephalic, atraumatic. Eyes: Pupils equal round and reactive to light, extra-ocular motions intact. Lids and lashes normal. Conjunctiva and sclera are not injected. Cornea within normal limits. Periorbital areas with no swelling, redness, or edema. ENT: Nares patent. No nasal discharge, no septal abnormalities noted. Tympanic membranes are normal and external auditory canals are clear. Oropharynx with no redness, swelling, or masses, exudates, or evidence of obstruction, uvula midline. Mucous membranes moist. Neck: Trachea midline, no thyromegaly or masses palpated, and no cervical lymphadenopathy. Supple, full range of motion without nuchal rigidity, or vertebral point tenderness. Chest/axilla: Normal chest wall appearance and motion. Nontender with no deformity. No lesions are appreciated. Cardiovascular: Regular rate and rhythm with a normal S1 and S2. No gallops, murmurs, or rubs. Normal PMI, no JVD. No pulse deficits. Respiratory: Lungs have equal breath sounds bilaterally, clear to auscultation and percussion, No increased work of breathing, no retractions or nasal flaring. Positive mild bilateral scattered expiratory wheezes Abdomen/GI: Soft, non-tender, with normal bowel sounds. No distension or tympany. No guarding or rebound. No evidence of tenderness throughout. Back: No spinal tenderness. No costovertebral tenderness. Skin: Warm, dry with normal turgor. Normal color with no rashes, no lesions, and no evidence of cellulitis. MS/ Extremity: Pulses equal, no cyanosis. Neurovascular intact. Full, normal range of motion. Neuro: Awake and alert, GCS 15, oriented to person, place, time, and situation. Cranial nerves II-XII grossly intact. Motor strength 5/5 in all extremities. Sensory grossly intact. Psych: Awake, alert, with orientation to person, place and time. Behavior, mood, and affect are within normal limits Vital Signs: 20:48 BP 120 / 81; Pulse 85; Resp 18; Temp 99.1; Pulse Ox 100% on R/A; Weight 81.65 kg; nj1 Height 5 ft. 7 in. ; Pain 8/10; 22:00 BP 113 / 62; Pulse 92; Resp 16; Pulse Ox 100% on R/A; km8 22:30 BP 107 / 70; Pulse 97; Resp 16; Pulse Ox 98% on R/A; km8 20:48 Body Mass Index 28.19 (81.65 kg, 170.18 cm) [facility] 20:48 Pain Scale: Adult [facility] MDM: 21:06 Patient medically screened. sp4 22:01 Differential diagnosis: Anxiety Reaction asthma, Bronchitis pneumonia, Psychogenic. sp4 Data reviewed: vital signs, nurses notes, EMS record, old medical records, lab test result(s), radiologic studies, plain films. ED course: Chest - EXAM DESCRIPTION: RAD - Chest Single View - 09/05/2023 9:50 pm CLINICAL HISTORY: DYSPNEA Chest pain. COMPARISON: Chest Single View dated 08/09/2023; Chest Single View dated 05/29/2023; CHEST SINGLE VIEW dated 04/05/2015 FINDINGS: Portable technique limits examination quality. The lungs are grossly clear. The heart is normal in size. No displaced fractures. IMPRESSION: No acute intrathoracic process suspected.. 23:13 ED course: Patient is positive for Influenza B . Provide prescription for oseltamivir, sp4 albuterol, ibuprofen, dextromethorphan guaifenesin, ondansetron for symptoms . 09/05 20:55 Order name: COVID-19/FLU A+B; Complete Time: 23:04 sp4 09/05 20:56 Order name: Basic Metabolic Panel; Complete Time: 22:16 4 09/05 20:56 Order name: CBC with Diff; Complete Time: 22:02 sp4 09/05 20:56 Order name: LFT's; Complete Time: 22:16 sp4 09/05 21:04 Order name: Granite Screen Profile; Complete Time: 23:04 sp4 09/05 20:56 Order name: XRAY Chest (1 view); Complete Time: 22:02 sp4 09/05 20:56 Order name: IV Saline Lock; Complete Time: 21:45 sp4 09/05 20:56 Order name: Labs collected and sent; Complete Time: 21:45 sp4 09/05 20:56 Order name: O2 Per Protocol; Complete Time: 21:45 sp4 09/05 20:56 Order name: O2 Sat Monitoring; Complete Time: 21:45 sp4 Administered Medications: 21:44 Drug: NS 0.9% IV 1000 ml IV at 1 bolus Per protocol; 1000 mL bolus Route: IV; Rate: 1 rv bolus; Site: left antecubital; 23:47 Follow up: IV Status: Completed infusion; IV Intake: 1000ml rv 21:44 Drug: Magnesium Sulfate IVPB 2 grams IVPB once over 2 hrs Route: IVPB; Infused Over: 2 rv hrs; Site: left antecubital; 23:46 Follow up: IV Status: Completed infusion; IV Intake: 50ml rv 21:45 Drug: Albuterol Inhalation 2.5 mg Inhalation every 20 minutes x3 Route: Inhalation; rv 23:48 Follow up: Response: Marked relief of symptoms rv 21:45 Drug: Albuterol Inhalation 2.5 mg Inhalation every 20 minutes x3 Route: Inhalation; rv 21:45 Drug: Ipratropium Inhalation Aerosol 0.5 mg Inhalation once Route: Inhalation; rv 23:47 Follow up: Response: Marked relief of symptoms rv 21:45 Drug: MethylPrednisoLONE IVP 125 mg IVP once Route: IVP; Site: left antecubital; rv 23:47 Follow up: Response: No adverse reaction rv 21:45 Drug: Ondansetron IVP 4 mg IVP once; over 2 minutes Route: IVP; Site: left antecubital; rv 23:47 Follow up: Response: No adverse reaction rv 23:47 Not Given (NOT APPROPRIATE AT THIS TIMEv): [id number] mg IVP once; over 1 to 2 rv minutes 23:47 Not Given (NOT APPROPRIATE AT THIS TIMEv): morphineor iv 4 mg IVP once over 4 mins rv 23:47 Not Given (NOT APPROPRIATE AT THIS TIME): [id number] mg IVP once rv Disposition Summary: 09/05/23 23:14 Discharge Ordered Problem: new sp4 Symptoms: have improved sp4 Condition: Stable sp4 Diagnosis - Other specified viral diseases sp4 - Acute bronchitis, unspecified sp4 - Muscle weakness (generalized) sp4 Followup: sp4 - With: Private Physician - When: 5 - 6 days - Reason: Recheck today's complaints Discharge Instructions: - Discharge Summary Sheet sp4 - Influenza, Adult, [id number] sp4 Forms: - Work release form lg3 - Patient Portal Instructions sp4 Prescriptions: - dextromethorphan-guaifenesin 10-200 mg Oral capsule - take 2 capsule ORAL route every 6 hours PRN cough; 60 capsule; Refills: 0, sp4 Product Selection Permitted - ketorolac 10 mg Oral tablet - take 1 tablet ORAL route every 8 hours PRN pain or fever; 30 tablet; Refills: sp4 0, Product Selection Permitted - Albuterol Sulfate 2.5 mg /3 mL (0.083 %) Inhalation Solution for Nebulization - inhale 1 unit NEBULIZATION route every 4 hours As needed Dispense 50 respules sp4 or Two boxes , Dispense with Nebulizer and Adult mask; 50 unit; Refills: 0, Product Selection Permitted - Tamiflu 75 mg Oral capsule - take 1 tablet ORAL route every 12 hours for 5 days; 10 tablet; Refills: 0, sp4 Product Selection Permitted - ondansetron 8 mg Oral Tablet,disintegrating - take 1 tablet ORAL route every 6 hours PRN nausea; 30 tablet; Refills: 0, sp4 Product Selection Permitted Signatures: Dispatcher [employer] Mitesh Crane RN RN rv Shen Cao MD MD sp4 Edna Acosta RN RN nj1
--- NOTE | 2023-09-05 23:15 | ER ---
Nurse's Notes [facility] Name: Kimber Layton Age: 22 yrs Sex: Female : 2000 Arrival Date: 09/05/2023 Time: 20:40 Bed 5 Private MD: Diagnosis: Other specified viral diseases;Acute bronchitis, unspecified;Muscle weakness (generalized) Presentation: 09/05 20:48 Chief complaint: Patient states: Sick for 3 weeks, had bronchitis first, then the flu nj1 (Sunday09/03/23). Congested, chest hurting, fever on/off, weakness, along with dizziness. Coronavirus screen: Vaccine status: Patient reports being unvaccinated. Ebola Screen: Patient denies travel to an Ebola-affected area in the 21 days before illness onset. Initial Sepsis Screen: Does the patient meet any 2 criteria? No. Patient's initial sepsis screen is negative. Does the patient have a suspected source of infection? No. Patient's initial sepsis screen is negative. Risk Assessment: Do you want to hurt yourself or someone else? Patient reports no desire to harm self or others. Onset of symptoms was July 2023. 20:48 Method Of Arrival: EMS: [facility] nj1 20:48 Acuity: REYNA 3 nj1 20:51 Care prior to arrival: IV initiated. 20 GA, in the left antecubital area. nj1 Historical: - Allergies: 20:51 Amoxicillin; nj1 20:51 Motrin; nj1 20:51 PENICILLINS; nj1 - PMHx: 20:51 Asthma; GERD; nj1 - PSHx: 20:51 left knee; nj1 - Immunization history:: Client reports having NOT received the Covid vaccine. - Social history:: Smoking status: Patient denies any tobacco usage or history of. - Family history:: not pertinent. Screenin:00 [facility] ED Fall Risk Assessment (Adult) History of falling in the last 3 months, rv including since admission No falls in past 3 months (0 pts) Score/Fall Risk Level 0 - 2 = Low Risk Oriented to surroundings, Maintained a safe environment, Educated pt \T\ family on fall prevention, incl call for assistance when getting out of bed, Assessed \T\ reinforced patient's understanding of fall precautions. Abuse screen: Denies threats or abuse. Denies injuries from another. Nutritional screening: No deficits noted. Tuberculosis screening: No symptoms or risk factors identified. Assessment: 20:00 General: Appears comfortable, Behavior is calm, cooperative. rv 20:00 Pain: Denies pain. Neuro: Level of Consciousness is awake, alert. Cardiovascular: rv Capillary refill < 3 seconds Rhythm is regular. Respiratory: Airway is patent Respiratory effort is even, unlabored, Breath sounds with wheezes bilaterally. Derm: Skin is intact. Vital Signs: 20:48 BP 120 / 81; Pulse 85; Resp 18; Temp 99.1; Pulse Ox 100% on R/A; Weight 81.65 kg; nj1 Height 5 ft. 7 in. ; Pain 8/10; 22:00 BP 113 / 62; Pulse 92; Resp 16; Pulse Ox 100% on R/A; km8 22:30 BP 107 / 70; Pulse 97; Resp 16; Pulse Ox 98% on R/A; km8 20:48 Body Mass Index 28.19 (81.65 kg, 170.18 cm) nj1 20:48 Pain Scale: Adult tx1 ED Course: 20:00 Patient has correct armband on for positive identification. Client placed on continuous rv cardiac and pulse oximetry monitoring. NIBP monitoring applied. 20:00 No provider procedures requiring assistance completed. Maintain EMS IV. Dressing rv intact. Good blood return noted. Site clean \T\ dry. Gauge \T\ site: 20 LAC. 20:45 Patient arrived in ED. gm2 20:51 Triage completed. nj1 20:52 Arm band placed on right wrist. nj1 20:54 Shen Cao MD is Attending Physician. sp4 21:44 Mitesh Ashford RN is Primary Nurse. rv 21:51 XRAY Chest (1 view) In Process Unspecified. EDMS 23:46 IV discontinued, intact, bleeding controlled, No redness/swelling at site. Pressure rv dressing applied. Administered Medications: 21:44 Drug: NS 0.9% IV 1000 ml IV at 1 bolus Per protocol; 1000 mL bolus Route: IV; Rate: 1 rv bolus; Site: left antecubital; 23:47 Follow up: IV Status: Completed infusion; IV Intake: 1000ml rv 21:44 Drug: Magnesium Sulfate IVPB 2 grams IVPB once over 2 hrs Route: IVPB; Infused Over: 2 rv hrs; Site: left antecubital; 23:46 Follow up: IV Status: Completed infusion; IV Intake: 50ml rv 21:45 Drug: Albuterol Inhalation 2.5 mg Inhalation every 20 minutes x3 Route: Inhalation; rv 23:48 Follow up: Response: Marked relief of symptoms rv 21:45 Drug: Albuterol Inhalation 2.5 mg Inhalation every 20 minutes x3 Route: Inhalation; rv 21:45 Drug: Ipratropium Inhalation Aerosol 0.5 mg Inhalation once Route: Inhalation; rv 23:47 Follow up: Response: Marked relief of symptoms rv 21:45 Drug: MethylPrednisoLONE IVP 125 mg IVP once Route: IVP; Site: left antecubital; rv 23:47 Follow up: Response: No adverse reaction rv 21:45 Drug: Ondansetron IVP 4 mg IVP once; over 2 minutes Route: IVP; Site: left antecubital; rv 23:47 Follow up: Response: No adverse reaction rv 23:47 Not Given (NOT APPROPRIATE AT THIS TIMEv): [id number] mg IVP once; over 1 to 2 rv minutes 23:47 Not Given (NOT APPROPRIATE AT THIS TIMEv): morphineor iv 4 mg IVP once over 4 mins rv 23:47 Not Given (NOT APPROPRIATE AT THIS TIME): [id number] mg IVP once rv Medication: 20:00 VIS not applicable for this client. rv Intake: 23:46 IV: 50ml; Total: 50ml. rv 23:47 IV: 1000ml; Total: 1050ml. rv Outcome: 23:14 Discharge ordered by MD. sp4 23:36 Discharged to home ambulatory, lg3 23:36 Condition: stable 23:36 Discharge instructions given to patient, Instructed on discharge instructions, follow up and referral plans. medication usage, Demonstrated understanding of instructions, follow-up care, medications, Prescriptions given X 5 23:48 Patient left the ED. rv Signatures: Dispatcher [employer] EDMS Mitesh Ashford RN RN rv Rebecca Pulido RN RN lg3 Shen Cao MD MD sp4 Edna Acosta RN RN nj1 Leola Puentes gm2 Carolina Crowley RN RN km8
[2023-09-06 03:37] VITALS: TEMP 99.1
[2023-09-06 03:40] VITALS: BP 107/70; O2SAT 98
== END 2023-09-05 23:48 | disposition home or self-care (01) ==
LOC: ER 20:40
DX: J20.9 Acute bronchitis, unspecified (principal); M62.81 Muscle weakness (generalized); Z11.52 Encounter for screening for COVID-19
CPT/HCPCS: 0240U; 36415; 71045; 80048; 80076; 85025; 86308; J2405; J2765; J2930; J3475; J7030; J7613; J7644

== ENCOUNTER 2024-03-03 14:39 | Inpatient (IN) | payer BC, SELFPAY ==
--- OUTSIDE RECORDS SUMMARY | 2024-03-03 14:43 | XMS REPORT | Continuity of Care Document ---
Author Name Unknown Address [address] [place] [address] [facility] thconnect Address [address] [place] [address] Care Team Providers Care Vp Of Product Name Role Phone PCP, PATIENT DOES NOT HAVE A Primary Care Physic DR SANTA Carcamo Attending Clinician UnavailDR CUONG Loo Attending Clinician Unavailable ALFREDO COHEN Attending Clinician Unavailable Alfredo Godinez Attending Clinician [phone] Doctor Unassigned, [facility] Attending Clinician U NADINE Swain Attending Clinician Unavailable Nadine Juarez Attending Clinician [phone] KATHI RODRÍGUEZ Attending Clinician UnavailKathi Hart DO Attending Clinician PROVIDER, ED TEMP Attending Clinician DR SANTA Alonzo Admitting Clinician UnavailDR CUONG Loo Admitting Clinician Unavailable ALFREDO COHEN Admitting Clinician Unavailable [...] by parents [facility] ONION EXTRACT FA Active UNKNOWN [place] No Known Allergie s MA Active UNKNOWN [place] NO KNOWN ALLERGIE S Drug Class Active [facility] penicill in DA Active MILD Rash; Rash [place] Social History Social Habit Start Date Stop Date Quantity Comments Source Exposure to SARS-CoV-2 (event) 2022-09-08 00:00:00 2022-09-18 21:03:00 Not sure [facility] Sex Assigned At 2000 00:00:00 2000 00:00:00 [facility] Smoking Status Start Date Stop Date Source Tobacco smoking consumption unknown [facility] Medications Ordered Medication Name Filled Medication Name [...] ONCE, 1 dose, On Sun09/18/22 at 2330, RADHA [facility] predniSONE (DELTASONE) tablet 40 mg 2021-09 04:45: 00 09-19 04:46 :00 No 40mg 40 mg, Oral, ONCE, 1 dose, On Sun09/18/22 at 2245, [facility] ondansetron (ZOFRAN (PF)) injection 4 mg 2021-09 04:00: 00 09-19 03:25 :00 No 4mg 4 mg, Slow IV Push, ONCE, 1 dose, On Sun09/18/22 at 2200, [facility] NaCl 0.9% (NS) bolus infusion 1,000 mL 2021-09 04:00: 00 09-19 05:31 :00 No 1000mL at 999 mL/hr, 1,000 mL, IV Infusion, ONCE, 1 dose, On Sun09/18/22 at 2200, [facility] benzonatate 200 mg capsule 2021-09 00:00: 00 Yes [id number] 200mg Take 1 capsule by mouth 3 (three) times daily as needed for Cough. [facility] doxycycline hyclate 100 mg capsule 2021-09 00:00: 00 09-26 05:59 :00 No [id number] 100mg Take 1 capsule by mouth in the morning and 1 capsule in the evening. Do all this for 7 days. [facility] predniSONE 20 mg tablet 2021-09 00:00: 00 09-24 05:59 :00 No [id number] 40mg Take 2 tablets by mouth in the morning for 5 days. [facility] activated charcoal-so rbitoL (ACTIDOSE/S ORBITAL) 25 gram/120 mL suspension 25 g 10-04 19:00: 00 10-04 18:43 :00 No 25g 25 g, Oral, ONCE, 1 dose, On Sun10/04/21 at 1300, [facility] predniSONE 10 mg tablet 2020-09 00:00: 00 09-14 05:59 :00 No [id number] 50mg Take 5 tablets by mouth daily for 4 days. [facility] albuterol (PROVENTIL) 2.5 mg /3 mL (0.083 %) nebulizer solution 5 mg 2020-09 16:30: 00 09-08 15:33 :00 No 5mg 5 mg, Inhalation , ONCE, 1 dose, On Amelai 09/08/21 at 1030, [facility] predniSONE (DELTASONE) tablet 50 mg 2020-09 16:30: 00 09-08 15:41 :00 No 50mg 50 mg, Oral, ONCE, 1 dose, On Amelia 09/08/21 at 1030, [facility] ipratropium (ATROVENT) 0.02 % nebulizer solution 0.5 mg 2020-09 15:45: 00 09-08 14:47 :00 No .5mg 0.5 mg, Inhalation , ONCE, 1 dose, On Amelia 09/08/21 at 0945, [facility] albuterol (PROVENTIL) 2.5 mg /3 mL (0.083 %) nebulizer solution 5 mg 2020-09 15:45: 00 09-08 14:47 :00 No 5mg 5 mg, Inhalation , ONCE, 1 dose, On Amelia 09/08/21 at 0945, [facility] ondansetron (ZOFRAN-ODT ) disintegrat ing tablet 4 mg 2020-09 15:30: 00 09-08 14:17 :00 No 4mg 4 mg, Oral, ONCE, 1 dose, On Amelia 09/08/21 at 0930, Routine [facility] ondansetron (ZOFRAN ODT) 4 mg disintegrat ing tablet 2020-09 00:00: 00 Yes [id number] 4mg Take 1 tablet by mouth every 8 (eight) hours as needed for Nausea and Vomiting (N/V). [facility] Vital Signs Vital Name Observation Time Observation Value Comments S ource Height 2023-12-31 14:53:32 068 Inches Body Weight 2023-12-31 14:53:32 200.00 pounds Height 2023-12-27 12:56:41 068 Inches Body Weight 2023-12-27 12:56:41 200.00 pounds Height 2023-12-27 11:54:53 068 Inches Body Weight 2023-12-27 11:54:53 158.00 pounds Height 2023-12-10 19:36:23 068 Inches Body Weight 2023-12-10 19:36:23 158.00 pounds Height 2023-12-10 19:36:22 068 Inches Body Weight 2023-12-10 19:36:22 158.00 pounds Height 2023-12-10 19:36:21 068 Inches Body Weight 2023-12-10 19:36:21 158.00 pounds Systolic blood pressure 2022-09-19 04:00:00 115 mm[Hg] [facility] Diastolic blood pressure 2022-09-19 04:00:00 60 mm[Hg] [facility] Heart rate 2022-09-19 04:00:00 66 /min [facility] Respiratory rate 2022-09-19 04:00:00 18 /min [facility] Oxygen saturation in Arterial blood by Pulse oximetry 2022-09-19 04:00:00 97 /min [facility] Body temperature 2022-09-19 03:06:00 37.39 Tiara [facility] Body height 2022-09-19 03:06:00 172.7 cm [facility] Body weight 2022-09-19 03:06:00 81.647 kg [facility] BMI 2022-09-19 03:06:00 27.37 kg/m2 [facility] Systolic blood pressure 2021-10-04 16:49:00 133 mm[Hg] [facility] Diastolic blood pressure 2021-10-04 16:49:00 96 mm[Hg] [facility] Heart rate 2021-10-04 16:49:00 112 /min [facility] Respiratory rate 2021-10-04 16:49:00 22 /min [facility] Body height 2021-10-04 16:49:00 165.1 cm [facility] Body weight 2021-10-04 16:49:00 79.379 kg [facility] BMI 2021-10-04 16:49:00 29.12 kg/m2 [facility] Oxygen saturation in Arterial blood by Pulse oximetry 2021-10-04 16:49:00 100 /min [facility] Systolic blood pressure 2021-09-08 16:36:51 122 mm[Hg] [facility] Diastolic blood pressure 2021-09-08 16:36:51 60 mm[Hg] [facility] Heart rate 2021-09-08 16:36:51 94 /min [facility] 2021-09-08 16:36:51 36.78 Tiara [facility] Respiratory rate 2021-09-08 16:36:51 18 /min [facility] Oxygen saturation in Arterial blood by Pulse oximetry 2021-09-08 16:36:51 99 /min [facility] Body height 2021-09-08 13:52:00 172.7 cm [facility] Body weight 2021-09-08 13:52:00 88.451 kg [facility] BMI 2021-09-08 13:52:00 29.65 kg/m2 [facility] BP Systolic 2021-07-27 12:41:[address] [facility] BP Diastolic 2021-07-27 12:41:[address] [facility] BMI (Body Mass Index) 2021-07-27 12:41:[address] [facility] Height 2021-07-27 12:41:17 [facility] Weight Measured 2021-07-27 12:41:[address] [facility] Body Temperature 2021-07-27 12:41:[address] [facility] Heart Rate 2021-07-27 12:41:17 [facility] Respiratory Rate 2021-07-27 12:41:[address] [facility] O2 % BldC Oximetry 2021-07-27 12:41:17 [facility] Procedures Procedure Date / Time Performed Performing Clinician Source XR CHEST 1 VW 2022-09-19 03:47:07 Alfredo Cohen [facility] URINALYSIS 2022-09-19 03:33:00 Alfredo Cohen [facility] POCT TEST 2022-09-19 03:33:00 Blanka Cohen [facility] TROPONIN I 2022-09-19 03:25[facility]. METABOLIC PANEL (43130) 2022-09-19 03:25:00 Alfredo Cohen [facility] CBC WITH DIFF 2022-09-19 03:25:00 Alfredo Cohen [facility] RAPID INFLUENZA A/B 2022-09-19 03:25:00 Blanka Cohen [facility] N-TERMINAL PRO-BNP 2022-09-19 03:25:00 Renetta Cohen [facility] COVID-19 (ID NOW RAPID TESTING) 2022-09-19 03:25:00 Alfredo Cohen [facility] EXTERNAL PROVIDER RECORDS 2021-10-19 06:01:00 Doctor Unassigned, [facility] CT HEAD WO CONTRAST 2021-10-04 18:04:08 Nadine Escobedo [facility] XR CHEST 1 VW 2021-10-04 18:03:00 Nadine Escobedo [facility] URINE DRUG (IMMUNOASSAY) - COMPREHENSIVE DRUG SCREEN 2021-10-04 17:40:00 Nadine Escobedo [facility] CREATINE KINASE 2021-10-04 17:35:00 Nadine Escobedo [facility] LIPASE 2021-10-04 17:35:00 Nadine Escobedo [facility] TROPONIN I 2021-10-04 17:35:00 Nadine Escobedo [facility] COMP. METABOLIC PANEL (82607) 2021-10-04 17:35:00 Nadine Escobedo [facility] SALICYLATE 2021-10-04 17:35:00 Nadine Escobedo [facility] ETHANOL 2021-10-04 17:35:00 Nadine Escobedo [facility] CBC WITH DIFF 2021-10-04 17:35:00 Nadine Escobedo [facility] URINALYSIS 2021-10-04 17:35:00 Nadine Escobedo [facility] COVID-19 (ID NOW RAPID TESTING) 2021-10-04 17:35:00 Nadine Escobedo [facility] POCT TEST 2021-10-04 17:34:00 Nadine Escobedo [facility] NOTICE OF PRIVACY PRACTICES 2021-09-08 13:48:15 Doctor Unassigned, [facility] CONSENT/REFUSAL FOR DIAGNOSIS AND TREATMENT 2021-09-08 13:48:03 Doctor Unassigned, [facility] Encounters Start Date/Time End Date/Time Encounter Type Admission Type Attending [facility] Care Department Encounter ID Source 2023-12-27 11:42:00 2023-12-27 12:56:00 Emergency [facility] [id number] [facility] 2023-12-10 10:30:00 2023-12-10 11:24:00 Emergency E [facility] [id number] [facility] 2022-09-18 21:01:00 2022-09-18 23:53:00 Emergency X ALFREDO COHEN [facility] ERT [id number] [facility] 2022-09-18 21:01:00 2022-09-18 23:53:00 Emergency Alfredo Cohen [facility] .[id number] [facility] 2021-10-19 00:00:00 2021-10-19 00:00:00 Orders Only Doctor Unassigned, [facility] [id number] [facility] 2021-10-04 10:52:00 2021-10-04 13:41:00 Emergency X NADINE ESCOBEDO [facility] ERT [id number] [facility] 2021-10-04 10:52:00 2021-10-04 13:41:00 Emergency Nadine Escobedo [facility] [id number] [facility] 2021-09-08 07:53:00 2021-09-08 10:38:00 Emergency X KATHI RODRÍGUEZ [facility] ERT [id number] [facility] 2021-09-08 07:53:00 2021-09-08 10:38:00 Emergency Kathi Rodríguez [facility] [id number] [facility] 2019-10-14 13:42:00 2019-10-14 16:23:00 Departed Emergency [id number] 1.2 [facility] [id number] [address] [place] [address]) Results Test Description Test Time Test Comments Results Result Co mments Source [id number] 04:00:28* Test Item Value Reference Range Interpretation Comme nts NT-proBNP (test code = 3403390227) 31 pg/mL See_Comment [Automated message] The system which generated this result transmitted reference range: <=125. The reference range was not used to interpret this result as normal/abnormal. HEMANT (test code = HEMANT) Biotin has been reported to cause a negative bias, interpret results relative to patient's use of biotin. Lab Interpretation (test code = 64176-5) Normal [facility]OLIC PAN[facility] ([id number])2022-09-19 03:52:25* Test Item Value Reference Range Interpretation Comme nts NA (test code = 4329537098) 138 mmol/L 135-145 K (test code = 4039022836) 4.0 mmol/L 3.5-5.0 CL (test code = 9241890959) 105 mmol/L 98-108 CO2 TOTAL (test code = 0546106776) 24 mmol/L 23-31 AGAP (test code = 4021834124) 2-16 BUN (test code = 6533505562) 18 mg/dL 7-23 GLUCOSE (test code = 3624228166) 127 mg/dL 70-110 H CREATININE (test code = 2436011116) 0.81 mg/dL 0.50-1.04 TOTAL BILI (test code = 0775299930) 0.3 mg/dL 0.1-1.1 CALCIUM (test code = 1601076519) 8.8 mg/dL 8.6-10.6 T PROTEIN (test code = 0102804850) 7.1 g/dL 6.3-8.2 ALBUMIN (test code = 6241372448) 4.4 g/dL 3.5-5.0 ALK PHOS (test code = 5785689538) 52 U/L 34-122 ALTv (test code = 1742-6) 25 U/L 5-35 AST(SGOT) (test code = 7162372131) 27 U/L 13-40 eGFR (test code = 6503472998) mL/min/1.73m2 HEMANT (test code = HEMANT) Association [...] imaging tests). Lab Interpretation (test code = 72816-1) Abnormal [facility] WITH [id number] 03:38:46* Test Item Value Reference Range Interpretation Comme nts WBC (test code = 6690-2) See_Comment [Automated [employer]] The system which generated this result transmitted reference range: 4.30 - 11.10 10*3/?L. The reference range was not used to interpret this result as normal/abnormal. RBC (test code = 789-8) See_Comment [Automated [employer]] The system which generated this result transmitted [...] 33.8 g/dL 31.6-35.1 RDW-SD (test code = 17095-8) 37.8 fL 39.0-49.9 L RDW-CV (test code = 788-0) 12.3 % 12.0-15.5 PLT (test code = 777-3) See_Comment L [Automated [employer]] The system which generated this result transmitted reference range: 166 - 358 10*3/?L. The reference range was not used to interpret this result as normal/abnormal. MPV (test code = 56350-0) 12.8 fL 9.5-12.9 NRBC/100 WBC (test code = 9587793753) See_Comment [Automated me ssage] The system which generated this result transmitted reference range: 0.0 - 10.0 /100 WBCs. The reference range was not used to interpret this result as normal/abnormal. NRBC x10^3 (test code = 5990964606) See_Comment [Automated messa ge] The system which generated this result transmitted reference range: 10*3/?L. The reference range was not used to interpret this result as normal/abnormal. GRAN MAT (NEUT) % (test code = 770-8) 69.0 % IMM GRAN % (test code = 3564633072) 0.30 % LYMPH % (test code = 736-9) 25.3 % MONO % (test code = 5905-5) 4.6 % EOS % (test code = 713-8) 0.6 % BASO % (test code = 706-2) 0.2 % GRAN MAT x10^3(ANC) (test code = 5525238349) 7.47 10*3/uL 1.88-7.09 H IMM GRAN x10^3 (test code = 0016775104) 0.03 10*3/uL 0.00-0.06 LYMPH x10^3 (test code = 731-0) 2.74 10*3/uL 1.32-3.29 MONO x10^3 (test code = 742-7) 0.50 10*3/uL 0.33-0.92 EOS x10^3 (test code = 711-2) 0.07 10*3/uL 0.03-0.39 BASO x10^3 (test code = 704-7) 0.01-0.07 Lab Interpretation (test code = 85228-6) Abnormal [facility] [id number] 03:33:00* Test Item Value Reference Range Interpretation Comme nts POCT PREG (test code = 1605) negative Lab Interpretation (test cod e = 78185-7) Normal [facility] [id number] 18:58:19* Test Item Value Reference Range Interpretation Comments TROPONIN I (test code = 6017104687) 0.004 ng/mL See_Comment [Automated message] The system [...] of biotin. Lab Interpretation (test code = 36635-6) Normal [facility]2022-[facility]11 18:52:56* Test Item Value Reference Range Interpretation Comme nts ALCOHOL (test code = 6390383405) <10 mg/dL HEMANT (test code = HEMANT) <10 [id number] Toxic>100 Depression of CORRECTIONAL CORPORAL>400 Fatalities Reported [facility]2022-[facility]-11 18:51:50* Test Item Value Reference Range Interpretation Comme nts SALICYLATE (test code = 5768316661) <10 mg/L HEMANT (test code = HEMANT) Therapeutic Range: ? Analgesic and Antipyretic Use ? 20-100 mg/L ? ? Anti-Inflammatory Use ? 100-250 mg/L Toxic Range: ? Greater than 300 mg/L [facility]EN2022-01-11 18:51:35* Test Item Value Reference Range Interpretation Comme nts ACETAMINOP (test code = 5197088244) <10.0 10.0-30.0 L HEMANT (test code = HEMANT) Toxic: Greater andrés n 200 ug/mL @ 4 hour post ingestion or greater than 50 ug/mL @ 12 hour post ingestion Lab Interpretation (test code = 38469-4) Abnormal [facility] MET[facility]OLIC PANEL (64915)2021-10-04 18:43:08* Test Item Value Reference Range Interpretation Comme nts NA (test code = 6524150076) 138 mmol/L 135-145 K (test code = 7789531327) 4.5 mmol/L 3.5-5.0 CL (test code = 5263234012) 106 mmol/L 98-108 CO2 TOTAL (test code = 2208250095) 25 mmol/L 23-31 AGAP (test code = 3154657677) 2-16 BUN (test code = 0817090478) 14 mg/dL 7-23 GLUCOSE (test code = 5324044423) 110 mg/dL 70-110 CREATININE (test code = 3227278742) 0.81 mg/dL 0.50-1.04 TOTAL BILI (test code = 2010380407) 0.7 mg/dL 0.1-1.1 CALCIUM (test code = 8447102240) 9.4 mg/dL 8.6-10.6 T PROTEIN (test code = 2096171823) 8.0 g/dL 6.3-8.2 ALBUMIN (test code = 3845079689) 4.9 g/dL 3.5-5.0 ALK PHOS (test code = 3267903088) 55 U/L 34-122 ALTv (test code = 1742-6) 19 U/L 5-35 AST(SGOT) (test code = 4181177443) 32 U/L 13-40 eGFR (test code = 3044057989) mL/min/1.73m2 HEMANT (test code = HEMANT) Association [...] abnormalities in imaging tests). [facility] 18:42:48* Test Item Value Reference Range Interpretation Comme nts LIPASE (test code = 8246347329) 79 U/L 0-220 Lab Interpretation (test cod e = 53786-8) Normal [facility] [id number] 18:42:28* Test Item Value Reference Range Interpretation Comme nts CK (test code = 4256847438) 60 U/L 33-194 Lab Interpretation (test cod e = 34513-9) Normal [facility] WITH [id number] 18:29:45* Test Item Value Reference Range Interpretation Comme nts WBC (test code = 6690-2) See_Comment [Automated [employer] The system which generated this result transmitted reference range: 4.30 - 11.10 10*3/?L. The reference range was not used to interpret this result as normal/abnormal. RBC (test code = 789-8) See_Comment [[employer] The system which generated this result transmitted [...] 33.5 g/dL 31.6-35.1 RDW-SD (test code = 88506-2) 39.6 fL 39.0-49.9 RDW-CV (test code = 788-0) 12.8 % 12.0-15.5 PLT (test code = 777-3) See_Comment [Automated [employer] ge] The system which generated this result transmitted reference range: 166 - 358 10*3/?L. The reference range was not used to interpret this result as normal/abnormal. MPV (test code = 53034-9) 13.7 fL 9.5-12.9 H IPF % (test code = 1277608800) 13.2 % 1.3-7.7 H Platelet count measured by fluorescence method. NRBC/100 WBC (test code = 9242605367) See_Comment [Automated [employer] ssage] The system which generated this result transmitted reference range: 0.0 - 10.0 /100 WBCs. The reference range was not used to interpret this result as normal/abnormal. NRBC x10^3 (test code = 4941897375) <0.01 See_Comment [Automated [employer]] The system which generated this result transmitted reference range: 10*3/?L. The reference range was not used to interpret this result as normal/abnormal. GRAN MAT (NEUT) % (test code = 770-8) 79.5 % IMM GRAN % (test code = 1870924145) 0.40 % LYMPH % (test code = 736-9) 14.6 % MONO % (test code = 5905-5) 4.8 % EOS % (test code = 713-8) 0.4 % BASO % (test code = 706-2) 0.3 % GRAN MAT x10^3(ANC) (test code = 7402456736) 7.17 10*3/uL 1.88-7.09 H IMM GRAN x10^3 (test code = 1996178625) 0.04 10*3/uL 0.00-0.06 LYMPH x10^3 (test code = 731-0) 1.32 10*3/uL 1.32-3.29 MONO x10^3 (test code = 742-7) 0.43 10*3/uL 0.33-0.92 EOS x10^3 (test code = 711-2) 0.04 10*3/uL 0.03-0.39 BASO x10^3 (test code = 704-7) 0.03 10*3/uL 0.01-0.07 Lab Interpretation (test code = 93329-3) Abnormal [facility] [id number] 17:34:00* Test Item Value Reference Range Interpretation Comme nts POCT PREG (test code = 1605) Negative On board controls acceptable with C Line (test code = 3574) Present POCT PREG LOT # (test code = 3575) HCG [id number] POCT PREG TEST DATE ( test code = 3576) 11/21/2022 Lab Interpretation (test cod e = 02987-3) Normal [facility]inalysis2019-[facility] 12:04:00* Test Item Value Reference Range Interpretation [...] (test code = PREGUSG) 1.025 1.002-1.036 N [id number] 12:03:00* Test Item Value Reference Range Interpretation [...]
[2024-03-03] MEDS ORDERED: NA CHLORIDE 0.9% 1,000 ML ONE ×3 (15:38→19:09)
[2024-03-03] MEDS ORDERED: MORPHINE 4 MG/ML SYR ONE ×2 (15:38→17:57)
[2024-03-03] MEDS ORDERED: ONDANSETRON 4 MG/2 ML VIAL ONE ×3 (15:38→21:26)
[2024-03-03 16:07] LABS: Absolute Lymphocytes (CBC) 0.7 K/uL (0.7-4.9); Absolute Monocytes 0.7 K/uL (0.1-1.3); Absolute Neutrophil 15.4 K/uL (1.8-8.0); Basophils % 0.2 % (0-1.3); Hematocrit 44.5 % (36.0-45.0); Hemoglobin 14.6 g/dL (12.0-15.0); Lymphocytes % 4.2 % (15.3-44.8); MCH 28.5 pg (27.0-35.0); MCHC 32.7 g/dL (32.0-36.0); MCV 87.1 fL (80-100); MPV 10.5 fL (7.6-11.3); Monocytes % 4.1 % (3.3-12.3); Neutrophils % 91.5 % (41.7-73.7); Nucleated Red Blood Cells % 0.1 % (0-0); Platelets 185 thou/uL (152-406); RBC Red Blood Cell Count 5.11 M/uL (3.86-4.86); Red Cell Distribution Width 13.4 % (12.1-15.2)
[2024-03-03 16:14] LABS: PT Prothrombin Time 13.3 SECONDS (9.5-12.5); PTT, Activated Partial Thromb 33.2 SECONDS (24.3-36.9); Protime INR 1.22
[2024-03-03 16:27] LABS: ALT/SGPT 19 U/L (13-56); Albumin 3.9 g/dL (3.4-5.0); Alkaline Phosphatase 59 U/L (45-117); Anion Gap 7.2 mEq/L (5.0-15.0); BUN Blood Urea Nitrogen 11 mg/dL (7-18); Bicarbonate 27 mEq/L (21-32); Bilirubin Total 0.5 mg/dL (0.2-1.0); Glomerular Filtration Rate 72 ml/min (=/>90); Glucose Level 116 mg/dL (74-106); Potassium 3.2 mEq/L (3.5-5.1); Protein, Total 7.9 g/dL (6.4-8.2); Sodium Level 134 mEq/L (136-145)
[2024-03-03 16:29] LABS: AST/SGOT < 10 U/L (15-37)
[2024-03-03 16:46] LABS: Specific Gravity 1.023 (1.005-1.030)
--- NOTE | 2024-03-03 16:49 | RAD REPORT ---
EXAM DESCRIPTION: US - Abdomen Exam Limited - 03/03/2024 4:24 pm CLINICAL HISTORY: Abdominal pain. COMPARISON: 2016 FINDINGS: Multiple gallstones. Gallbladder wall thickness is upper limits normal The biliary tree is normal caliber. IMPRESSION: Cholelithiasis without evidence of cholecystitis
--- NOTE | 2024-03-03 16:52 | RAD REPORT ---
EXAM DESCRIPTION: Merle Single View03/03/2024 4:29 pm CLINICAL HISTORY: Abdominal COMPARISON: 2002 FINDINGS: The lungs appear clear of acute infiltrate. The heart is normal size IMPRESSION: No acute abnormalities displayed
[2024-03-03 17:13] LABS: Specific Gravity 1.023 (1.005-1.030); Urine Bacteria None Seen /HPF (<20); Urine Bilirubin NEGATIVE (Negative); Urine Blood Negative (Negative); Urine Clarity Turbid (Clear); Urine Color Light-Yellow (Yellow); Urine Glucose NEGATIVE (Negative); Urine Ketones NEGATIVE (Negative); Urine Microscopic Reflex YN ORDER UMIC; Urine Nitrite NEGATIVE (Negative); Urine Protein TRACE (Negative); Urine RBC <5 /HPF (None Seen); Urine Urobilinogen Normal (Normal); Urine WBC <5 /HPF (<5)
[2024-03-03 17:14] LABS: Sqamous Epithelial <5 /HPF (None Seen); Urine Culture Reflex Order NOT NEEDED; Urine Mucus Slight /HPF (None Seen)
[2024-03-03] MEDS ORDERED: POTASSIUM 25 MEQ EFFERV TAB ONE (17:25)
[2024-03-03] MEDS ORDERED: ACETAMINOPHEN 500 MG TAB ONE (17:25)
[2024-03-03] MEDS ORDERED: CEFTRIAXONE 1000 MG/VIAL ONE (17:25)
[2024-03-03 17:31] LABS: Blood Morphology Comment NOT SEEN (NOT SEEN); Platelet Estimate ADEQ; White Blood Cell Scan OK (OK)
--- NOTE | 2024-03-03 18:33 | RAD REPORT ---
EXAM DESCRIPTION: CT - Abdomen Pelvis W Contrast - 03/03/2024 5:45 pm CLINICAL HISTORY: Abdominal pain COMPARISON: 2021 TECHNIQUE: Computed axial tomography of the abdomen pelvis was obtained. 100 cc Isovue-300 was admin istered intravenously. Oral contrast was not requested which limits evaluation of bowel and appendix The patient vomited during the scanning so additional images were obtained All CT scans are performed using dose optimization technique as appropriate and may include automated exposure control or mA/KV adjustment according to patient size. FINDINGS: The liver, spleen, pancreas, adrenal and kidneys appear unremarkable. There is no evidence of diverticulitis. Mild thickening of the wall of left colon Normal appendix. No adnexal mass Multiple gallstones. Gallbladder wall is not thickened. IMPRESSION: Mild thickening of the wall of the left colon may indicate a mild colitis Cholelithiasis
--- NOTE | 2024-03-03 18:51 | EDPHYS ---
Physician Documentation [facility] Name: Kimber Layton Age: 23 yrs Sex: Female : 2000 Arrival Date: 03/03/2024 Time: 14:39 Bed 20 Private MD: ED Physician Jadiel Swain HPI: 03/03 15:40 This 23 yrs old Female presents to ER via Ambulatory with complaints of Abdominal Pain, cp Vomiting, Fever. 15:40 The patient presents with abdominal pain in the epigastric area, in the right upper cp quadrant. Onset: The symptoms/episode began/occurred last night. The symptoms radiate to Associated signs and symptoms: Pertinent positives: nausea and vomiting, fever, Pertinent negatives: blood in stools, constipation, diarrhea, vomiting blood. 15:40 The symptoms are described as constant. Severity of pain: in the emergency department cp the pain is unchanged despite home interventions. Historical: - Allergies: 14:55 Amoxicillin; bp 14:55 Motrin; bp 14:55 PENICILLINS; bp - PMHx: 14:55 Asthma; GERD; bp - PSHx: 14:55 left knee; bp - Immunization history:: Adult Immunizations up to date. - Infectious Disease History:: Denies. - Social history:: Smoking status: unknown. ROS: 15:45 Constitutional: Positive for fever, poor PO intake, cp 15:45 Eyes: Negative for injury, pain, redness, and discharge, cp 15:45 Respiratory: Negative for cough, shortness of breath, wheezing, 15:45 Abdomen/GI: Positive for abdominal pain, nausea and vomiting, of the epigastric area and right upper quadrant, 15:45 ENT: Negative for drainage from ear(s), ear pain, sore throat, difficulty swallowing, cp difficulty handling secretions, 15:45 Cardiovascular: Negative for chest pain, 15:45 Back: Positive for radiated pain, 15:45 Neuro: Negative for altered mental status, headache, weakness, 15:45 All other systems are negative, Exam: 15:50 Constitutional: The patient appears in no acute distress, alert, awake, cp non-diaphoretic, non-toxic, well developed, well nourished, uncomfortable, 15:50 Head/Face: Normocephalic, atraumatic. cp 15:50 Eyes: Periorbital structures: appear normal, Conjunctiva: normal, no exudate, no injection, Sclera: no appreciated abnormality, Lids and lashes: appear normal, bilaterally, 15:50 ENT: External ear(s): are unremarkable, Nose: is normal, Mouth: Lips: moist, Oral mucosa: pink and intact, moist, Posterior pharynx: Airway: no evidence of obstruction, patent, 15:50 Chest/axilla: Inspection: normal, 15:50 Cardiovascular: Rate: tachycardic, Rhythm: regular, 15:50 Respiratory: the patient does not display signs of respiratory distress, Respirations: normal, no use of accessory muscles, no retractions, labored breathing, is not present, Breath sounds: are clear throughout, no decreased breath sounds, no stridor, no wheezing, 15:50 Abdomen/GI: Inspection: abdomen appears normal, Bowel sounds: active, all quadrants, Palpation: soft, in all quadrants, severe abdominal tenderness, in the epigastric area and right upper quadrant, rebound tenderness, is not appreciated, voluntary guarding, is elicited in the epigastric area and right upper quadrant, 15:50 Back: CVA tenderness, is absent, 15:50 Neuro: Orientation: to person, place \T\ time. Mentation: is normal, Motor: moves all fours, strength is normal, Sensation: is normal, 15:57 ECG was reviewed by the Attending Physician. cp Vital Signs: 14:54 BP 121 / 82; Pulse 133; Resp 20; Temp 98.8(O); Pulse Ox 99% ; Weight 86.18 kg; Height 5 rs5 ft. 8 in. ; 16:38 BP 118 / 78; Pulse 110; Resp 18; Pulse Ox 99% ; rs5 16:47 Temp 102.1(O); rs5 19:00 BP 124 / 87; Pulse 94; Resp 17; Pulse Ox 99% ; Pain 0/10; jj7 20:00 BP 113 / 68; Pulse 95; Resp 17; Pulse Ox 98% ; Pain 0/10; jj7 21:01 BP 109 / 68; Pulse 96; Resp 18; Temp 98.3; Pulse Ox 99% ; Pain 0/10; jj7 14:54 Body Mass Index 28.89 (86.18 kg, 172.72 cm) rs5 19:00 Pain Scale: Adult jj7 20:00 Pain Scale: Adult jj7 21:01 Pain Scale: Adult jj7 MDM: 14:52 Patient medically screened. 19:00 Data reviewed: vital signs, nurses notes, lab test result(s), EKG, radiologic studies, cp CT scan, ultrasound, and as a result, I will admit patient. 19:00 Differential diagnosis: appendicitis, cholecystitis, Cholelithiasis, non-specific abd cp pain, pancreatitis, Peptic Ulcer Disease, Perf. Duodenal Ulcer, Perf. Gastric Ulcer. Consideration of Admission/Observation Patient was admitted/placed on observation. Management of patient was discussed with the following: Waiter: DR Serrano concerning labs and findings of radiology studies. Will admit to his service. I considered the following discharge prescriptions or medication management in the emergency department Medications were administered in the Emergency Department. See MAR. Independent interpretation of the following test(s) in the Emergency Department EKG: See my EKG interpretation above. 03/03 15:37 Order name: Blood Culture Adult (2) 03/03 15:37 Order name: CBC with Diff; Complete Time: 17:56 03/03 17:18 Interpretation: Normal except: WBC 16.80; RBC 5.11; VALERIA% 91.5; LYM% 4.2; NEUT A 15.4. 03/03 15:37 Order name: CMP; Complete Time: 16:37 03/03 17:19 Interpretation: Normal except: NA 134; K 3.2; GLUC 116; CRE 1.09; GFR 72; AST < 10; cp GLOB 4.0; A/G 1.0. 03/03 15:37 Order name: Lactate w/ 2H reflex if indic.; Complete Time: 16:37 03/03 15:37 Order name: Protime (+inr); Complete Time: 16:37 03/03 15:37 Order name: Ptt, Activated; Complete Time: 16:37 03/03 15:37 Order name: Urinalysis w/ reflexes; Complete Time: 17:17 03/03 17:17 Interpretation: Normal except: [facility] Turbid; UPROT TRACE; UESTR 25. 03/03 15:37 Order name: Urine Culture 03/03 15:37 Order name: Test, Urine; Complete Time: 16:53 03/03 17:31 Order name: CBC Smear Scan; Complete Time: 17:56 EDMS 03/03 20:28 Order name: Basic Metabolic Panel EDMS 03/03 20:28 Order name: Basic Metabolic Panel EDMS 03/03 20:28 Order name: CBC with Automated Diff EDMS 03/03 20:28 Order name: CBC with Automated Diff EDMS 03/03 20:28 Order name: Lipase EDMS 03/03 20:28 Order name: Lipase EDMS 03/03 20:28 Order name: Liver (Hepatic) Function EDMS 03/03 20:28 Order name: Liver (Hepatic) Function EDMS 03/03 15:37 Order name: Chest Single View XRAY; Complete Time: 16:53 cp 10 16:53 Interpretation: Report review. cp 03/03 15:37 Order name: US Abdomen Limited: ruq; Complete Time: 16:53 cp 03/03 16:54 Order name: CT Abd/Pelvis - IV Contrast Only; Complete Time: 18:44 cp 03/03 15:37 Order name: EKG; Complete Time: 15:38 cp 03/03 15:37 Order name: Accucheck; Complete Time: 16:48 cp 10 15:37 Order name: Cardiac monitoring; Complete Time: 16:48 cp 10 15:37 Order name: EKG - Nurse/Tech; Complete Time: 16:48 cp 10 15:37 Order name: IV Saline Lock - Large Bore; Complete Time: 15:38 cp 10 15:37 Order name: Labs collected and sent; Complete Time: 15:38 cp 10 15:37 Order name: O2 Per Protocol; Complete Time: 15:38 cp 03/03 15:37 Order name: O2 Sat Monitoring; Complete Time: 15:38 cp 03/03 15:37 Order name: Vital Signs; Complete Time: 16:48 cp 10 15:37 Order name: NPO; Complete Time: 16:37 cp EC:57 Rate is 121 beats/min. Rhythm is regular. WA interval is normal. QRS interval is cp normal. QT interval is normal. T waves are Inverted in leads III, aVR. Interpreted by me. Reviewed by me. Administered Medications: 16:00 Drug: NS 0.9% IV 1000 ml IV at 1 bolus Per protocol; 1000 mL bolus Route: IV; Rate: 1 rs5 bolus; Site: right antecubital; 16:15 Follow up: Response: No adverse reaction rs5 16:00 Drug: morphine IVP or IV 4 mg IVP once over 4 mins Route: IVP; Infused Over: 4 mins; rs5 Site: right antecubital; 16:15 Follow up: Response: No adverse reaction; Pain is decreased rs5 16:00 Drug: Ondansetron IVP 4 mg IVP once; over 2 minutes Route: IVP; Site: right antecubital;rs5 16:40 Drug: NS 0.9% IV 1000 ml IV at 1 bolus Per protocol; 1000 mL bolus Route: IV; Rate: 1 rs5 bolus; Site: right antecubital; 17:00 Follow up: Response: No adverse reaction rs5 17:25 Drug: Acetaminophen PO 1000 mg PO once Route: PO; rs5 19:00 Follow up: Response: Temperature is decreased jj7 17:25 Drug: Rocephin IV 1 grams IV at calculated rate once; Given slow IV push per pharmacy rs5 instructions Route: IV; Rate: calculated rate; Site: right antecubital; 17:45 Follow up: Response: No adverse reaction rs5 17:25 Drug: Potassium PO Effervescent Tablet 50 mEq PO once; dissolve in 4 ounces of water or rs5 juice Route: PO; 17:45 Follow up: Response: No adverse reaction rs5 17:50 Drug: morphine IVP or IV 4 mg IVP once over 4 mins Route: IVP; Infused Over: 4 mins; rs5 Site: right antecubital; 18:15 Follow up: Response: No adverse reaction; Pain is decreased rs5 17:50 Drug: Ondansetron IVP 4 mg IVP once; over 2 minutes Route: IVP; Site: right antecubital;rs5 18:05 Follow up: Response: No adverse reaction; Nausea is decreased rs5 19:03 Drug: HYDROmorphone IVP 1 mg IVP once Route: IVP; Site: right antecubital; rs5 19:55 Follow up: Response: Marked relief of symptoms; Pain is decreased jj7 19:18 Drug: NS 0.9% IV 1000 ml IV at 1 bolus Per protocol; 1000 mL bolus Route: IV; Rate: 1 jj7 bolus; Site: right antecubital; 20:30 Follow up: IV Status: Completed infusion jj7 Disposition Summary: 03/03/24 18:51 Hospitalization Ordered Notes: Hospitalization Status: Inpatient Admission cp Provider: Jj Serrano cp Location: Telemetry/MedSurg (Inpatient) cp Condition: Stable cp Problem: new cp Symptoms: have improved cp Bed/Room Type: Standard cp Room Assignment: 231(03/03/24 20:36) lg3 Diagnosis - Other cholelithiasis without obstruction cp - Fever presenting with conditions classified elsewhere cp Forms: - Medication Reconciliation Form cp - SBAR form cp - Leadership Thank You Letter cp Addendum: 03/07/2024 20:19 Co-signature as Attending Physician, Jadiel Swain MD I reviewed the patient's care r t provided by the Advanced Practice Provider and agree with the diagnosis and treatment plan. Signatures: Dispatcher [employer] EDMS Charlie Nguyen PA PA cp Peltier, Brian, RN Rebecca Seymour RN RN lg3 Kinza Adkins RN RN jj7 Jadiel Swain MD MD rt Ritesh Moe RN RN rs5 Corrections: (The following items were deleted from the chart) 03/03 15:38 15:37 BLOOD CULTURE*+BA.LAB.BRZ ordered. EDMS EDMS 15:38 15:37 CBC+H.LAB.BRZ ordered. EDMS EDMS 15:38 15:38 COMPREHENSIVE METABOLIC PANEL+C.LAB.BRZ ordered. EDMS EDMS 15:38 15:38 LACTATE+C.LAB.BRZ ordered. EDMS EDMS 15:38 15:38 PROTIME (+INR)+COAG.LAB.BRZ ordered. EDMS EDMS 15:38 15:38 PTT, ACTIVATED+COAG.LAB.BRZ ordered. EDMS EDMS 15:38 15:38 Urinalysis+U.LAB.BRZ ordered. EDMS EDMS 15:38 15:38 Urine Culture+BA.LAB.BRZ ordered. EDMS EDMS 15:38 15:38 Test, Urine+UC.LAB.BRZ ordered. EDMS EDMS 20:36 18:51 cp lg3 03/04 21:02 21:01 Constitutional: Positive for fever, poor PO intake, cp cp
--- NOTE | 2024-03-03 18:51 | ER ---
Nurse's Notes [facility] Name: Kimber Layton Age: 23 yrs Sex: Female : 2000 Arrival Date: 03/03/2024 Time: 14:39 Bed 20 Private MD: Diagnosis: Other cholelithiasis without obstruction;Fever presenting with conditions classified elsewhere Presentation: 03/03 14:54 Chief complaint: Patient states: RUQ PAIN RADIATING TO BACK WITH N/V/D AND FEVER SINCE bp LAST PM. Coronavirus screen: At this time, the client does not indicate any symptoms associated with coronavirus-19. Ebola Screen: No symptoms or risks identified at this time. Initial Sepsis Screen: Does the patient meet any 2 criteria? HR > 90 bpm. No. Patient's initial sepsis screen is negative. Does the patient have a suspected source of infection? No. Patient's initial sepsis screen is negative. Risk Assessment: Do you want to hurt yourself or someone else? Patient reports no desire to harm self or others. Onset of symptoms was March 02, 2024 at 21:00. 14:54 Method Of Arrival: Ambulatory bp 14:54 Acuity: REYNA 3 bp Triage Assessment: 14:55 General: Appears uncomfortable, Behavior is cooperative, appropriate for age, anxious. bp Pain: Complains of pain in abdomen. Neuro: Reports headache. GI: Reports upper abdominal pain, cramping, diarrhea, nausea, vomiting. Historical: - Allergies: 14:55 Amoxicillin; bp 14:55 Motrin; bp 14:55 PENICILLINS; bp - PMHx: 14:55 Asthma; GERD; bp - PSHx: 14:55 left knee; bp - Immunization history:: Adult Immunizations up to date. - Infectious Disease History:: Denies. - Social history:: Smoking status: unknown. Screenin:47 [facility] ED Fall Risk Assessment (Adult) History of falling in the last 3 months, rs5 including since admission No falls in past 3 months (0 pts) Confusion or Disorientation No (0 pts) Intoxicated or Sedated No (0 pts) Impaired Gait No (0 pts) Mobility Assist Device Used No (0 pt) Altered Elimination No (0 pt) Score/Fall Risk Level 0 - 2 = Low Risk Oriented to surroundings, Maintained a safe environment. Abuse screen: Denies threats or abuse. Nutritional screening: No deficits noted. Tuberculosis screening: No symptoms or risk factors identified. Assessment: 14:47 General: Appears distressed, uncomfortable, Behavior is calm, cooperative. Pain: rs5 Complains of pain in abdomen Pain currently is 9 out of 10 on a pain scale. Quality of pain is described as aching, Is continuous. Neuro: Level of Consciousness is awake, alert, obeys commands, Oriented to person, place, time, situation. Cardiovascular: Patient's skin is warm and dry. Rhythm is sinus tachycardia. Respiratory: Airway is patent Respiratory effort is even, unlabored, Respiratory pattern is regular, symmetrical. GI: Abdomen is round non-distended, Bowel sounds present X 4 quads. Abd is soft and non tender. GI: Reports nausea. : No signs and/or symptoms were reported regarding the genitourinary system. EENT: No signs and/or symptoms were reported regarding the EENT system. EENT: No signs and/or symptoms were reported regarding the EENT system. Derm: Skin is intact, Skin is pink, warm \T\ dry. Musculoskeletal: Range of motion: intact in all extremities. 16:47 Reassessment: provider notified of latest temp. rs5 17:45 Pain: Complains of pain in abdomen Pain currently is 9 out of 10 on a pain scale. rs5 Quality of pain is described as aching, Is continuous. GI: Reports nausea. 17:46 Reassessment: provider notified pt is experiencing pain and nausea . rs5 18:05 Reassessment: Patient and/or family updated on plan of care and expected duration. Pain rs5 level reassessed. Patient is alert, oriented x 3, equal unlabored respirations, skin warm/dry/pink. Patient states feeling better. Patient states symptoms have improved. 18:39 Reassessment: No changes from previously documented assessment. rs5 19:00 Reassessment: Patient is alert, oriented x 3, equal unlabored respirations, skin jj7 warm/dry/pink. PT CRYING BECAUSE SHE IS NERVOUS ABOUT EVERYTHING AND DOES NOT WANT TO BE ALONE. PT REASSURED. PT STATES HER SISTER IS COMING TO BE WITH HER. General: Appears in no apparent distress. comfortable, Behavior is cooperative, appropriate for age, crying. Pain: Denies pain. Neuro: No deficits noted. GI: Reports PAIN AND NAUSEA RESOLVED. Vital Signs: 14:54 BP 121 / 82; Pulse 133; Resp 20; Temp 98.8(O); Pulse Ox 99% ; Weight 86.18 kg; Height 5 rs5 ft. 8 in. ; 16:38 BP 118 / 78; Pulse 110; Resp 18; Pulse Ox 99% ; rs5 16:47 Temp 102.1(O); rs5 19:00 BP 124 / 87; Pulse 94; Resp 17; Pulse Ox 99% ; Pain 0/10; jj7 20:00 BP 113 / 68; Pulse 95; Resp 17; Pulse Ox 98% ; Pain 0/10; jj7 21:01 BP 109 / 68; Pulse 96; Resp 18; Temp 98.3; Pulse Ox 99% ; Pain 0/10; jj7 14:54 Body Mass Index 28.89 (86.18 kg, 172.72 cm) rs5 19:00 Pain Scale: Adult jj7 20:00 Pain Scale: Adult jj7 21:01 Pain Scale: Adult jj7 ED Course: 14:41 Patient arrived in ED. rg4 14:47 Patient has correct armband on for positive identification. Placed in gown. Bed in low rs5 position. Call light in reach. Side rails up X2. 14:47 No provider procedures requiring assistance completed. rs5 14:52 Charlie Nguyen PA is PHCP. cp 14:52 Jadiel Swain MD is Attending Physician. cp 14:55 Triage completed. bp 14:55 Arm band placed on. bp 15:06 Ritesh Moe, RN is Primary Nurse. rs5 15:38 Initial lab(s) drawn, by md, sent to lab. Inserted saline lock: 20 gauge in right rc3 antecubital area, using aseptic technique. 16:23 Chest Single View XRAY In Process Unspecified. EDMS 16:25 US Abdomen Limited: ruq In Process Unspecified. EDMS 17:47 CT Abd/Pelvis - IV Contrast Only In Process Unspecified. EDMS 18:50 Jj Serrano MD is Hospitalizing Provider. cp 19:10 Provided Education on: USE OF CALL CHAMORRO. jj7 21:58 Patient admitted, IV remains in place. jj7 Administered Medications: 16:00 Drug: NS 0.9% IV 1000 ml IV at 1 bolus Per protocol; 1000 mL bolus Route: IV; Rate: 1 rs5 bolus; Site: right antecubital; 16:15 Follow up: Response: No adverse reaction rs5 16:00 Drug: morphine IVP or IV 4 mg IVP once over 4 mins Route: IVP; Infused Over: 4 mins; rs5 Site: right antecubital; 16:15 Follow up: Response: No adverse reaction; Pain is decreased rs5 16:00 Drug: Ondansetron IVP 4 mg IVP once; over 2 minutes Route: IVP; Site: right antecubital;rs5 16:40 Drug: NS 0.9% IV 1000 ml IV at 1 bolus Per protocol; 1000 mL bolus Route: IV; Rate: 1 rs5 bolus; Site: right antecubital; 17:00 Follow up: Response: No adverse reaction rs5 17:25 Drug: Acetaminophen PO 1000 mg PO once Route: PO; rs5 19:00 Follow up: Response: Temperature is decreased jj7 17:25 Drug: Rocephin IV 1 grams IV at calculated rate once; Given slow IV push per pharmacy rs5 instructions Route: IV; Rate: calculated rate; Site: right antecubital; 17:45 Follow up: Response: No adverse reaction rs5 17:25 Drug: Potassium PO Effervescent Tablet 50 mEq PO once; dissolve in 4 ounces of water or rs5 juice Route: PO; 17:45 Follow up: Response: No adverse reaction rs5 17:50 Drug: morphine IVP or IV 4 mg IVP once over 4 mins Route: IVP; Infused Over: 4 mins; rs5 Site: right antecubital; 18:15 Follow up: Response: No adverse reaction; Pain is decreased rs5 17:50 Drug: Ondansetron IVP 4 mg IVP once; over 2 minutes Route: IVP; Site: right antecubital;rs5 18:05 Follow up: Response: No adverse reaction; Nausea is decreased rs5 19:03 Drug: HYDROmorphone IVP 1 mg IVP once Route: IVP; Site: right antecubital; rs5 19:55 Follow up: Response: Marked relief of symptoms; Pain is decreased jj7 19:18 Drug: NS 0.9% IV 1000 ml IV at 1 bolus Per protocol; 1000 mL bolus Route: IV; Rate: 1 jj7 bolus; Site: right antecubital; 20:30 Follow up: IV Status: Completed infusion jj7 Medication: 15:07 VIS not applicable for this client. rs5 Outcome: 18:51 Decision to Hospitalize by Provider. cp 21:11 Admitted to Med/surg room 231, Report called to REPORT FAXED TO 2ND FLOOR. SANJUANA JEFFERS jj7 RECIEVED 21:11 Condition: improved 21:58 Admitted to Med/surg accompanied by tech, via wheelchair, jjKirstie 21:59 Patient left the ED. jj7 Signatures: Dispatcher [employer] EDMS Charlie Nguyen PA PA cp Garcia, Rubi rg4 Vini Foley RN RN Kinza Bender RN RN jRitesh Vuong RN RN rs5 Martha Youssef 3 Corrections: (The following items were deleted from the chart) 16:47 14:54 BP 121 / 82; Pulse 133bpm; Resp 20bpm; Pulse Ox 99%; Temp 97.7F; 86.18 kg; Height rs5 5 ft. 8 in.; BMI: 28.8; bp 19:53 19:00 Reassessment: Patient is alert, oriented x 3, equal unlabored respirations, skin jj7 warm/dry/pink. jj7 21:20 21:01 BP 113 / 68; Pulse 99bpm; Resp 16bpm; Pulse Ox 99%; Temp 98.3F; Pain 0/10, Adult; jj7 jj7
[2024-03-03] MEDS ORDERED: HYDROMORPHONE HCL 1 MG/ML INJ ONE (18:58)
[2024-03-03] MEDS: ONDANSETRON 4 MG/2 ML VIAL IV PRN (21:36)
[2024-03-03] MEDS: D5 0.45 NS 1,000 ML IV SCH (22:41)
[2024-03-03 22:42] VITALS: BMI 29.7
[2024-03-04] MEDS: METRONIDAZOLE 500mg IVPB 500 MG/100 ML BAG IV SCH (00:09)
[2024-03-04] MEDS: MORPHINE 4 MG/ML SYR IV PRN (01:00)
[2024-03-04] MEDS: ACETAMINOPHEN 500 MG TAB PO PRN (06:26)
[2024-03-04 07:55] LABS: ALT/SGPT 17 U/L (13-56); Albumin/Globulin Ratio 0.9 (1.1-1.8); Alkaline Phosphatase 49 U/L (45-117); Anion Gap 6.4 mEq/L (5.0-15.0); BUN Blood Urea Nitrogen 8 mg/dL (7-18); Bicarbonate 23 mEq/L (21-32); Bilirubin Total 0.3 mg/dL (0.2-1.0); Globulin 3.3 g/dL (2.3-3.5); Glomerular Filtration Rate 113 ml/min (=/>90); Glucose Level 130 mg/dL (74-106); Lipase 17 U/L (13-75); Potassium 3.4 mEq/L (3.5-5.1); Protein, Total 6.3 g/dL (6.4-8.2); Sodium Level 137 mEq/L (136-145)
[2024-03-04 07:56] LABS: AST/SGOT < 10 U/L (15-37); Bilirubin Direct < 0.2 mg/dL (0-0.2); Bilirubin Indirect, Calculated 0.1 mg/dL (0.2-0.8)
[2024-03-04 07:58] LABS: Absolute Lymphocytes (CBC) 0.8 K/uL (0.7-4.9); Absolute Monocytes 0.6 K/uL (0.1-1.3); Absolute Neutrophil 6.8 K/uL (1.8-8.0); Basophils % 0.2 % (0-1.3); Eosinophils % 0.1 % (0-4.4); Hematocrit 38.6 % (36.0-45.0); Hemoglobin 12.9 g/dL (12.0-15.0); Lymphocytes % 9.6 % (15.3-44.8); MCH 29.1 pg (27.0-35.0); MCHC 33.4 g/dL (32.0-36.0); MCV 87.1 fL (80-100); MPV 10.7 fL (7.6-11.3); Monocytes % 7.5 % (3.3-12.3); Neutrophils % 82.6 % (41.7-73.7); Platelets 154 thou/uL (152-406); RBC Red Blood Cell Count 4.43 M/uL (3.86-4.86); Red Cell Distribution Width 13.5 % (12.1-15.2)
[2024-03-04] MEDS: CEFTRIAXONE 1,000 MG in NA CHLORIDE 0.9% 50 ML IVPB SCH (09:35)
[2024-03-04] MEDS ORDERED: propofoL 200 MG/20 ML VIAL IV ONE (13:58)
[2024-03-04] MEDS ORDERED: FENTANYL CITR 100 MCG/2 ML ONE (13:58)
[2024-03-04] MEDS ORDERED: ROCURONIUM 50 MG/5 ML VIAL IV ONE (13:58)
[2024-03-04] MEDS ORDERED: MIDAZOLAM HCL 2 MG/2 ML INJ ONE (13:58)
[2024-03-04] MEDS ORDERED: ONDANSETRON 4 MG/2 ML VIAL ONE (13:58)
[2024-03-04] MEDS ORDERED: LIDOCAINE 2% MPF 5 ML VIAL ONE (13:58)
--- NOTE | 2024-03-04 14:12 | P.HP ---
Date of Service: 03/04/24 PC: This 23-year-old female presented emergency room with severe right upper quadrant abdominal pain for diagnosis and treatment. HPC: Patient has been feeling unwell, and started noticing she was having pain in the upper portion of her abdomen also little bit on the left side. Associated with nausea and vomiting. Has been having intermittent bouts of this she says since she was probably 15. PSHx: Negative PMHx: Denies any medical problems Social Hx: Allergic to amoxicillin and penicillins Sys R: No cough, wheeze, shortness of breath. No chest pain or palpitations. Denies any urinary complaints O/E: Awake alert vital signs are stable HEENT: Not jaundiced Chest: Chest movement equal bilaterally Abd: Patient is tender in the right upper quadrant, actually has a positive Munson sign [place]: Intact Data: Ultrasound and CT both document the patient has gallstones. Not a lot of inflammation seen. Impression: Patient has right upper quadrant abdominal pain consistent with Maria Ines cystitis with cholelithiasis, biliary colic. She has a positive Munson sign. Plan: I will taken the operating room for laparoscopic possible open cholecystectomy with a cholangiogram. The risks of this procedure have been discussed with the patient. The possibility of bleeding, infection, injury to bile ducts blood vessels and intestines have been since described. The possible need for an open and or further surgeries and procedures was discussed. She understands and wants to proceed.
[2024-03-04] MEDS: Ringers Lactate 1,000 ML IV ONE (14:13)
[2024-03-04] MEDS ORDERED: dexAMETHasone 10 MG/ML VIAL ONE (14:49)
--- NOTE | 2024-03-04 15:08 | EKG ---
Test Date: 2024-03-03 Test Time: 15:52:51 Tableman: ERENDIRA MEASUREMENT RESULTS: Intervals: Rate: 121 VA: 118 QRSD: 72 QT: 298 QTc: 423 [place]: P: 30 VA: 118 QRS: 58 T: -8 INTERPRETIVE STATEMENTS: Sinus tachycardia Nonspecific T wave abnormality Abnormal ECG Compared to ECG 05/29/2023 18:02:17 T-wave abnormality now present Sinus rhythm no longer present Electronically Signed On 03-04-24 15:06:00 CDT by Gilson Holbrook
--- NOTE | 2024-03-04 15:45 | P.OP ---
Preoperative diagnosis: cholelithiasis, biliary colic Postoperative diagnosis: Acute cholecystitis with cholelithiasis, biliary colic Primary procedure: Laparoscopic cholecystectomy Secondary procedure: Cholangiogram Other procedure(s): Giorgio block Anesthesia: General Estimated blood loss: Less than 10 cc Specimen: Gallbladder and contents Operative Technique: The patient brought the operating room placed supine on the table where after the induction of adequate general endotracheal anesthesia, the area of the abdomen was prepped with a DuraPrep solution, and she was draped in usual aseptic manner. Attention was turned towards the umbilicus. After injecting 1.25% Marcaine, a skin incision was made in this umbilical area. This is brought down through the skin and subcutaneous tissue. The Visiport was now used to carefully enter the peritoneal cavity and created pneumoperitoneum to approximately 12 mmHg. Under direct vision a 5 mm trocar was placed in the upper midline, and 2 other 5 mm trocars on the right lateral side of the abdomen with the patient now placed in reverse Trendelenburg and the table tilted to the left we could visualize the right upper quadrant. We could see a markedly distended and inflamed gallbladder underneath the liver. A grasper was placed on the fundus on the fundus of the gallbladder. Another down by Greenwood's pouch. Applying lateral traction we were able to dissect out and expose the cystic duct and artery. The cystic duct was clipped just between its junction with the gallbladder. An opening was made into the cystic duct through which we obtained a cholangiogram. The cholangiogram demonstrated good flow of contrast into the duodenum with no evidence of any extravasation or any leaks. No intraluminal stones were noted. The catheter was now removed. Clips were placed on the distal portion of the cystic duct which was fully transected. The cystic artery was identified and clipped in the usual manner. The gallbladder was now dissected free from the liver bed, placed into an Endo Catch, and brought out through the umbilical trocar site. Attention was turned back towards the anterior abdominal wall. A giorgio block was done with 0.25% Marcaine. Attention was then turned towards the fascial defect at the umbilicus. It was approximated using the Endo Close and an absorbable suture. At this point the pneumoperitoneum was collapsed, the trocars removed, and the sutures tied. [place] were then applied to the skin. At the end of the procedure she was in a stable condition was sent to the recovery room. Needle sponge instrument count were correct. No drains were placed. Complications: None Transferred to: Recovery Room Condition: Good
[2024-03-04] MEDS: EPINEPHRINE INH 0.5 ML VIAL IH ONE (15:55)
[2024-03-04] MEDS: SUGAMMADEX SODIUM 200 MG/2 ML VIAL IV ONE (15:59)
[2024-03-04] MEDS: NALOXONE 0.4 MG/ML VIAL ONE ×2 (16:05→16:15)
[2024-03-04] MEDS: LEVALBUTEROL 1.25 MG/3 ML NEB ONE (16:07)
[2024-03-04] MEDS: MEPERIDINE HCL 25 MG/ML SYR ONE (16:11)
[2024-03-04] MEDS: FENTANYL CITR 100 MCG/2 ML ONE (16:47)
[2024-03-04 17:28] LABS: Arterial Blood Carboxyhemoglob 0.9 % (0-1.5); Blood Gas Oxyhemoglobin 96.7 % (94-97); Blood Gas THB 13.3 g/dl (12-18); Blood O2 Saturation 99.3 % (92-98.5)
--- NOTE | 2024-03-04 17:38 | P.CNS ---
Date of Consult: 03/04/24 Reason for Consult: Medical management Requesting Physician: Jj Serrano Chief Complaint: Abdominal pain History of Present Illness: 23-year-old woman with a reported history of asthma presented to the emergency department with a complaint of abdominal pain associated with nausea and vomiting. Images-CT abdomen and pelvis and abdominal ultrasound done in the emergency department demonstrated multiple gallstones. Patient's symptoms suspected to be related to symptomatic cholelithiasis. She was admitted to general surgery Dr. Serrano service who evaluated her and performed laparoscopic cholecystectomy. Rapid response was called on her during her recovery period in the PACU. Wheezing and stridor reported by the OR staff. She was given a dose of Narcan and started on breathing treatment, and placed on 100% nonrebreather. She was obtunded and her mental status waxed and waned. Her mental status eventually stabilized, arterial blood gas on 100% nonrebreather did not show any hypoxia or hypercapnia. Hospitalist service consulted to assist with management in the postop period. Allergies amoxicillin Allergy (Verified 03/04/24 06:55) Unknown ibuprofen [From Motrin] Allergy (Verified 03/04/24 06:55) Unknown Penicillins Allergy (Verified 03/04/24 06:55) Unknown - Past Medical/Surgical History Diabetic: No -: Asthma -: None - Social History Smoking Status: Unknown if ever smoked Alcohol use: Yes CD- Drugs: Yes Caffeine use: No Place of Residence: Home Review of Systems is unable to be obtained (Due to altered mental status) Physical Examination Temp Pulse Resp BP Pulse Ox 97.4 F 67 18 121/73 98 03/04/24 17:17 03/04/24 17:17 03/04/24 17:17 03/04/24 17:17 03/04/24 12:00 General: Delirious, Obese HEENT: Atraumatic, PERRLA, Mucous membr. moist/pink, EOMI, Sclerae nonicteric Neck: Supple, JVD not distended Respiratory: Diminished, Expiratory wheezes (Mild bilateral expiratory wheezes) Cardiovascular: No edema, Regular rate/rhythm, Normal S1 S2 Capillary refill: <2 Seconds Gastrointestinal: Normal bowel sounds, Soft and benign, Non-distended Musculoskeletal: No swelling Integumentary: No rashes, No cyanosis Neurological: Normal strength at 5/5 x4 extr, Other (Confused) Lymphatics: No axilla or inguinal lymphadenopathy - Problems (1) Acute metabolic encephalopathy Current Visit: Yes Status: Acute (2) Symptomatic cholelithiasis Current Visit: Yes Status: Acute (3) Acute asthma Current Visit: Yes Status: Acute Conclusions/Impression: Admit patient to the ICU for close monitoring Scheduled bronchodilators Narcan as needed for altered mental status Oxygen by nasal cannula and titrate as needed. Will give a dose of IV steroid for asthma exacerbation. Monitor and correct electrolytes as needed. Neurochecks. Continue IV antibiotics for now. General surgery-Dr. Serrano to follow.
[2024-03-04] MEDS: ALBUTEROL 2.5 MG/3 ML NEB SOL NEB SCH (19:07)
[2024-03-04] MEDS: METHYLPREDNISOLONE 40 MG INJ IV ONE (19:21)
[2024-03-04 19:26] LABS: Phosphorus 1.5 mg/dL (2.5-4.9)
--- NOTE | 2024-03-04 20:52 | RAD REPORT ---
EXAM DESCRIPTION: RAD - Cholangiogram Oper-Xray Or - 03/04/2024 4:23 pm CLINICAL HISTORY: LAP TRINO W/ IOC COMPARISON: None available. FINDINGS: 8 images were sent to PACS, documenting fluoroscopy use during an intraoperative cholangio gram procedure. No radiologist was available for the procedure, nor will any image interpretation he provided. Please refer to the procedural report for additional details. Fluoroscopy time: 0.2 Minutes. IMPRESSION: Documentation of fluoroscopy utilization as above.
[2024-03-04] MEDS: POTASSIUM PHOS IN 0.9 % NACL 15 MMOL/250 ML BAG IV ONE (22:23)
[2024-03-05] MEDS: KETOROLAC 30 MG/ML INJ IV ONE (03:19)
[2024-03-05 05:03] LABS: Absolute Lymphocytes (CBC) 0.4 K/uL (0.7-4.9); Absolute Monocytes 0.2 K/uL (0.1-1.3); Absolute Neutrophil 5.5 K/uL (1.8-8.0); Hematocrit 36.9 % (36.0-45.0); Hemoglobin 12.4 g/dL (12.0-15.0); Lymphocytes % 6.6 % (15.3-44.8); MCH 29.4 pg (27.0-35.0); MCHC 33.6 g/dL (32.0-36.0); MCV 87.4 fL (80-100); MPV 10.8 fL (7.6-11.3); Monocytes % 2.6 % (3.3-12.3); Nucleated Red Blood Cells % 0.1 % (0-0); Platelets 155 thou/uL (152-406); RBC Red Blood Cell Count 4.22 M/uL (3.86-4.86); Red Cell Distribution Width 13.8 % (12.1-15.2)
[2024-03-05 05:15] LABS: Neutrophils % 90.8 % (41.7-73.7)
[2024-03-05 05:22] LABS: Potassium 3.4 mEq/L (3.5-5.1)
[2024-03-05 05:23] LABS: Anion Gap 8.4 mEq/L (5.0-15.0); Phosphorus 2.4 mg/dL (2.5-4.9)
[2024-03-05] MEDS: ALBUTEROL 2.5 MG/3 ML NEB SOL IH SCH (08:33)
[2024-03-05] MEDS ORDERED: ALBUTEROL 2.5 MG/3 ML NEB SOL NEB PRN (08:37)
--- NOTE | 2024-03-05 09:15 | P.PN ---
Subjective Date of Service: 03/05/24 Chief Complaint: Abdominal pain Patient is awake and alert, stable on room. She has been utilizing IV morphine for pain control. No recorded fever Leukocytosis resolved Physical Examination - Vital Signs Temperature: 98.4 F Blood Pressure: 96/48 Pulse: 68 Respirations: 13 Pulse Ox (%): 100 - Physical Exam Other Physical/Emotional Findings: General: Alert and oriented x3, NAD,. HEENT: Conjunctiva not pale, anicteric sclera. Neck: Supple, no elevated JVD. Heart: Heart sounds 1 and 2 normal, regular rhythm, normal rate, no pedal edema. Lungs: Clear to auscultation bilaterally, adequate breath sounds bilaterally, no rhonchi or crackles. Abdomen: Soft, nondistended, moderately tender, normal bowel sounds. Extremities: No tenderness, no deformity. Skin: Normal skin turgor, no rash, no nodules or ulcers. Neuro: No focal motor deficit. Normal speech. Psychiatry: Normal mood, no agitation. Assessment And Plan - Current Problems (Diagnosis) (1) Acute metabolic encephalopathy Current Visit: Yes Status: Acute (2) Symptomatic cholelithiasis Current Visit: Yes Status: Acute (3) Acute asthma Current Visit: Yes Status: Acute - Plan Patient has clinically improved and stable on room air. Continue bronchodilators as needed for asthma Discontinue IV steroid Leukocytosis resolved IV hydration Surgery Dr. Serrano to follow. Analgesics as needed Monitor and replace electrolytes as needed. DVT prophylaxis with Lovenox Increase activity as tolerated.
[2024-03-05 10:28] VITALS: O2SAT 96
[2024-03-05] MEDS: HYDROCODONE/APAP 7.5/325 MG TAB PO PRN (11:36)
[2024-03-05] MEDS: DULERA 200/5 (MOMETASONE/FORMOTEROL) INHALER IH SCH (11:45)
[2024-03-05 12:03] VITALS: TEMP 97.7
--- NOTE | 2024-03-05 12:20 | P.CNS ---
Date of Consult: 03/05/24 Reason for Consult: Respiratory distress Chief Complaint: Abdominal pain History of Present Illness: Patient is 23 years of age with a history of asthma respiratory distress shortly after laparoscopic cholecystectomy developed wheezing and stridor and was anderson sferred to the ICU and she also had altered mental status currently she is doing much better heart oriented responsive cooperative uses albuterol on intermittent basis usually during the wintertime doing better Allergies amoxicillin Allergy (Verified 03/04/24 06:55) Unknown ibuprofen [From Motrin] Allergy (Verified 03/04/24 06:55) Unknown Penicillins Allergy (Verified 03/04/24 06:55) Unknown - Past Medical/Surgical History Diabetic: No -: Asthma -: None - Social History Smoking Status: Unknown if ever smoked Alcohol use: Yes CD- Drugs: Yes Caffeine use: No Place of Residence: Home Review of Systems Unremarkable Respiratory: Shortness of Breath Gastrointestinal: Abdominal Pain Physical Examination Temp Pulse Resp BP Pulse Ox 97.7 F 74 21 H 118/62 96 03/05/24 11:00 03/05/24 11:00 03/05/24 11:00 03/05/24 11:00 03/05/24 11:00 General: Alert, Oriented x3 Respiratory: Expiratory wheezes Cardiovascular: Regular rate/rhythm, Normal S1 S2 Gastrointestinal: Normal bowel sounds, Soft and benign, Non-distended Musculoskeletal: No clubbing, No swelling - Problems (1) Asthma exacerbation Current Visit: Yes Status: Acute Plan: Patient is 23 years of age developed respiratory distress shortly after laparoscopic cholecystectomy possibly an asthma exacerbation added Dulera inhaler bronchodilators as needed patient has developed a mild respiratory alkalosis medication list labs all reviewed to go home on Dulera Qualifiers: Asthma severity: unspecified severity
--- NOTE | 2024-03-05 14:35 | P.PN ---
Date of Service: 03/05/24 S: Patient feels a lot better today, still having no pain. Does not member much as yesterday's episodes. No trouble with her bleeding breathing today. Pain appears to be well-controlled O: Vital signs are stable expected incisional tenderness A: Surgically stable P: Patient may be discharged directly home. She will call my office for an appointment on Sunday when we will remove her adam. Should she have any questions or problems, she knows to go to the emergency room. Her respiratory issues have been addressed by the medical team. Discharge home. A prescription for pain medicine has been called inErika 7.5/325 1 p.o. every 8 hours as needed pain with no refills.
[2024-03-05] MEDS: HYDROCODONE/APAP 7.5/325 MG TAB PO ONE (15:29)
[2024-03-05 16:06] VITALS: BP 102/67
== END 2024-03-05 15:50 | disposition home or self-care (01) | DRG 853 ==
LOC: ER 14:39 → ERHOLD 20:22 → 2ND 21:38 → 3RD-ICU 03-04 18:20
PROVIDERS: ADMIT Surgery; ATTEND Surgery
PROC: BF121ZZ Fluoroscopy of Gallbladder using Low Osmolar Contrast (ICD-10-PCS; 2024-03-04)
PROC: 4A033R1 Measurement of Arterial Saturation, Peripheral, Percutaneous Approach (ICD-10-PCS; 2024-03-04)
PROC: 0FT44ZZ Resection of Gallbladder, Percutaneous Endoscopic Approach (ICD-10-PCS; principal; 2024-03-04 15:00)
DX: A41.9 Sepsis, unspecified organism (principal); G93.41 Metabolic encephalopathy; K80.00 Calculus of gallbladder with acute cholecystitis without obstruction; J45.901 Unspecified asthma with (acute) exacerbation; K21.9 Gastro-esophageal reflux disease without esophagitis; Z88.0 Allergy status to penicillin; Z88.5 Allergy status to narcotic agent; Z88.1 Allergy status to other antibiotic agents
CPT/HCPCS: 36415; 36600; 71045; 74177; 74300; 76705; 80048; 80053; 80076; 81001; 81025; 82805; 83605; 83690; 83735; 84100; 85025; 85610; 85730; 87040; 87086; 87088; 88304; 93005; 94010; 94640; 96361; 96374; 96375; 99285; J0696; J1100; J1170; J2001; J2175; J2250; J2310; J2405; J2704; J2920; J3010; J3535; J7030; J7120; J7613; J7614; J7799; Q9967

== ENCOUNTER 2024-05-12 10:00 | Emergency (ER) | payer SELFPAY ==
[2024-05-12] MEDS ORDERED: IBUPROFEN 200 MG TAB PO ONE (10:29)
[2024-05-12] MEDS ORDERED: IBUPROFEN 400 MG TAB ONE (10:29)
[2024-05-12] MEDS ORDERED: HYDROCODONE/APAP 5/325 MG TAB ONE (10:29)
--- NOTE | 2024-05-12 11:11 | RAD REPORT ---
EXAM DESCRIPTION: RAD - Wrist Right 3 View - 05/12/2024 10:56 am CLINICAL HISTORY: PAIN COMPARISON: No comparisons TECHNIQUE: Right wrist, 3 views. FINDINGS: No acute fracture. There is no dislocation or periosteal reaction noted. No other signific ant bony finding. No foreign body or other soft tissue abnormality. IMPRESSION: Negative right wrist examination.
--- NOTE | 2024-05-12 11:42 | ER ---
Nurse's Notes [facility] Name: Kimber Layton Age: 23 yrs Sex: Female : 2000 Arrival Date: 05/12/2024 Time: 10:00 Bed 12 Private MD: Diagnosis: Other specified sprain of right wrist Presentation: 05/12 10:12 Chief complaint: Patient states: was play fighting and heard wrist pop last night, has ll1 been hurting ever since. Coronavirus screen: Vaccine status: Patient reports being unvaccinated. Ebola Screen: Patient negative for fever greater than or equal to 101.5 degrees Fahrenheit, and additional compatible Ebola Virus Disease symptoms Patient denies exposure to infectious person. Patient denies travel to an Ebola-affected area in the 21 days before illness onset. No symptoms or risks identified at this time. Initial Sepsis Screen: Does the patient meet any 2 criteria? No. Patient's initial sepsis screen is negative. Does the patient have a suspected source of infection? No. Patient's initial sepsis screen is negative. Risk Assessment: Do you want to hurt yourself or someone else? Patient reports no desire to harm self or others. Onset of symptoms was May 11, 2024. 10:12 Method Of Arrival: Ambulatory ll1 10:12 Acuity: REYNA 4 ll1 Triage Assessment: 10:13 General: Appears uncomfortable, Behavior is calm, cooperative. Pain: Complains of pain ll1 in right wrist Pain currently is 8 out of 10 on a pain scale. Neuro: Level of Consciousness is awake, alert, obeys commands, Oriented to person, place, time, situation. Cardiovascular: Patient's skin is warm and dry. Respiratory: Airway is patent Respiratory effort is even, unlabored, Respiratory pattern is regular, symmetrical. GI: No signs and/or symptoms were reported involving the gastrointestinal system. Abdomen is flat, non-distended. : No signs and/or symptoms were reported regarding the genitourinary system. Derm: No signs and/or symptoms reported regarding the dermatologic system. Musculoskeletal: Reports pain in right wrist. 12:02 Injury Description: blunt. 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 - Infectious Disease History:: Denies. - Social history:: Smoking status: Patient denies any tobacco usage or history of. Patient uses alcohol, occasionally. Patient/guardian denies using street drugs. Screenin:38 [facility] ED Fall Risk Assessment (Adult) History of falling in the last 3 months, ll1 including since admission No falls in past 3 months (0 pts) Confusion or Disorientation No (0 pts) Intoxicated or Sedated No (0 pts) Impaired Gait No (0 pts) Mobility Assist Device Used No (0 pt) Altered Elimination No (0 pt) Score/Fall Risk Level 0 - 2 = Low Risk Maintained a safe environment, Hourly rounding (assess needs \T\ fall precautionary measures) done. Abuse screen: Denies threats or abuse. Nutritional screening: No deficits noted. Tuberculosis screening: No symptoms or risk factors identified. Assessment: 10:35 General: Appears uncomfortable, Behavior is calm, cooperative, appropriate for age. ll1 Pain: Complains of pain in right wrist. Musculoskeletal: Circulation, motion, and sensation intact. Capillary refill < 3 seconds, Reports pain in right wrist. Vital Signs: 10:11 BP 112 / 73; Pulse 90; Resp 17; Temp 98.4(O); Pulse Ox 99% on R/A; Weight 79.38 kg; ll1 Height 5 ft. 8 in. ; Pain 8/10; 10:11 Body Mass Index 26.61 (79.38 kg, 172.72 cm) ll1 10:11 Pain Scale: Adult ll1 ED Course: 10:01 Patient arrived in ED. mr 10:03 Altagracia Fletcher PA-C is PHCP. sb4 10:03 Francia Pruitt MD is Attending Physician. sb4 10:13 Triage completed. ll1 10:13 Arm band placed on left wrist. ll1 10:38 Patient has correct armband on for positive identification. Bed in low position. Call ll1 light in reach. Provided Education on: ER procedures and process. Cardiac monitoring not applicable on this patient. 10:58 Wrist Right 3 View XRAY In Process Unspecified. EDMS 12:00 No provider procedures requiring assistance completed. Patient did not have IV access tl4 during this emergency room visit. Administered Medications: 10:34 Drug: Ibuprofen PO 600 mg PO once Route: PO; ll1 11:58 Follow up: Response: No adverse reaction tl4 10:34 Drug: HYDROcodone-acetaminophen PO 5 mg-325 mg 1 tabs PO once {Note: RASS 0. Sister ll1 driving home.} Route: PO; 11:58 Follow up: Response: No adverse reaction tl4 Medication: 10:38 VIS not applicable for this client. ll1 Outcome: 11:42 Discharge ordered by . sb4 12:01 Discharged to home ambulatory, tl4 12:01 Condition: stable 12:01 Discharge instructions given to patient, Instructed on discharge instructions, follow up and referral plans. medication usage, splint care Demonstrated understanding of instructions, follow-up care, medications, splint care, 12:02 Patient left the ED. tl4 Signatures: Dispatcher [employer] EDMS Lucia Redding, Reg Reg mr Eric Zelaya, RN RN ll1 Altagracia Fletcher PA-C PAGrant sb4 Christoph Jaimes RN RN tl4
--- NOTE | 2024-05-12 11:43 | EDPHYS ---
Physician Documentation [facility] Name: Kimber Layton Age: 23 yrs Sex: Female : 2000 Arrival Date: 05/12/2024 Time: 10:00 Bed 12 Private MD: ED Physician Francia Pruitt HPI: 05/12 10:20 This 23 yrs old Female presents to ER via Ambulatory with complaints of Wrist Injury. sb4 10:20 The patient or guardian reports injury, pain. The complaints affect the right wrist sb4 diffusely. Context: The problem was sustained at home, resulted from "play fighting". Onset: The symptoms/episode began/occurred last night. Modifying factors: The symptoms are alleviated by holding still, the symptoms are aggravated by movement. Associated signs and symptoms: The patient has no apparent associated signs or symptoms. Compartment Syndrome negative for numbness, tingling. The patient has not experienced similar symptoms in the past. The patient has not recently seen a physician. 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 - Infectious Disease History:: Denies. - Social history:: Smoking status: Patient denies any tobacco usage or history of. Patient uses alcohol, occasionally. Patient/guardian denies using street drugs. ROS: 10:20 Constitutional: Negative for fever, chills, and weight loss, sb4 10:20 MS/extremity: Positive for injury or acute deformity, pain, of the right wrist, 10:20 All other systems are negative, Exam: 10:20 Hand exam: ROM: limited active range of motion due to pain, limited passive range of sb4 motion due to pain, Circulation is intact in all extremities. Pulses: are normal with no appreciated deficits, Perfusion: the extremity is normally perfused throughout, sensation intact. Compartment Syndrome exam of affected extremity: severe pain, numbness, tingling, sensation decreased, pale extremity, weak pulse, 10:20 Constitutional: This is a well developed, well nourished patient who is awake, alert, and in no acute distress. Head/Face: Normocephalic, atraumatic. Eyes: Extra-ocular motions intact. Periorbital areas with no swelling, redness, or edema. ENT: Mucous membranes moist. Vital Signs: 10:11 BP 112 / 73; Pulse 90; Resp 17; Temp 98.4(O); Pulse Ox 99% on R/A; Weight 79.38 kg; ll1 Height 5 ft. 8 in. ; Pain 8; 10:11 Body Mass Index 26.61 (79.38 kg, 172.72 cm) ll1 10:11 Pain Scale: Adult ll1 MDM: 10:17 Patient medically screened. sb4 11:42 Data reviewed: vital signs, nurses notes, radiologic studies, and as a result, I will sb4 discharge patient. Counseling: I had a detailed discussion with the patient and/or guardian regarding the historical points, exam findings, and any diagnostic results supporting the discharge/admit diagnosis, radiology results, to return to the emergency department if symptoms worsen or persist or if there are any questions or concerns that arise at home. 05/12 10:20 Order name: Wrist Right 3 View XRAY; Complete Time: 11:40 sb4 05/12 10:20 Order name: Ice pack; Complete Time: 10:27 sb4 05/12 11:42 Order name: Splint - Wrist: preformed; Complete Time: 11:50 sb4 Administered Medications: 10:34 Drug: Ibuprofen PO 600 mg PO once Route: PO; ll1 11:58 Follow up: Response: No adverse reaction tl4 10:34 Drug: HYDROcodone-acetaminophen PO 5 mg-325 mg 1 tabs PO once {Note: RASS 0. Sister ll1 driving home.} Route: PO; 11:58 Follow up: Response: No adverse reaction tl4 Disposition Summary: 05/12/24 11:42 Discharge Ordered Notes: Location: Home sb4 Problem: new sb4 Symptoms: have improved sb4 Condition: Stable sb4 Diagnosis - Other specified sprain of right wrist sb4 Followup: sb4 - With: Private Physician - When: As needed - Reason: Recheck today's complaints, Re-evaluation by your physician Discharge Instructions: - Discharge Summary Sheet sb4 - Wrist Sprain, Adult sb4 Forms: - Patient Portal Instructions sb4 - Leadership Thank You Letter sb4 Signatures: Dispatcher [employer] EDMS Eric Zelaya, RN RN ll1 Altagracia Fletcher PA-C PA-C sb4 Christoph Jaimes RN tl4 Corrections: (The following items were deleted from the chart) 10:20 10:20 Wrist Right 3 View+RAD.RAD.[email or web address] ordered. EDMS EDMS
[2024-05-12 12:14] VITALS: BP 112/73; TEMP 98.4; O2SAT 99
--- OUTSIDE RECORDS SUMMARY | 2024-05-13 13:48 | XMS REPORT | Continuity of Care Document ---
Author Name Unknown Address [address] [facility] [address] [place] [address] [facility] Address [address] [facility] [address] [place] [address] Care Team Providers Care Retail Clerk Name Role Phone PCP, PATIENT DOES NOT HAVE A Primary Care Physic DR SANTA Carcamo Attending Clinician UnavailDR CUONG Loo Attending Clinician Unavailable ALFREDO COHEN Attending Clinician Unavailable Alfredo Godinez Attending Clinician [phone] Doctor Unassigned, [place] Attending Clinician U NADINE Swain Attending Clinician Unavailable Nadine Juarez Attending Clinician KATHI RODRÍGUEZ Attending Clinician UnavailKathi Hart DO Attending Clinician [phone] PROVIDER, ED TEMP Attending Clinician UnavailDR SANTA Kaplan Admitting Clinician UnavailDR CUONG Loo Admitting Clinician Unavailable ALFREDO COHEN Admitting Clinician Unavailable NADINE ESCOBEDO Admitting Clinician Unavailable Payers Payer Name Policy Type Policy Number Effective Date Expirati on Date Source Problems Condition Name Condition Details Condition Category Status Onset Date Resolution Date Last Treatment Date Treating Clinician Comments Source No known active problems No known active problems Disease [facility] Allergies, Adverse Reactions, Alerts Allergy Name Allergy Type Status Severity Reaction(s) Onset Date Inactive Date Treating Clinician Comments Source PENICILL INS Drug Class Active Unknown-Cmnt 2020-09 00:00: 00 [facility] Penicill ins Propensi ty to adverse reaction s Active Unknown - See comments 2020-09 00:00: 00 Childhood allergy-t old not to take by parents [facility] Penicill ins Propensi ty to adverse reaction s Active Unknown - See comments 2020-09 00:00: 00 Childhood allergy-t old not to take by parents [facility] ONION EXTRACT FA Active UNKNOWN [place] [facility] No Known Allergie s MA Active UNKNOWN [place] [facility] NO KNOWN ALLERGIE S Drug Class Active [facility] penicill in DA Active MILD Rash; Rash [place] [facility] Social History Social Habit Start Date Stop Date Quantity Comments Source Exposure to SARS-CoV-2 (event) 2022-09-08 00:00:00 2022-09-18 21:03:00 Not sure [facility] Sex Assigned At 2000 00:00:00 2000 00:00:00 [facility] Smoking Status Start Date Stop Date Source Tobacco smoking consumption unknown [facility] Medications Ordered Medication Name Filled Medication Name [...] HEENT
D uration of Therapy: 7 days [facility] benzonatate (TESSALON PERLES) capsule 200 mg 2021-09 05:30: 00 09-19 04:47 :00 No 200mg 200 mg, Oral, ONCE, 1 dose, On Sun09/18/22 at 2330, [facility] predniSONE (DELTASONE) tablet 40 mg 2021-09 04:45: 00 09-19 04:46 :00 No 40mg 40 mg, Oral, ONCE, 1 dose, On Sun09/18/22 at 2245, [facility] ondansetron (ZOFRAN (PF)) injection 4 mg 2021-09 04:00: 00 09-19 03:25 :00 No 4mg 4 mg, Slow IV Push, ONCE, 1 dose, On Sun09/18/22 at 2200, [facility] NaCl 0.9% (NS) bolus infusion 1,000 mL 2021-09 04:00: 00 09-19 05:31 :00 No 1000mL at 999 mL/hr, 1,000 mL, IV Infusion, ONCE, 1 dose, On Sun09/18/22 at 2200, [facility] benzonatate 200 mg capsule 2021-09 00:00: 00 Yes [id number] 200mg Take 1 capsule by mouth 3 (three) times daily as needed for Cough. [facility] doxycycline hyclate 100 mg capsule 2021-09 00:00: 00 09-26 05:59 :00 No [id number] 100mg Take 1 capsule by mouth in the morning and 1 capsule in the evening. Do all this for 7 days. [facility] predniSONE 20 mg tablet 2021-09 00:00: 00 09-24 05:59 :00 No [id number] 40mg Take 2 tablets by mouth in the morning for 5 days. [facility] activated charcoal-so rbitoL (ACTIDOSE/S ORBITAL) 25 gram/120 mL suspension 25 g 10-04 19:00: 00 10-04 18:43 :00 No 25g 25 g, Oral, ONCE, 1 dose, On Sun10/04/21 at 1300, [facility] predniSONE 10 mg tablet 2020-09 00:00: 00 09-14 05:59 :00 No [id number] 50mg Take 5 tablets by mouth daily for 4 days. [facility] albuterol (PROVENTIL) 2.5 mg /3 mL (0.083 %) nebulizer solution 5 mg 2020-09 16:30: 00 09-08 15:33 :00 No 5mg 5 mg, Inhalation , ONCE, 1 dose, On Amelia 09/08/21 at 1030, [facility] predniSONE (DELTASONE) tablet 50 mg 2020-09 16:30: 00 09-08 15:41 :00 No 50mg 50 mg, Oral, ONCE, 1 dose, On Amelia 09/08/21 at 1030, [facility] ipratropium (ATROVENT) 0.02 % nebulizer solution 0.5 mg 2020-09 15:45: 00 09-08 14:47 :00 No .5mg 0.5 mg, Inhalation , ONCE, 1 dose, On Amelia 09/08/21 at 0945, [facility] albuterol (PROVENTIL) 2.5 mg /3 mL (0.083 %) nebulizer solution 5 mg 2020-09 15:45: 00 09-08 14:47 :00 No 5mg 5 mg, Inhalation , ONCE, 1 dose, On Amelia 09/08/21 at 0945, [facility] ondansetron (ZOFRAN-ODT ) disintegrat ing tablet 4 mg 2020-09 15:30: 00 09-08 14:17 :00 No 4mg 4 mg, Oral, ONCE, 1 dose, On Amelia 09/08/21 at 0930, Routine [facility] ondansetron (ZOFRAN ODT) 4 mg disintegrat ing tablet 2020-09 00:00: 00 Yes [id number] 4mg Take 1 tablet by mouth every 8 (eight) hours as needed for Nausea and Vomiting (N/V). [facility] Vital Signs Vital Name Observation Time Observation Value Comments S ourkathrine Height 2023-12-31 14:53:32 068 Inches Body Weight [...] Systolic blood pressure 2022-09-19 04:00:00 115 mm[Hg] [facility] Diastolic blood pressure 2022-09-19 04:00:00 60 mm[Hg] [facility] Heart rate 2022-09-19 04:00:00 66 /min [facility] Respiratory rate 2022-09-19 04:00:00 18 /min [facility] Oxygen saturation in Arterial blood by Pulse oximetry 2022-09-19 04:00:00 97 /min [facility] Body temperature 2022-09-19 03:06:00 37.39 Tiara [facility] Body height 2022-09-19 03:06:00 172.7 cm [facility] Body weight 2022-09-19 03:06:00 81.647 kg [facility] BMI 2022-09-19 03:06:00 27.37 kg/m2 [facility] Systolic blood pressure 2021-10-04 16:49:00 133 mm[Hg] [facility] Diastolic blood pressure 2021-10-04 16:49:00 96 mm[Hg] [facility] Heart rate 2021-10-04 16:49:00 112 /min [facility] Respiratory rate 2021-10-04 16:49:00 22 /min [facility] Body height 2021-10-04 16:49:00 165.1 cm [facility] Body weight 2021-10-04 16:49:00 79.379 kg [facility] BMI 2021-10-04 16:49:00 29.12 kg/m2 [facility] Oxygen saturation in Arterial blood by Pulse oximetry 2021-10-04 16:49:00 100 /min [facility] Systolic blood pressure 2021-09-08 16:36:51 122 mm[Hg] [facility] Diastolic blood pressure 2021-09-08 16:36:51 60 mm[Hg] [facility] Heart rate 2021-09-08 16:36:51 94 /min [facility] Body temperature 2021-09-08 16:36:51 36.78 Tiara [facility] Respiratory rate 2021-09-08 16:36:51 18 /min [facility] Oxygen saturation in Arterial blood by Pulse oximetry 2021-09-08 16:36:51 99 /min [facility] Body height 2021-09-08 13:52:00 172.7 cm [facility] Body weight 2021-09-08 13:52:00 88.451 kg [facility] BMI 2021-09-08 13:52:00 29.65 kg/m2 [facility] BP Systolic 2021-07-27 12:41:[address] [facility] BP Diastolic 2021-07-27 12:41:[address] [facility] BMI (Body Mass Index) 2021-07-27 12:41:[address] [facility] Height 2021-07-27 12:41:17 [facility] Weight Measured 2021-07-27 12:41:[address] [facility] Body Temperature 2021-07-27 12:41:[address] [facility] Heart Rate 2021-07-27 12:41:17 [facility] Respiratory Rate 2021-07-27 12:41:[address] [facility] O2 % BldC Oximetry 2021-07-27 12:41:[address] [facility] Procedures Procedure Date / Time Performed Performing Clinician Source XR CHEST 1 VW 2022-09-19 03:47:07 Alfredo Cohen [facility] URINALYSIS 2022-09-19 03:33:00 Alfredo Cohen [facility] POCT TEST 2022-09-19 03:33:00 Blanka Cohen [facility] TROPONIN I 2022-09-19 03:25[facility]OL[facility] ([id number][facility] 2022-09-19 03:25:00 Alfredo Cohen [facility] CBC WITH DIFF 2022-09-19 03:25:00 Alfredo Cohen [facility] RAPID INFLUENZA A/B 2022-09-19 03:25:00 Blanka Cohen [facility] N-TERMINAL PRO-BNP 2022-09-19 03:25:00 Renetta Cohen [facility] COVID-19 (ID NOW RAPID TESTING) 2022-09-19 03:25:00 Alfredo Cohen [facility] EXTERNAL PROVIDER RECORDS 2021-10-19 06:01:00 Doctor Unassigned, [place] [facility] CT HEAD WO CONTRAST 2021-10-04 18:04:08 Nadine Escobedo [facility] XR CHEST 1 VW 2021-10-04 18:03:00 Nadine Escobedo [facility] URINE DRUG (IMMUNOASSAY) - COMPREHENSIVE DRUG SCREEN 2021-10-04 17:40:00 Nadine Escobedo [facility] CREATINE KINASE 2021-10-04 17:35:00 Nadine Escobedo [facility] LIPASE 2021-10-04 17:35:00 Nadine Escobedo [facility] TROPONIN I 2021-10-04 17:35:00 Nadine Escobedo [facility] COMP. METABOLIC PANEL ([id number]) 2021-10-04 17:35:00 Nadine Escobedo [facility] SALICYLATE 2021-10-04 17:35:00 Nadine Escobedo [facility] ETHANOL 2021-10-04 17:35:00 Nadine Escobedo [facility] CBC WITH DIFF 2021-10-04 17:35:00 Nadine Escobedo [facility] URINALYSIS 2021-10-04 17:35:00 Nadine Escobedo [facility] COVID-19 (ID NOW RAPID TESTING) 2021-10-04 17:35:00 Nadine Escobedo [facility] POCT TEST 2021-10-04 17:34:00 Nadine Escobedo [facility] NOTICE OF PRIVACY PRACTICES 2021-09-08 13:48:15 Doctor Unassigned, [place] [facility] CONSENT/REFUSAL FOR DIAGNOSIS AND TREATMENT 2021-09-08 13:48:03 Doctor Unassigned, [place] [facility] Encounters Start Date/Time End Date/Time Encounter Type Admission Type Attending [facility] Care Facility Care Department Encounter ID Source 2023-12-27 11:42:00 2023-12-27 12:56:00 Emergency [facility] [id number] [facility] 2023-12-10 10:30:00 2023-12-10 11:24:00 Emergency E [facility] [id number] [facility] 2022-09-18 21:01:00 2022-09-18 23:53:00 Emergency X ALFREDO COHEN [facility] ERT [id number] [facility] 2022-09-18 21:01:00 2022-09-18 23:53:00 Emergency Alfredo Cohen [facility] .840.114 350.1.13.10 4.2.7.2.686 [id number] [facility] 2021-10-19 00:00:00 2021-10-19 00:00:00 Orders Only Doctor Unassigned, [place] [facility] 1.840.114 350.1.13.10 4.2.7.2.686 [id number] [facility] 2021-10-04 10:52:00 2021-10-04 13:41:00 Emergency X NADINE ESCOBEDO [facility] ERT [id number] [facility] 2021-10-04 10:52:00 2021-10-04 13:41:00 Emergency Nadine Escobedo [facility] [id number] 350.1.13.10 4.2.7.2.686 [id number] [facility] 2021-09-08 07:53:00 2021-09-08 10:38:00 Emergency KATHI CYR [facility] ERT [id number] [facility] 2021-09-08 07:53:00 2021-09-08 10:38:00 Emergency Kathi Rodríguez [facility] [id number] 350.1.13.10 [id number] [id number] [facility] 2019-10-14 13:42:00 2019-10-14 16:23:00 Departed Emergency 2.16.840. [id number] [id number] 1.2 [facility] [id number] [address] [place] [address]) Results Test Description Test Time Test Comments Results Result Co mments Source [facility] [id number] 04:00:28* Test Item Value Reference Range Interpretation Comme nts NT-proBNP (test code = 5408096280) 31 pg/mL See_Comment [Automated message] The system which generated this result transmitted reference range: <=125. The reference range was not used to interpret this result as normal/abnormal. HEMANT (test code = HEMANT) Biotin has been reported to cause a negative bias, interpret results relative to patient's use of biotin. Lab Interpretation (test code = 40828-6) [facility] ([id number])2022-09-19 03:52:25* Test Item Value Reference Range Interpretation Comme nts NA (test code = 4136748114) 138 mmol/L 135-145 K (test code = 3685672021) 4.0 mmol/L 3.5-5.0 CL (test code = 4192446070) 105 mmol/L 98-108 CO2 TOTAL (test code = 4277990439) 24 mmol/L 23-31 AGAP (test code = 8845723653) 2-16 BUN (test code = 1441446591) 18 mg/dL 7-23 GLUCOSE (test code = 3372838365) 127 mg/dL 70-110 H CREATININE (test code = 6448252380) 0.81 mg/dL 0.50-1.04 TOTAL BILI (test code = 7268886338) 0.3 mg/dL 0.1-1.1 CALCIUM (test code = 5576488800) 8.8 mg/dL 8.6-10.6 T PROTEIN (test code = 2920643559) 7.1 g/dL 6.3-8.2 ALBUMIN (test code = 9760411856) 4.4 g/dL 3.5-5.0 ALK PHOS (test code = 7852018993) 52 U/L 34-122 ALTv (test code = 1742-6) 25 U/L 5-35 AST(SGOT) (test code = 0913931499) 27 U/L 13-40 eGFR (test code = 1435618245) mL/min/1.73m2 HEMANT (test code = HEMANT) Association [...] imaging tests). Lab Interpretation (test code = 66019-9) Abnormal [facility] WITH [id number] 03:38:46* Test Item Value Reference Range Interpretation Comme nts WBC (test code = 6690-2) See_Comment [Automated [employer]] The system which generated this result transmitted reference range: 4.30 - 11.10 10*3/?L. The reference range was not used to interpret this result as normal/abnormal. RBC (test code = 789-8) See_Comment [Automated [employer]] The system which generated this result transmitted [...] 33.8 g/dL 31.6-35.1 RDW-SD (test code = 87677-8) 37.8 fL 39.0-49.9 L RDW-CV (test code = 788-0) 12.3 % 12.0-15.5 PLT (test code = 777-3) See_Comment L [Automated [employer]] The system which generated this result transmitted reference range: 166 - 358 10*3/?L. The reference range was not used to interpret this result as normal/abnormal. MPV (test code = 74877-3) 12.8 fL 9.5-12.9 NRBC/100 WBC (test code = 7596849187) See_Comment [Automated me ssage] The system which generated this result transmitted reference range: 0.0 - 10.0 /100 WBCs. The reference range was not used to interpret this result as normal/abnormal. NRBC x10^3 (test code = 8834104109) See_Comment [Automated messa ge] The system which generated this result transmitted reference range: 10*3/?L. The reference range was not used to interpret this result as normal/abnormal. GRAN MAT (NEUT) % (test code = 770-8) 69.0 % IMM GRAN % (test code = 8260328246) 0.30 % LYMPH % (test code = 736-9) 25.3 % MONO % (test code = 5905-5) 4.6 % EOS % (test code = 713-8) 0.6 % BASO % (test code = 706-2) 0.2 % GRAN MAT x10^3(ANC) (test code = 2083453885) 7.47 10*3/uL 1.88-7.09 H IMM GRAN x10^3 (test code = 0491630849) 0.03 10*3/uL 0.00-0.06 LYMPH x10^3 (test code = 731-0) 2.74 10*3/uL 1.32-3.29 MONO x10^3 (test code = 742-7) 0.50 10*3/uL 0.33-0.92 EOS x10^3 (test code = 711-2) 0.07 10*3/uL 0.03-0.39 BASO x10^3 (test code = 704-7) 0.01-0.07 Lab Interpretation (test code = 00683-7) [facility] [id number] 03:33:00* Test Item Value Reference Range Interpretation Comme nts POCT PREG (test code = 1605) negative Lab Interpretation (test cod e = 63622-8) Normal [facility] [id number] 18:58:19* Test Item Value Reference Range Interpretation Comments TROPONIN I (test code = 6737950847) 0.004 ng/mL See_Comment [Automated message] The system [...] of biotin. Lab Interpretation (test code = 58438-7) Normal [facility]OL2022-[facility]-11 18:52:56* Test Item Value Reference Range Interpretation Comme nts ALCOHOL (test code = 2951195218) <10 mg/dL HEMANT (test code = HEMANT) <10 Gcbhplbg05-808 Toxic>100 Depression of MARKETING OPERATIONS ANALYST>400 Fatalities Reported [facility] 18:51:50* Test Item Value Reference Range Interpretation Comme nts SALICYLATE (test code = 5351623359) <10 mg/L HEMANT (test code = HEMANT) Therapeutic Range: ? Analgesic and Antipyretic Use ? 20-100 mg/L ? ? Anti-Inflammatory Use ? 100-250 mg/L Toxic Range: ? Greater than 300 mg/L [facility]ET[facility]OPHEN2022-01-11 18:51:35* Test Item Value Reference Range Interpretation Comme nts ACETAMINOP (test code = 9721586170) <10.0 10.0-30.0 L HEMANT (test code = HEMANT) Toxic: Greater andrés n 200 ug/mL @ 4 hour post ingestion or greater than 50 ug/mL @ 12 hour post ingestion Lab Interpretation (test code = 00967-1) Abnormal [facility] MET[facility]OLIC PANEL (92753)2021-10-04 18:43:08* Test Item Value Reference Range Interpretation Comme nts NA (test code = 9509043202) 138 mmol/L 135-145 K (test code = 6041592990) 4.5 mmol/L 3.5-5.0 CL (test code = 7040288883) 106 mmol/L 98-108 CO2 TOTAL (test code = 8967733610) 25 mmol/L 23-31 AGAP (test code = 8300824480) 2-16 BUN (test code = 4280320400) 14 mg/dL 7-23 GLUCOSE (test code = 2999135551) 110 mg/dL 70-110 CREATININE (test code = 7012864667) 0.81 mg/dL 0.50-1.04 TOTAL BILI (test code = 7483061701) 0.7 mg/dL 0.1-1.1 CALCIUM (test code = 0902051774) 9.4 mg/dL 8.6-10.6 T PROTEIN (test code = 7571224033) 8.0 g/dL 6.3-8.2 ALBUMIN (test code = 0978254306) 4.9 g/dL 3.5-5.0 ALK PHOS (test code = 2253094651) 55 U/L 34-122 ALTv (test code = 1742-6) 19 U/L 5-35 AST(SGOT) (test code = 2747085891) 32 U/L 13-40 eGFR (test code = 6673154836) mL/min/1.73m2 HEMANT (test code = HEMANT) Association [...] or urine or abnormalities in imaging tests). [facility] 18:42:48* Test Item Value Reference Range Interpretation Comme nts LIPASE (test code = 4135310263) 79 U/L 0-220 Lab Interpretation (test cod e = 31089-2) Normal [facility] HospitalCREATINE [id number] 18:42:28* Test Item Value Reference Range Interpretation Comme nts CK (test code = 8747423829) 60 U/L 33-194 Lab Interpretation (test cod e = 48038-8) [facility] WITH [id number] 18:29:45* Test Item Value Reference Range Interpretation Comme nts WBC (test code = 6690-2) See_Comment [Automated [employer]] The system which generated this result transmitted reference range: 4.30 - 11.10 10*3/?L. The reference range was not used to interpret this result as normal/abnormal. RBC (test code = 789-8) See_Comment [Automated [employer]] The system which generated this result transmitted [...] 33.5 g/dL 31.6-35.1 RDW-SD (test code = 15084-5) 39.6 fL 39.0-49.9 RDW-CV (test code = 788-0) 12.8 % 12.0-15.5 PLT (test code = 777-3) See_Comment [Automated [employer] ge] The system which generated this result transmitted reference range: 166 - 358 10*3/?L. The reference range was not used to interpret this result as normal/abnormal. MPV (test code = 98844-3) 13.7 fL 9.5-12.9 H IPF % (test code = 6058104540) 13.2 % 1.3-7.7 H Platelet count measured by fluorescence method. NRBC/100 WBC (test code = 1960069134) See_Comment [Automated [employer] ssage] The system which generated this result transmitted reference range: 0.0 - 10.0 /100 WBCs. The reference range was not used to interpret this result as normal/abnormal. NRBC x10^3 (test code = 1756443910) <0.01 See_Comment [Automated [employer]] The system which generated this result transmitted reference range: 10*3/?L. The reference range was not used to interpret this result as normal/abnormal. GRAN MAT (NEUT) % (test code = 770-8) 79.5 % IMM GRAN % (test code = 6203245742) 0.40 % LYMPH % (test code = 736-9) 14.6 % MONO % (test code = 5905-5) 4.8 % EOS % (test code = 713-8) 0.4 % BASO % (test code = 706-2) 0.3 % GRAN MAT x10^3(ANC) (test code = 4798704831) 7.17 10*3/uL 1.88-7.09 H IMM GRAN x10^3 (test code = 2996890402) 0.04 10*3/uL 0.00-0.06 LYMPH x10^3 (test code = 731-0) 1.32 10*3/uL 1.32-3.29 MONO x10^3 (test code = 742-7) 0.43 10*3/uL 0.33-0.92 EOS x10^3 (test code = 711-2) 0.04 10*3/uL 0.03-0.39 BASO x10^3 (test code = 704-7) 0.03 10*3/uL 0.01-0.07 Lab Interpretation (test code = 06362-1) [facility]normal [facility] [id number] 17:34:00* Test Item Value Reference Range Interpretation Comme nts POCT PREG (test code = 1605) Negative On board controls acceptable with C Line (test code = 3574) Present POCT PREG LOT # (test code = 3575) HCG [id number] POCT PREG TEST DATE ( test code = 3576) 11/21/2022 Lab Interpretation (test cod e = 11694-7) Normal [facility] HospitalUrinalysis2019-12-05 12:04:00* Test Item Value Reference Range Interpretation [...] (test code = PREGUSG) 1.025 1.002-1.036 N [id number] 12:03:00* Test Item Value Reference Range Interpretation [...]
== END 2024-05-12 12:02 | disposition home or self-care (01) ==
LOC: ER 10:00
DX: S63.591A Other specified sprain of right wrist, initial encounter (principal)

== ENCOUNTER 2024-06-09 16:51 | Emergency (ER) | payer SELFPAY ==
--- OUTSIDE RECORDS SUMMARY | 2024-06-09 16:55 | XMS REPORT | Continuity of Care Document ---
Author Name Unknown Address [address] [facility] [address] [place] [address] [facility] Address [address] [facility] [address] [place] [address] Care Team Providers Care Scientific Specialist Name Role Phone PCP, PATIENT DOES NOT HAVE A Primary Care Physic DR SANTA Carcamo Attending Clinician UnavailDR CUONG Loo Attending Clinician Unavailable ALFREDO COHEN Attending Clinician Unavailable Alfredo Godinez Attending Clinician [phone] Doctor Unassigned, [place] Attending Clinician U NADINE Swain Attending Clinician Unavailable Nadine Juarez Attending Clinician [phone] KATHI RODRÍGUEZ Attending Clinician UnavailKathi Hart DO Attending Clinician [phone] PROVIDER, ED TEMP Attending Clinician UnavailDR SANTA [...] active problems No known active problems Disease [facility] Allergies, Adverse Reactions, Alerts Allergy Name Allergy Type Status Severity Reaction(s) Onset Date Inactive Date Treating Clinician Comments Source PENICILL INS Drug Class Active Unknown-Cmnt 2020-09 00:00: 00 [facility] Penicill ins Propensi ty to adverse reaction s Active Unknown - See comments 2020-09 00:00: 00 Childhood allergy-t old not to take by parents [facility] Penicill ins Propensi ty to adverse reaction s Active Unknown - See comments 2020-09 00:00: 00 Childhood allergy-t old not to take by parents [facility] ONION EXTRACT FA Active UNKNOWN [facility] No Known Allergie s MA Active UNKNOWN [place] [facility] NO KNOWN ALLERGIE S Drug Class Active [facility] penicill in DA Active MILD Rash; Rash [place] [facility] Social History Social Habit Start Date Stop Date Quantity Comments Source Exposure to SARS-CoV-2 (event) 2022-09-08 00:00:00 2022-09-18 21:03:[address] [facility] Sex Assigned At 2000 00:00:00 2000 00:00:[address] [facility] Smoking Status Start Date Stop Date Source Tobacco smoking consumption unknown [facility] Medications Ordered Medication Name Filled Medication [...] HEENT
D uration of Therapy: 7 days [facility] benzonatate (TESSALON PERLES) capsule 200 mg 2021-09 05:30: 00 09-19 04:47 :00 No 200mg 200 mg, Oral, ONCE, 1 dose, On Sun09/18/22 at 2330, [facility] predniSONE (DELTASONE) tablet 40 mg 2021-09 04:45: 00 09-19 04:46 :00 No 40mg 40 mg, Oral, ONCE, 1 dose, On Sun09/18/22 at 2245, [facility] ondansetron (ZOFRAN (PF)) injection 4 mg 2021-09 04:00: 00 09-19 03:25 :00 No 4mg 4 mg, Slow IV Push, ONCE, 1 dose, On Sun09/18/22 at 2200, [facility] NaCl 0.9% (NS) bolus infusion 1,000 mL 2021-09 04:00: 00 09-19 05:31 :00 No 1000mL at 999 mL/hr, 1,000 mL, IV Infusion, ONCE, 1 dose, On Sun09/18/22 at 2200, [facility] benzonatate 200 mg capsule 2021-09 00:00: 00 Yes [id number] 200mg Take 1 capsule by mouth 3 (three) times daily as needed for Cough. [facility] doxycycline hyclate 100 mg capsule 2021-09 00:00: 00 09-26 05:59 :00 No [id number] 100mg Take 1 capsule by mouth in the morning and 1 capsule in the evening. Do all this for 7 days. [facility] predniSONE 20 mg tablet 2021-09 00:00: 00 09-24 05:59 :00 No [id number] 40mg Take 2 tablets by mouth in the morning for 5 days. [facility] activated charcoal-so rbitoL (ACTIDOSE/S ORBITAL) 25 gram/120 mL suspension 25 g 10-04 19:00: 00 10-04 18:43 :00 No 25g 25 g, Oral, ONCE, 1 dose, On Sun10/04/21 at 1300, [facility] predniSONE 10 mg tablet 2020-09 00:00: 00 09-14 05:59 :00 No [id number] 50mg Take 5 tablets by mouth daily for 4 days. [facility] albuterol (PROVENTIL) 2.5 mg /3 mL (0.083 %) nebulizer solution 5 mg 2020-09 16:30: 00 09-08 15:33 :00 No 5mg 5 mg, Inhalation , ONCE, 1 dose, On Amelia 09/08/21 at 1030, [facility] predniSONE (DELTASONE) tablet 50 mg 2020-09 16:30: 00 09-08 15:41 :00 No 50mg 50 mg, Oral, ONCE, 1 dose, On [place] 09/08/21 at 1030, [facility] ipratropium (ATROVENT) 0.02 % nebulizer solution 0.5 mg 2020-09 15:45: 00 09-08 14:47 :00 No .5mg 0.5 mg, Inhalation , ONCE, 1 dose, On [place] 09/08/21 at 0945, [facility] albuterol (PROVENTIL) 2.5 mg /3 mL (0.083 %) nebulizer solution 5 mg 2020-09 15:45: 00 09-08 14:47 :00 No 5mg 5 mg, Inhalation , ONCE, 1 dose, On Am[place] 09/08/21 at 0945, [facility] ondansetron (ZOFRAN-ODT ) disintegrat ing tablet 4 mg 2020-09 15:30: 00 09-08 14:17 :00 No 4mg 4 mg, Oral, ONCE, 1 dose, On Amelia 09/08/21 at 0930, Routine [facility] ondansetron (ZOFRAN ODT) 4 mg disintegrat ing tablet 2020-09 00:00: 00 Yes [id number] 4mg Take 1 tablet by mouth every 8 (eight) hours as needed for Nausea and Vomiting (N/V). [facility] Vital Signs Vital Name Observation [...] Systolic blood pressure 2022-09-19 04:00:00 115 mm[Hg] [facility] Diastolic blood pressure 2022-09-19 04:00:00 60 mm[Hg] [facility] Heart rate 2022-09-19 04:00:00 66 /min Unive [facility] Respiratory rate 2022-09-19 04:00:00 18 /min [facility] Oxygen saturation in Arterial blood by Pulse oximetry 2022-09-19 04:00:00 97 /min [facility] Body temperature 2022-09-19 03:06:[address] [facility] Body height 2022-09-19 03:06:00 172.7 cm [facility] Body weight 2022-09-19 03:06:00 81.647 kg [facility] BMI 2022-09-19 03:06:00 27.37 kg/m2 [facility] Systolic blood pressure 2021-10-04 16:49:00 133 mm[Hg] [facility] Diastolic blood pressure 2021-10-04 16:49:00 96 mm[Hg] [facility] Heart rate 2021-10-04 16:49:00 112 /min Unive [facility] Respiratory rate 2021-10-04 16:49:00 22 /min [facility] Body height 2021-10-04 16:49:00 165.1 cm [facility] Body weight 2021-10-04 16:49:00 79.379 kg [facility] BMI 2021-10-04 16:49:00 29.12 kg/m2 [facility] Oxygen saturation in Arterial blood by Pulse oximetry 2021-10-04 16:49:00 100 /min [facility] Systolic blood pressure 2021-09-08 16:36:51 122 mm[Hg] [facility] Diastolic blood pressure 2021-09-08 16:36:51 60 mm[Hg] [facility] Heart rate 2021-09-08 16:36:51 94 /min [facility] temperature 2021-09-08 16:36:[address] [facility] Respiratory rate 2021-09-08 16:36:51 18 /min [facility] Oxygen saturation in Arterial blood by Pulse oximetry 2021-09-08 16:36:51 99 /min [facility] Body height 2021-09-08 13:52:00 172.7 cm [facility] Body weight 2021-09-08 13:52:00 88.451 kg [facility] BMI 2021-09-08 13:52:00 29.65 kg/m2 [facility] BP Systolic 2021-07-27 12:41:[address] [facility] BP Diastolic 2021-07-27 12:41:[address] [facility] BMI (Body Mass Index) 2021-07-27 12:41:[address] [facility] Height 2021-07-27 12:41:17 [facility] Weight Measured 2021-07-27 12:41:[address] [facility] Body Temperature 2021-07-27 12:41:[address] [facility] Heart Rate 2021-07-27 12:41:17 [facility] Respiratory Rate 2021-07-27 12:41:[address] [facility] O2 % BldC Oximetry 2021-07-27 12:41:[address] [facility] Procedures Procedure Date / Time Performed Performing Clinician Source XR CHEST 1 VW 2022-09-19 03:47:07 Alfredo Cohen [facility] URINALYSIS 2022-09-19 03:33:00 Alfredo Cohen [facility] POCT TEST 2022-09-19 03:33:[address] [facility] TROPONIN I 2022-09-19 03:25:00 [facility]. METABOLIC PANEL ([id number]) 2022-09-19 03:25:[address] [facility] CBC WITH DIFF 2022-09-19 03:25:00 Alfredo Cohen [facility] RAPID INFLUENZA A/B 2022-09-19 03:25:[address] [facility] N-TERMINAL PRO-BNP 2022-09-19 03:25:[address] [facility] COVID-19 (ID NOW RAPID TESTING) 2022-09-19 03:25:[address] [facility] EXTERNAL PROVIDER RECORDS 2021-10-19 06:01:00 Doctor Unassigned, [place] [facility] CT HEAD WO CONTRAST 2021-10-04 18:04:[address] [facility] XR CHEST 1 VW 2021-10-04 18:03:00 Nadine Escobedo [facility] URINE DRUG (IMMUNOASSAY) - COMPREHENSIVE DRUG SCREEN 2021-10-04 17:40:[address] [facility] CREATINE KINASE 2021-10-04 17:35:00 Nadine Escobedo [facility] LIPASE 2021-10-04 17:35:00 Nadine Escobedo [facility] TROPONIN I 2021-10-04 17:35:00 Nadine Escobedo [facility] COMP. METABOLIC PANEL ([id number]) 2021-10-04 17:35:[address] [facility] SALICYLATE 2021-10-04 17:35:00 Nadine Escobedo [facility] ETHANOL 2021-10-04 17:35:00 Nadine Escobedo [facility] CBC WITH DIFF 2021-10-04 17:35:00 Nadine Escobedo [facility] URINALYSIS 2021-10-04 17:35:00 Nadine Escobedo [facility] COVID-19 (ID NOW RAPID TESTING) 2021-10-04 17:35:[address] [facility] POCT TEST 2021-10-04 17:34:[address] [facility] NOTICE OF PRIVACY PRACTICES 2021-09-08 13:48:15 Doctor Unassigned, [place] [facility] CONSENT/REFUSAL FOR DIAGNOSIS AND TREATMENT 2021-09-08 13:48:03 Doctor Unassigned, [place] [facility] Encounters Start Date/Time End Date/Time Encounter Type Admission Type Attending [facility] Care Department Encounter ID Source 2023-12-27 11:42:00 2023-12-27 12:56:00 Emergency [facility] [id number] [facility] 2023-12-10 10:30:00 2023-12-10 11:24:00 Emergency E [facility] [id number] [facility] 2022-09-18 21:01:00 2022-09-18 23:53:00 Emergency X ALFREDO COHEN [facility] ERT [id number] [facility] 2022-09-18 21:01:00 2022-09-18 23:53:00 Emergency Alfredo Cohen [facility] .840.114 [id number] [facility] 2021-10-19 00:00:00 2021-10-19 00:00:00 Orders Only Doctor Unassigned, [place] [facility] 1.840.114 [id number] [id number] [facility] 2021-10-04 10:52:00 2021-10-04 13:41:00 Emergency X NADINE ESCOBEDO [facility] ERT [id number] [facility] 2021-10-04 10:52:00 2021-10-04 13:41:00 Emergency Nadine Escobedo [facility] [id number] [id number] [facility] 2021-09-08 07:53:00 2021-09-08 10:38:00 Emergency KATHI CYR [facility] ERT [id number] [facility] 2021-09-08 07:53:00 2021-09-08 10:38:00 Emergency Kathi Rodríguez [facility] [id number] [id number] [id number] [facility] 2019-10-14 13:42:00 2019-10-14 16:23:00 Departed Emergency [id number]. [id number] [id number] [facility] [id number] [address] [place] [address]) Results Test Description Test Time Test Comments Results Result Co mments Source [facility] [id number] 04:00:28* Test Item Value Reference Range Interpretation Comme nts NT-proBNP (test code = 5518515078) 31 pg/mL See_Comment [Automated message] The system which generated this result transmitted reference range: <=125. The reference range was not used to interpret this result as normal/abnormal. HEMANT (test code = HEMANT) Biotin has been reported to cause a negative bias, interpret results relative to patient's use of biotin. Lab Interpretation (test code = 32785-7) Normal [facility]OLIC PANEL ([id number])2022-09-19 03:52:25* Test Item Value Reference Range Interpretation Comme nts NA (test code = 3735907286) 138 mmol/L 135-145 K (test code = 2566584374) 4.0 mmol/L 3.5-5.0 CL (test code = 8289411417) 105 mmol/L 98-108 CO2 TOTAL (test code = 1879047052) 24 mmol/L 23-31 AGAP (test code = 6472371991) 2-16 BUN (test code = 4743055913) 18 mg/dL 7-23 GLUCOSE (test code = 9366442602) 127 mg/dL 70-110 H CREATININE (test code = 5468920074) 0.81 mg/dL 0.50-1.04 TOTAL BILI (test code = 5412905730) 0.3 mg/dL 0.1-1.1 CALCIUM (test code = 5523679899) 8.8 mg/dL 8.6-10.6 T PROTEIN (test code = 9689206420) 7.1 g/dL 6.3-8.2 ALBUMIN (test code = 9401729745) 4.4 g/dL 3.5-5.0 ALK PHOS (test code = 1343186240) 52 U/L 34-122 ALTv (test code = 1742-6) 25 U/L 5-35 AST(SGOT) (test code = 3145044715) 27 U/L 13-40 eGFR (test code = 5128241890) mL/min/1.73m2 HEMANT (test code = HEMANT) Association [...] imaging tests). Lab Interpretation (test code = 64159-7) Abnormal [facility] WITH [id number] 03:38:46* Test Item Value Reference Range Interpretation Comme nts WBC (test code = 6690-2) See_Comment [Automated [employer])] The system which generated this result transmitted reference range: 4.30 - 11.10 10*3/?L. The reference range was not used to interpret this result as normal/abnormal. RBC (test code = 789-8) See_Comment [Automated [employer]] The system which generated this result transmitted [...] 33.8 g/dL 31.6-35.1 RDW-SD (test code = 67165-8) 37.8 fL 39.0-49.9 L RDW-CV (test code = 788-0) 12.3 % 12.0-15.5 PLT (test code = 777-3) See_Comment L [Automated [employer]] The system which generated this result transmitted reference range: 166 - 358 10*3/?L. The reference range was not used to interpret this result as normal/abnormal. MPV (test code = 66815-6) 12.8 fL 9.5-12.9 NRBC/100 WBC (test code = 5209863735) See_Comment [Automated me ssage] The system which generated this result transmitted reference range: 0.0 - 10.0 /100 WBCs. The reference range was not used to interpret this result as normal/abnormal. NRBC x10^3 (test code = 7114533844) See_Comment [Automated messa ge] The system which generated this result transmitted reference range: 10*3/?L. The reference range was not used to interpret this result as normal/abnormal. GRAN MAT (NEUT) % (test code = 770-8) 69.0 % IMM GRAN % (test code = 0950988620) 0.30 % LYMPH % (test code = 736-9) 25.3 % MONO % (test code = 5905-5) 4.6 % EOS % (test code = 713-8) 0.6 % BASO % (test code = 706-2) 0.2 % GRAN MAT x10^3(ANC) (test code = 2478876899) 7.47 10*3/uL 1.88-7.09 H IMM GRAN x10^3 (test code = 0333161036) 0.03 10*3/uL 0.00-0.06 LYMPH x10^3 (test code = 731-0) 2.74 10*3/uL 1.32-3.29 MONO x10^3 (test code = 742-7) 0.50 10*3/uL 0.33-0.92 EOS x10^3 (test code = 711-2) 0.07 10*3/uL 0.03-0.39 BASO x10^3 (test code = 704-7) 0.01-0.07 Lab Interpretation (test code = 32231-2) Abnormal [facility] [id number] 03:33:00* Test Item Value Reference Range Interpretation Comme nts POCT PREG (test code = 1605) negative Lab Interpretation (test cod e = 98930-8) Normal [facility] [id number] 18:58:19* Test Item Value Reference Range Interpretation Comments TROPONIN I (test code = 3208454267) 0.004 ng/mL See_Comment [Automated message] The system [...] of biotin. Lab Interpretation (test code = 60850-7) Normal [facility]2022-01-11 18:52:56* Test Item Value Reference Range Interpretation Comme nts ALCOHOL (test code = 0585425546) <10 mg/dL HEMANT (test code = HEMANT) <10 Xncksrxb82-032 Toxic>100 Depression of [employer]ARM [employer]>[address] [facility]2022-01-11 18:51:50* Test Item Value Reference Range Interpretation Comme nts SALICYLATE (test code = 4122102917) <10 mg/L HEMANT (test code = HEMANT) Therapeutic Range: ? Analgesic and Antipyretic Use ? 20-100 mg/L ? ? Anti-Inflammatory Use ? 100-250 mg/L Toxic Range: ? Greater than 300 mg/L [facility]HEN2022-01-11 18:51:35* Test Item Value Reference Range Interpretation Comme nts ACETAMINOP (test code = 0017247775) <10.0 10.0-30.0 L HEMANT (test code = HEMANT) Toxic: Greater andrés n 200 ug/mL @ 4 hour post ingestion or greater than 50 ug/mL @ 12 hour post ingestion Lab Interpretation (test code = 78623-1) Abnormal [facility] MET[facility]OLIC PANEL ([id number])2021-10-04 18:43:08* Test Item Value Reference Range Interpretation Comme nts NA (test code = 6235883558) 138 mmol/L 135-145 K (test code = 2375898906) 4.5 mmol/L 3.5-5.0 CL (test code = 5230901147) 106 mmol/L 98-108 CO2 TOTAL (test code = 8226845686) 25 mmol/L 23-31 AGAP (test code = 3727113771) 2-16 BUN (test code = 5820837744) 14 mg/dL 7-23 GLUCOSE (test code = 1575568407) 110 mg/dL 70-110 CREATININE (test code = 7022997376) 0.81 mg/dL 0.50-1.04 TOTAL BILI (test code = 1285683275) 0.7 mg/dL 0.1-1.1 CALCIUM (test code = 1874758989) 9.4 mg/dL 8.6-10.6 T PROTEIN (test code = 0344559386) 8.0 g/dL 6.3-8.2 ALBUMIN (test code = 1814594500) 4.9 g/dL 3.5-5.0 ALK PHOS (test code = 7011046414) 55 U/L 34-122 ALTv (test code = 1742-6) 19 U/L 5-35 AST(SGOT) (test code = 6280968598) 32 U/L 13-40 eGFR (test code = 3805575304) mL/min/1.73m2 HEMANT (test code = HEMANT) Association [...] or urine or abnormalities in imaging tests). [facility] 18:42:48* Test Item Value Reference Range Interpretation Comme nts LIPASE (test code = 3185458949) 79 U/L 0-220 Lab Interpretation (test cod e = 52641-0) Normal [facility]CREATINE [id number] 18:42:28* Test Item Value Reference Range Interpretation Comme nts CK (test code = 8843901197) 60 U/L 33-194 Lab Interpretation (test cod e = 63651-0) Normal [facility] WITH [id number] 18:29:45* Test Item Value Reference Range Interpretation Comme nts WBC (test code = 6690-2) See_Comment [Automated [employer])] The system which generated this result transmitted reference range: 4.30 - 11.10 10*3/?L. The reference range was not used to interpret this result as normal/abnormal. RBC (test code = 789-8) See_Comment [Automated [employer])] The system which generated this result transmitted [...] 33.5 g/dL 31.6-35.1 RDW-SD (test code = 68681-2) 39.6 fL 39.0-49.9 RDW-CV (test code = 788-0) 12.8 % 12.0-15.5 PLT (test code = 777-3) See_Comment [Automated [employer]] The system which generated this result transmitted reference range: 166 - 358 10*3/?L. The reference range was not used to interpret this result as normal/abnormal. MPV (test code = 72338-7) 13.7 fL 9.5-12.9 H IPF % (test code = 2744871128) 13.2 % 1.3-7.7 H Platelet count measured by fluorescence method. NRBC/100 WBC (test code = 9626295267) See_Comment [Automated [employer] ssage] The system which generated this result transmitted reference range: 0.0 - 10.0 /100 WBCs. The reference range was not used to interpret this result as normal/abnormal. NRBC x10^3 (test code = 4094205256) <0.01 See_Comment [Automated [employer]] The system which generated this result transmitted reference range: 10*3/?L. The reference range was not used to interpret this result as normal/abnormal. GRAN MAT (NEUT) % (test code = 770-8) 79.5 % IMM GRAN % (test code = 7370775472) 0.40 % LYMPH % (test code = 736-9) 14.6 % MONO % (test code = 5905-5) 4.8 % EOS % (test code = 713-8) 0.4 % BASO % (test code = 706-2) 0.3 % GRAN MAT x10^3(ANC) (test code = 4981728346) 7.17 10*3/uL 1.88-7.09 H IMM GRAN x10^3 (test code = 1571212459) 0.04 10*3/uL 0.00-0.06 LYMPH x10^3 (test code = 731-0) 1.32 10*3/uL 1.32-3.29 MONO x10^3 (test code = 742-7) 0.43 10*3/uL 0.33-0.92 EOS x10^3 (test code = 711-2) 0.04 10*3/uL 0.03-0.39 BASO x10^3 (test code = 704-7) 0.03 10*3/uL 0.01-0.07 Lab Interpretation (test code = 69298-6) [facility]normal [facility] [id number] 17:34:00* Test Item Value Reference Range Interpretation Comme nts POCT PREG (test code = 1605) Negative On board controls acceptable with C Line (test code = 3574) Present POCT PREG LOT # (test code = 3575) HCG [id number] POCT PREG TEST DATE ( test code = 3576) 11/21/2022 Lab Interpretation (test cod e = 89655-5) Normal [facility] Hospital[facility]inalysis2019-12-05 12:04:00* Test Item Value Reference Range [...] (test code = PREGUSG) 1.025 1.002-1.036 N [id number] 12:03:00* Test Item Value Reference Range Interpretation [...]
[2024-06-09 17:40] LABS: Specific Gravity > 1.030 (1.005-1.030); Sqamous Epithelial <5 /HPF (None Seen); Urine Bacteria None Seen /HPF (<20); Urine Bilirubin NEGATIVE (Negative); Urine Blood 3+ (OVER) (Negative); Urine Clarity Turbid (Clear); Urine Color Yellow (Yellow); Urine Crystals Unidentified Few /HPF (None Seen); Urine Culture Reflex Order NOT NEEDED; Urine Glucose NEGATIVE (Negative); Urine Ketones 2+ (Negative); Urine Microscopic Reflex YN ORDER UMIC; Urine Mucus Slight /HPF (None Seen); Urine Nitrite NEGATIVE (Negative); Urine Protein TRACE (Negative); Urine Urobilinogen Normal (Normal); Urine WBC <5 /HPF (<5); Urine pH 5.5 (5.0-7.0)
[2024-06-09 17:51] LABS: SARS-CoV-2 Antigen CONTROL BLUE LINE VIS/BG OK; SARS-CoV-2 Antigen Rapid Res Negative (Negative)
--- NOTE | 2024-06-09 18:53 | ER ---
Nurse's Notes [facility] Name: Kimber Layton Age: 23 yrs Sex: Female : 2000 Arrival Date: 06/09/2024 Time: 16:51 Bed 12 Private MD: Diagnosis: Viral infection, unspecified Presentation: 06/09 17:10 Chief complaint: Patient states: Fever, chills, cough, congestion onset Sunday. cm10 Coronavirus screen: Client denies travel out of the [place] in the last 14 days. Ebola Screen: Patient denies travel to an Ebola-affected area in the 21 days before illness onset. No symptoms or risks identified at this time. Initial Sepsis Screen: Does the patient meet any 2 criteria? No. Patient's initial sepsis screen is negative. Does the patient have a suspected source of infection? No. Patient's initial sepsis screen is negative. Risk Assessment: Do you want to hurt yourself or someone else? Patient reports no desire to harm self or others. Onset of symptoms was June 06, 2024. 17:10 Method Of Arrival: Ambulatory 10 17:10 Acuity: REYNA 4 cm10 Triage Assessment: 17:12 General: Appears in no apparent distress. comfortable, Behavior is calm, cooperative. cm10 Neuro: No deficits noted. Level of Consciousness is awake, alert, obeys commands, Oriented to person, place, time, situation, Appropriate for age. Respiratory: No deficits noted. Airway is patent Respiratory effort is even, unlabored, Respiratory pattern is regular, symmetrical. Historical: - Allergies: 17:12 Amoxicillin; cm10 17:12 Motrin; cm10 17:12 PENICILLINS; cm10 - PMHx: 17:12 Asthma; GERD; Vertigo (GERD); cm10 - PSHx: 17:12 Cholecystectomy; left knee; cm10 - Immunization history:: Adult Immunizations up to date. - Infectious Disease History:: Denies. - Social history:: Smoking status: unknown. Screenin:[address] [facility] ED Fall Risk Assessment (Adult) History of falling in the last 3 months, mb9 including since admission No falls in past 3 months (0 pts) Confusion or Disorientation No (0 pts) Intoxicated or Sedated No (0 pts) Impaired Gait No (0 pts) Mobility Assist Device Used No (0 pt) Altered Elimination No (0 pt) Score/Fall Risk Level 0 - 2 = Low Risk Oriented to surroundings, Maintained a safe environment, Educated pt \T\ family on fall prevention, incl call for assistance when getting out of bed. Abuse screen: Denies threats or abuse. Nutritional screening: No deficits noted. Tuberculosis screening: No symptoms or risk factors identified. Assessment: 17:29 General: Appears in no apparent distress. Behavior is calm, cooperative. Pain: Denies mb9 pain. Neuro: [place]o Agitation-Sedation Scale (RASS): 0 - Alert and Calm Level of Consciousness is awake, alert, obeys commands, Oriented to person, place, time, situation, Appropriate for age. Cardiovascular: Patient's skin is warm and dry. Respiratory: Reports cough that is Airway is patent Respiratory effort is even, unlabored, Respiratory pattern is regular, symmetrical, Breath sounds are clear bilaterally. GI: No signs and/or symptoms were reported involving the gastrointestinal system. : No signs and/or symptoms were reported regarding the genitourinary system. EENT: Reports nasal congestion. Derm: Skin is pink, warm \T\ dry. Musculoskeletal: Range of motion: intact in all extremities. 18:31 Reassessment: No changes from previously documented assessment. Patient and/or family mb9 updated on plan of care and expected duration. Pain level reassessed. Patient is alert, oriented x 3, equal unlabored respirations, skin warm/dry/pink. Vital Signs: 17:10 BP 109 / 84; Pulse 86; Resp 16; Temp 98.8(O); Pulse Ox 100% on R/A; Weight 81.65 kg; cm10 Height 5 ft. 8 in. ; Pain 0/10; 18:56 Pulse 80; Resp 16; Pulse Ox 100% on R/A; Pain 0/10; mb9 17:10 Body Mass Index 27.37 (81.65 kg, 172.72 cm) cm10 17:10 Pain Scale: Adult cm10 18:56 Pain Scale: Adult mb9 ED Course: 16:54 Patient arrived in ED. im 16:56 Mattie Reyes FNP-C [facility]. kb 16:56 Bharath Gee MD is Attending Physician. kb 17:12 Triage completed. cm10 17:13 Arm band placed on Patient placed in waiting room. cm10 17:17 Pena, Bettye, RN is Primary Nurse. mb9 17:28 No provider procedures requiring assistance completed. Patient did not have IV access mb9 during this emergency room visit. 17:28 Urine collected: clean catch specimen, COVID swab sent to lab. Flu and/or RSV swab sent mb9 to lab. Strep swab sent to lab. 17:29 Bed in low position. Call light in reach. Side rails up X 1. Provided Education on: mb9 press call light if needing anything. Client placed on continuous cardiac and pulse oximetry monitoring. NIBP monitoring applied. Administered Medications: No medications were administered Medication: 17:29 VIS not applicable for this client. mb9 Outcome: 18:53 Discharge ordered by . max 18:56 Discharged to home ambulatory, mb9 18:56 Condition: stable 18:56 Discharge instructions given to patient, Instructed on discharge instructions, follow up and referral plans. Demonstrated understanding of instructions, follow-up care, 18:57 Patient left the ED. mb9 Signatures: Mattie Reyes, [employer] INSPECTOR-Lucia Mackey, RN RN mb9 Kait Osuna Clarissa RN RN cm10
--- NOTE | 2024-06-09 18:53 | EDPHYS ---
Physician Documentation [facility] Name: Kimber Layton Age: 23 yrs Sex: Female : 2000 Arrival Date: 06/09/2024 Time: 16:51 Bed 12 Private MD: ED Physician Bharath Gee HPI: 06/09 17:26 This 23 yrs old Female presents to ER via Ambulatory with complaints of Syncope, Flu kb Symptoms. 17:26 Pt is a 23 year old female who presents for fever, chills, bodyaches, cough, kb congestion, sneezing, nausea and vomiting that started 4 days ago. Denies abd pain. States symptoms increased today. Historical: - Allergies: 17:12 Amoxicillin; cm10 17:12 Motrin; cm10 17:12 PENICILLINS; cm10 - PMHx: 17:12 Asthma; GERD; Vertigo (GERD); cm10 - PSHx: 17:12 Cholecystectomy; left knee; cm10 - Immunization history:: Adult Immunizations up to date. - Infectious Disease History:: Denies. - Social history:: Smoking status: unknown. ROS: 17:27 Constitutional: As per HPI kb Exam: 17:27 Constitutional: This is a well developed, well nourished patient who is awake, alert, kb and in no acute distress. Head/Face: Normocephalic, atraumatic. ENT: Moist Mucous membranes Cardiovascular: Regular rate Respiratory: Respirations even and unlabored. No increased work of breathing. Talking in full sentences Abdomen/GI: Soft, non-tender. No distention Skin: Warm, dry with normal turgor. Normal color. MS/ Extremity: Pulses equal, no cyanosis. Neurovascular intact. Full, normal range of motion. Neuro: Awake and alert, GCS 15, oriented to person, place, time, and situation. Moves all extremities. Normal gait. Vital Signs: 17:10 BP 109 / 84; Pulse 86; Resp 16; Temp 98.8(O); Pulse Ox 100% on R/A; Weight 81.65 kg; cm10 Height 5 ft. 8 in. ; Pain 0/10; 18:56 Pulse 80; Resp 16; Pulse Ox 100% on R/A; Pain 0/10; mb9 17:10 Body Mass Index 27.37 (81.65 kg, 172.72 cm) cm10 17:10 Pain Scale: Adult cm10 18:56 Pain Scale: Adult mb9 MDM: 16:56 Patient medically screened. kb 17:28 Data reviewed: vital signs, nurses notes. kb 18:50 Differential Diagnosis: Bronchitis Influenza Upper Respiratory Infection Other covid, kb strep. Test considered but Not performed: X-ray: chest xray considered but lungs clear bilaterally, resp even and unlabored. oxygen saturation 100% on room air. Counseling: I had a detailed discussion with the patient and/or guardian regarding the historical points, exam findings, and any diagnostic results supporting the discharge/admit diagnosis, lab results, the need for outpatient follow up, a family practitioner, to return to the emergency department if symptoms worsen or persist or if there are any questions or concerns that arise at home. 06/09 17:16 Order name: Flu; Complete Time: 18:10 cm10 06/09 17:16 Order name: Strep cm10 06/09 17:16 Order name: SARS-COV-2 Antigen Rapid; Complete Time: 18:10 cm10 06/09 17:16 Order name: Urinalysis w/ reflexes; Complete Time: 17:41 cm10 06/09 17:16 Order name: Test, Urine; Complete Time: 17:41 cm10 06/09 17:53 Order name: Throat Culture EDMS Administered Medications: No medications were administered Disposition Summary: 06/09/24 18:53 Discharge Ordered Notes: Location: Home kb Condition: Stable kb Diagnosis - Viral infection, unspecified kb Followup: kb - With: Emergency Department - When: As needed - Reason: Worsening of condition Followup: kb - With: Private Physician - When: 2 - 3 days - Reason: Recheck today's complaints, Continuance of care, Re-evaluation by your physician Discharge Instructions: - Discharge Summary Sheet kb - Viral Illness, Adult kb Forms: - Medication Reconciliation Form kb - Antibiotic Education kb - Prescription Opioid Use kb - Patient Portal Instructions kb - Leadership Thank You Letter kb Signatures: Dispatcher [employer] Mattie Hendricks FNP-C FNP-Nela Dhaliwal, RN RN cm10
[2024-06-09 19:27] VITALS: BP 109/84; TEMP 98.8; O2SAT 100
== END 2024-06-09 18:57 | disposition home or self-care (01) ==
LOC: ER 16:51
DX: B34.9 Viral infection, unspecified (principal); Z11.52 Encounter for screening for COVID-19
CPT/HCPCS: 36415; 81001; 81025; 87070; 87081; 87804; 87811; 99283

== ENCOUNTER 2024-08-18 06:56 | Emergency (ER) | payer SELFPAY ==
--- OUTSIDE RECORDS SUMMARY | 2024-08-18 07:00 | XMS REPORT | Continuity of Care Document ---
Author Name Unknown Address [address] [facility] [address] [place] [address] [facility] Address [address] [facility] [address] [place] [address] Care Team Providers Care Psychiatric Arnp Name Role Phone PCP, PATIENT DOES NOT HAVE A Primary Care Physic DR SANTA Carcamo Attending Clinician UnavailDR CUONG Loo Attending Clinician Unavailable ALFREDO COHEN Attending Clinician Unavailable Alfredo Godinez Attending Clinician [phone] Doctor Unassigned, [place] Attending Clinician U NADINE Swain Attending Clinician Unavailable Nadine Juarez Attending Clinician [phone] KATHI RODRÍGUEZ Attending Clinician UnavailKathi Hart DO Attending Clinician [phone] PROVIDER, ED TEMP Attending Clinician UnavailDR SANTA [...] active problems No known active problems Disease General acute hospital Allergies, Adverse Reactions, Alerts Allergy Name Allergy Type Status Severity Reaction(s) Onset Date Inactive Date Treating Clinician Comments Source PENICILL INS Drug Class Active Unknown-Cmnt 2020-09 00:00: 00 General acute hospital Penicill ins Propensi ty to adverse reaction s Active Unknown - See comments 2020-09 00:00: 00 Childhood allergy-t old not to take by parents General acute hospital Penicill ins Propensi ty to adverse reaction s Active Unknown - See comments 2020-09 00:00: 00 Childhood allergy-t old not to take by parents General acute hospital NO KNOWN ALLERGIE S Drug Class Active General acute hospital ONION EXTRACT FA Active UNKNOWN [facility] No Known Allergie s MA Active UNKNOWN [facility] penicill in DA Active MILD Rash; Rash [facility] Social History Social Habit Start Date Stop Date Quantity Comments Source Exposure to SARS-CoV-2 (event) 2022-09-08 00:00:00 2022-09-18 21:03:00 Not sure [facility] Sex Assigned At 2000 00:00:00 2000 00:00:00 [facility] Smoking Status Start Date Stop Date Source Tobacco smoking consumption unknown [facility] Medications Ordered Medication Name Filled Medication Name [...] HEENT
D uration of Therapy: 7 days General acute hospital benzonatate (TESSALON PERLES) capsule 200 mg 2021-09 05:30: 00 09-19 04:47 :00 No 200mg 200 mg, Oral, ONCE, 1 dose, On Sun09/18/22 at 2330, [facility] predniSONE (DELTASONE) tablet 40 mg 2021-09 04:45: 00 09-19 04:46 :00 No 40mg 40 mg, Oral, ONCE, 1 dose, On Sun09/18/22 at 2245, [facility] ondansetron (ZOFRAN (PF)) injection 4 mg 2021-09 04:00: 00 09-19 03:25 :00 No 4mg 4 mg, Slow IV Push, ONCE, 1 dose, On Sun09/18/22 at 2200, [facility] NaCl 0.9% (NS) bolus infusion 1,000 mL 2021-09 04:00: 00 09-19 05:31 :00 No 1000mL at 999 mL/hr, 1,000 mL, IV Infusion, ONCE, 1 dose, On Sun09/18/22 at 2200, [facility] benzonatate 200 mg capsule 2021-09 00:00: 00 Yes [id number] 200mg Take 1 capsule by mouth 3 (three) times daily as needed for Cough. General acute hospital doxycycline hyclate 100 mg capsule 2021-09 00:00: 00 09-26 05:59 :00 No [id number] 100mg Take 1 capsule by mouth in the morning and 1 capsule in the evening. Do all this for 7 days. General acute hospital predniSONE 20 mg tablet 2021-09 00:00: 00 09-24 05:59 :00 No [id number] 40mg Take 2 tablets by mouth in the morning for 5 days. General acute hospital activated charcoal-so rbitoL (ACTIDOSE/S ORBITAL) 25 gram/120 mL suspension 25 g 10-04 19:00: 00 10-04 18:43 :00 No 25g 25 g, Oral, ONCE, 1 dose, On Sun10/04/21 at 1300, [facility] predniSONE 10 mg tablet 2020-09 00:00: 00 09-14 05:59 :00 No [id number] 50mg Take 5 tablets by mouth daily for 4 days. General acute hospital albuterol (PROVENTIL) 2.5 mg /3 mL (0.083 %) nebulizer solution 5 mg 2020-09 16:30: 00 09-08 15:33 :00 No 5mg 5 mg, Inhalation , ONCE, 1 dose, On Amelia 09/08/21 at 1030, [facility] predniSONE (DELTASONE) tablet 50 mg 2020-09 16:30: 00 09-08 15:41 :00 No 50mg 50 mg, Oral, ONCE, 1 dose, On Amelia 09/08/21 at 1030, [facility] ipratropium (ATROVENT) 0.02 % nebulizer solution 0.5 mg 2020-09 15:45: 00 09-08 14:47 :00 No .5mg 0.5 mg, Inhalation , ONCE, 1 dose, On Amelia 09/08/21 at 0945, [facility] albuterol (PROVENTIL) 2.5 mg /3 mL (0.083 %) nebulizer solution 5 mg 2020-09 15:45: 00 09-08 14:47 :00 No 5mg 5 mg, Inhalation , ONCE, 1 dose, On Amelia 09/08/21 at 0945, [facility] ondansetron (ZOFRAN-ODT ) disintegrat ing tablet 4 mg 2020-09 15:30: 00 09-08 14:17 :00 No 4mg 4 mg, Oral, ONCE, 1 dose, On Amelia 09/08/21 at 0930, Routine General acute hospital ondansetron (ZOFRAN ODT) 4 mg disintegrat ing tablet 2020-09 00:00: 00 Yes [id number] 4mg Take 1 tablet by mouth every 8 (eight) hours as needed for Nausea and Vomiting (N/V). General acute hospital Vital Signs Vital Name Observation Time Observation [...] Systolic blood pressure 2022-09-19 04:00:00 115 mm[Hg] [facility] Diastolic blood pressure 2022-09-19 04:00:00 60 mm[Hg] [facility] Heart rate 2022-09-19 04:00:00 66 /min [facility] Respiratory rate 2022-09-19 04:00:00 18 /min [facility] Oxygen saturation in Arterial blood by Pulse oximetry 2022-09-19 04:00:00 97 /min [facility] Body temperature 2022-09-19 03:06:00 37.39 Tiara [facility] Body height 2022-09-19 03:06:00 172.7 cm [facility] Body weight 2022-09-19 03:06:00 81.647 kg [facility] BMI 2022-09-19 03:06:00 27.37 kg/m2 [facility] Systolic blood pressure 2021-10-04 16:49:00 133 mm[Hg] [facility] Diastolic blood pressure 2021-10-04 16:49:00 96 mm[Hg] [facility] Heart rate 2021-10-04 16:49:00 112 /min [facility] Respiratory rate 2021-10-04 16:49:00 22 /min [facility] Body height 2021-10-04 16:49:00 165.1 cm [facility] Body weight 2021-10-04 16:49:00 79.379 kg [facility] BMI 2021-10-04 16:49:00 29.12 kg/m2 [facility] Oxygen saturation in Arterial blood by Pulse oximetry 2021-10-04 16:49:00 100 /min [facility] Systolic blood pressure 2021-09-08 16:36:51 122 mm[Hg] [facility] Diastolic blood pressure 2021-09-08 16:36:51 60 mm[Hg] [facility] Heart rate 2021-09-08 16:36:51 94 /min [facility] 2021-09-08 16:36:51 36.78 Tiara [facility] Respiratory rate 2021-09-08 16:36:51 18 /min [facility] Oxygen saturation in Arterial blood by Pulse oximetry 2021-09-08 16:36:51 99 /min [facility] Body height 2021-09-08 13:52:00 172.7 cm [facility] Body weight 2021-09-08 13:52:00 88.451 kg [facility] BMI 2021-09-08 13:52:00 29.65 kg/m2 [facility] BP Systolic 2021-07-27 12:41:[address] [facility] BP Diastolic 2021-07-27 12:41:[address] [facility] BMI (Body Mass Index) 2021-07-27 12:41:[address] [facility] Height 2021-07-27 12:41:17 [facility] Weight Measured 2021-07-27 12:41:[address] [facility] Body Temperature 2021-07-27 12:41:[address] [facility] Heart Rate 2021-07-27 12:41:17 [facility] Respiratory Rate 2021-07-27 12:41:[address] [facility] O2 % BldC Oximetry 2021-07-27 12:41:[address] [facility] Procedures Procedure Date / Time Performed Performing Clinician Source XR CHEST 1 VW 2022-09-19 03:47:07 Alfredo Cohen [facility] URINALYSIS 2022-09-19 03:33:00 Alfredo Cohen [facility] POCT TEST 2022-09-19 03:33:00 Blanka Cohen [facility] TROPONIN I 2022-09-19 03:25[facility] METABOLIC PANEL ([id number]) 2022-09-19 03:25:00 Alfredo Cohen [facility] CBC WITH DIFF 2022-09-19 03:25:00 Alfredo Cohen [facility] RAPID INFLUENZA A/B 2022-09-19 03:25:00 Blanka Cohen [facility] N-TERMINAL PRO-BNP 2022-09-19 03:25:00 Renetta Cohen [facility] COVID-19 (ID NOW RAPID TESTING) 2022-09-19 03:25:00 Alfredo Cohen [facility] EXTERNAL PROVIDER RECORDS 2021-10-19 06:01:00 Doctor Unassigned, [place] [facility] CT HEAD WO CONTRAST 2021-10-04 18:04:08 Nadine Escobedo [facility] XR CHEST 1 VW 2021-10-04 18:03:00 Nadine Escobedo [facility] URINE DRUG (IMMUNOASSAY) - COMPREHENSIVE DRUG SCREEN 2021-10-04 17:40:00 Nadine Escobedo [facility] CREATINE KINASE 2021-10-04 17:35:00 Nadine Escobedo [facility] LIPASE 2021-10-04 17:35:00 Nadine Escobedo [facility] TROPONIN I 2021-10-04 17:35:00 Nadine Escobedo [facility] COMP. METABOLIC PANEL ([id number]) 2021-10-04 17:35:00 Nadine Escobedo [facility] SALICYLATE 2021-10-04 17:35:00 Nadine Escobedo [facility] ETHANOL 2021-10-04 17:35:00 Nadine Escobedo [facility] CBC WITH DIFF 2021-10-04 17:35:00 Nadine Escobedo [facility] URINALYSIS 2021-10-04 17:35:00 Nadine Escobedo [facility] COVID-19 (ID NOW RAPID TESTING) 2021-10-04 17:35:00 Nadine Escobedo [facility] POCT TEST 2021-10-04 17:34:00 Nadine Escobedo [facility] NOTICE OF PRIVACY PRACTICES 2021-09-08 13:48:15 Doctor Unassigned, [place] [facility] CONSENT/REFUSAL FOR DIAGNOSIS AND TREATMENT 2021-09-08 13:48:03 Doctor Unassigned, [place] [facility] Encounters Start Date/Time End Date/Time Encounter Type Admission Type Attending [facility] Care Department Encounter ID Source 2023-12-27 11:42:00 2023-12-27 12:56:00 Emergency [facility] [id number] [facility]3] 2023-12-10 10:30:00 2023-12-10 11:24:00 Emergency E [facility] [id number] [facility]3] 2022-09-18 21:01:00 2022-09-18 23:53:00 Emergency X ALFREDO COHEN [facility] ERT [id number] General acute hospital 2022-09-18 21:01:00 2022-09-18 23:53:00 Emergency Alfredo Cohen [facility] .[id number] General acute hospital 2021-10-19 00:00:00 2021-10-19 00:00:00 Orders Only Doctor Unassigned, [place] [facility] [id number] General acute hospital 2021-10-04 10:52:00 2021-10-04 13:41:00 Emergency X NADINE ESCOBEDO [facility] ERT [id number] General acute hospital 2021-10-04 10:52:00 2021-10-04 13:41:00 Emergency Nadine Escobedo [facility] [id number] General acute hospital 2021-09-08 07:53:00 2021-09-08 10:38:00 Emergency KATHI CYR [facility] ERT [id number] General acute hospital 2021-09-08 07:53:00 2021-09-08 10:38:00 Emergency Kathi Rodríguez [facility] [id number] General acute hospital 2019-10-14 13:42:00 2019-10-14 16:23:00 Departed Emergency [id number] 1.2 [facility] [id number] [address] [place] [address]) Results Test Description Test Time Test Comments Results Result Co mments Source [facility] [id number] 04:00:28* Test Item Value Reference Range Interpretation Comme nts NT-proBNP (test code = 6312914809) 31 pg/mL See_Comment [Automated message] The system which generated this result transmitted reference range: <=125. The reference range was not used to interpret this result as normal/abnormal. HEMANT (test code = HEMANT) Biotin has been reported to cause a negative bias, interpret results relative to patient's use of biotin. Lab Interpretation (test code = 05494-3) Normal [facility] ([id number])2022-09-19 03:52:25* Test Item Value Reference Range Interpretation Comme nts NA (test code = 2868875082) 138 mmol/L 135-145 K (test code = 7832760051) 4.0 mmol/L 3.5-5.0 CL (test code = 2350103138) 105 mmol/L 98-108 CO2 TOTAL (test code = 0562598740) 24 mmol/L 23-31 AGAP (test code = 9500569250) 2-16 BUN (test code = 7299275313) 18 mg/dL 7-23 GLUCOSE (test code = 5400629609) 127 mg/dL 70-110 H CREATININE (test code = 7948720611) 0.81 mg/dL 0.50-1.04 TOTAL BILI (test code = 2877529111) 0.3 mg/dL 0.1-1.1 CALCIUM (test code = 8616351509) 8.8 mg/dL 8.6-10.6 T PROTEIN (test code = 0462997261) 7.1 g/dL 6.3-8.2 ALBUMIN (test code = 4413788936) 4.4 g/dL 3.5-5.0 ALK PHOS (test code = 9077355894) 52 U/L 34-122 ALTv (test code = 1742-6) 25 U/L 5-35 AST(SGOT) (test code = 0465209045) 27 U/L 13-40 eGFR (test code = 3702924257) mL/min/1.73m2 HEMANT (test code = HEMANT) Association [...] imaging tests). Lab Interpretation (test code = 81253-4) Abnormal [facility] WITH [id number] 03:38:46* Test Item Value Reference Range Interpretation Comme nts WBC (test code = 6690-2) See_Comment [Automated [email or web address]] The system which generated this result transmitted reference range: 4.30 - 11.10 10*3/?L. The reference range was not used to interpret this result as normal/abnormal. RBC (test code = 789-8) See_Comment [Automated [employer]] The system which generated this result transmitted [...] 33.8 g/dL 31.6-35.1 RDW-SD (test code = 83554-4) 37.8 fL 39.0-49.9 L RDW-CV (test code = 788-0) 12.3 % 12.0-15.5 PLT (test code = 777-3) See_Comment L [Automated [employer]] The system which generated this result transmitted reference range: 166 - 358 10*3/?L. The reference range was not used to interpret this result as normal/abnormal. MPV (test code = 78244-6) 12.8 fL 9.5-12.9 NRBC/100 WBC (test code = 9586384874) See_Comment [Automated me ssage] The system which generated this result transmitted reference range: 0.0 - 10.0 /100 WBCs. The reference range was not used to interpret this result as normal/abnormal. NRBC x10^3 (test code = 1971076482) See_Comment [Automated messa ge] The system which generated this result transmitted reference range: 10*3/?L. The reference range was not used to interpret this result as normal/abnormal. GRAN MAT (NEUT) % (test code = 770-8) 69.0 % IMM GRAN % (test code = 2494875422) 0.30 % LYMPH % (test code = 736-9) 25.3 % MONO % (test code = 5905-5) 4.6 % EOS % (test code = 713-8) 0.6 % BASO % (test code = 706-2) 0.2 % GRAN MAT x10^3(ANC) (test code = 8873192586) 7.47 10*3/uL 1.88-7.09 H IMM GRAN x10^3 (test code = 4678030046) 0.03 10*3/uL 0.00-0.06 LYMPH x10^3 (test code = 731-0) 2.74 10*3/uL 1.32-3.29 MONO x10^3 (test code = 742-7) 0.50 10*3/uL 0.33-0.92 EOS x10^3 (test code = 711-2) 0.07 10*3/uL 0.03-0.39 BASO x10^3 (test code = 704-7) 0.01-0.07 Lab Interpretation (test code = 71646-2) Abnormal [facility] [id number] 03:33:00* Test Item Value Reference Range Interpretation Comme nts POCT PREG (test code = 1605) negative Lab Interpretation (test cod e = 55705-5) Normal [facility] [id number] 18:58:19* Test Item Value Reference Range Interpretation Comments TROPONIN I (test code = 9078154305) 0.004 ng/mL See_Comment [Automated message] The system [...] of biotin. Lab Interpretation (test code = 47868-7) Normal [facility]2022-[facility] 18:52:56* Test Item Value Reference Range Interpretation Comme nts ALCOHOL (test code = 5615192245) <10 mg/dL HEMANT (test code = HEMANT) <10 [id number] Toxic>100 Depression of MODERN AND CONTEMPORARY ART CURATOR>400 Fatalities Reported [facility]2022-[facility]-11 18:51:50* Test Item Value Reference Range Interpretation Comme nts SALICYLATE (test code = 7404804793) <10 mg/L HEMANT (test code = HEMANT) Therapeutic Range: ? Analgesic and Antipyretic Use ? 20-100 mg/L ? ? Anti-Inflammatory Use ? 100-250 mg/L Toxic Range: ? Greater than 300 mg/L [facility]ET[facility]HEN2022-01-11 18:51:35* Test Item Value Reference Range Interpretation Comme nts ACETAMINOP (test code = 6959750498) <10.0 10.0-30.0 L HEMANT (test code = HEMANT) Toxic: Greater andrés n 200 ug/mL @ 4 hour post ingestion or greater than 50 ug/mL @ 12 hour post ingestion Lab Interpretation (test code = 28069-1) Abnormal [facility] MET[facility]OLIC PANEL (12836)2021-10-04 18:43:08* Test Item Value Reference Range Interpretation Comme nts NA (test code = 2051236065) 138 mmol/L 135-145 K (test code = 1678798996) 4.5 mmol/L 3.5-5.0 CL (test code = 2268182010) 106 mmol/L 98-108 CO2 TOTAL (test code = 5758186282) 25 mmol/L 23-31 AGAP (test code = 8258325209) 2-16 BUN (test code = 2249973040) 14 mg/dL 7-23 GLUCOSE (test code = 7334505769) 110 mg/dL 70-110 CREATININE (test code = 7423116287) 0.81 mg/dL 0.50-1.04 TOTAL BILI (test code = 6026934970) 0.7 mg/dL 0.1-1.1 CALCIUM (test code = 4698226153) 9.4 mg/dL 8.6-10.6 T PROTEIN (test code = 7023938097) 8.0 g/dL 6.3-8.2 ALBUMIN (test code = 0240073267) 4.9 g/dL 3.5-5.0 ALK PHOS (test code = 8332826744) 55 U/L 34-122 ALTv (test code = 1742-6) 19 U/L 5-35 AST(SGOT) (test code = 0533038559) 32 U/L 13-40 eGFR (test code = 1855656725) mL/min/1.73m2 HEMANT (test code = HEMANT) Association [...] or urine or abnormalities in imaging tests). [facility]20[facility] 18:42:48* Test Item Value Reference Range Interpretation Comme nts LIPASE (test code = 5434704679) 79 U/L 0-220 Lab Interpretation (test cod e = 00926-1) Normal [facility] [id number] 18:42:28* Test Item Value Reference Range Interpretation Comme nts CK (test code = 0285733935) 60 U/L 33-194 Lab Interpretation (test cod e = 43476-5) Normal [facility] WITH [id number] 18:29:45* Test Item Value Reference Range Interpretation Comme nts WBC (test code = 6690-2) See_Comment [Automated [email or web address]] The system which generated this result transmitted reference range: 4.30 - 11.10 10*3/?L. The reference range was not used to interpret this result as normal/abnormal. RBC (test code = 789-8) See_Comment [Automated [email or web address]] The system which generated this result transmitted [...] 33.5 g/dL 31.6-35.1 RDW-SD (test code = 02110-9) 39.6 fL 39.0-49.9 RDW-CV (test code = 788-0) 12.8 % 12.0-15.5 PLT (test code = 777-3) See_Comment [Automated [employer]] The system which generated this result transmitted reference range: 166 - 358 10*3/?L. The reference range was not used to interpret this result as normal/abnormal. MPV (test code = 20737-7) 13.7 fL 9.5-12.9 H IPF % (test code = 3149050003) 13.2 % 1.3-7.7 H Platelet count measured by fluorescence method. NRBC/100 WBC (test code = 8842819208) See_Comment [Automated MYR ssage] The system which generated this result transmitted reference range: 0.0 - 10.0 /100 WBCs. The reference range was not used to interpret this result as normal/abnormal. NRBC x10^3 (test code = 3997879248) <0.01 See_Comment [Automated [employer]] The system which generated this result transmitted reference range: 10*3/?L. The reference range was not used to interpret this result as normal/abnormal. GRAN MAT (NEUT) % (test code = 770-8) 79.5 % IMM GRAN % (test code = 6995900584) 0.40 % LYMPH % (test code = 736-9) 14.6 % MONO % (test code = 5905-5) 4.8 % EOS % (test code = 713-8) 0.4 % BASO % (test code = 706-2) 0.3 % GRAN MAT x10^3(ANC) (test code = 1105409629) 7.17 10*3/uL 1.88-7.09 H IMM GRAN x10^3 (test code = 1934303787) 0.04 10*3/uL 0.00-0.06 LYMPH x10^3 (test code = 731-0) 1.32 10*3/uL 1.32-3.29 MONO x10^3 (test code = 742-7) 0.43 10*3/uL 0.33-0.92 EOS x10^3 (test code = 711-2) 0.04 10*3/uL 0.03-0.39 BASO x10^3 (test code = 704-7) 0.03 10*3/uL 0.01-0.07 Lab Interpretation (test code = 89420-4) Abnormal [facility] [id number] 17:34:00* Test Item Value Reference Range Interpretation Comme nts POCT PREG (test code = 1605) Negative On board controls acceptable with C Line (test code = 3574) Present POCT PREG LOT # (test code = 3575) HCG [id number] POCT PREG TEST DATE ( test code = 3576) 11/21/2022 Lab Interpretation (test cod e = 39364-7) Normal [facility] WestUrinalysis2019-12-05 12:04:00* Test Item Value Reference Range Interpretation [...] (test code = PREGUSG) 1.025 1.002-1.036 N [id number] 12:03:00* Test Item Value Reference Range Interpretation [...]
[2024-08-18] MEDS ORDERED: ALBUTEROL 2.5 MG/3 ML NEB SOL ONE (07:06)
[2024-08-18] MEDS ORDERED: IPRATROPIUM BROM 0.5MG/2.5ML ONE (07:06)
[2024-08-18] MEDS ORDERED: METHYLPREDNISOLONE 125 MG INJ ONE (07:06)
[2024-08-18] MEDS ORDERED: dexAMETHasone 10 MG/ML VIAL ONE (07:16)
[2024-08-18] MEDS ORDERED: ONDANSETRON 4 MG/2 ML VIAL ONE (07:16)
[2024-08-18] MEDS ORDERED: CEFTRIAXONE 1000 MG/VIAL ONE (07:26)
[2024-08-18] MEDS ORDERED: Magnesium Sulfate 2gm IVPB 2 G/50 ML BAG IV ONE (07:27)
[2024-08-18] MEDS ORDERED: predniSONE 20 MG TAB ONE (07:27)
[2024-08-18] MEDS ORDERED: NA CHLORIDE 0.9% 1,000 ML ONE (07:27)
[2024-08-18 07:33] LABS: Absolute Eosinophils 0.1 K/uL (0-0.5); Absolute Lymphocytes (CBC) 1.2 K/uL (0.7-4.9); Absolute Monocytes 0.6 K/uL (0.1-1.3); Absolute Neutrophil 3.2 K/uL (1.8-8.0); Basophils % 0.6 % (0-1.3); Eosinophils % 1.4 % (0-4.4); Hematocrit 41.9 % (36.0-45.0); Lymphocytes % 22.9 % (15.3-44.8); MCHC 33.5 g/dL (32.0-36.0); MCV 86.6 fL (80-100); MPV 10.8 fL (7.6-11.3); Monocytes % 11.9 % (3.3-12.3); Neutrophils % 63.2 % (41.7-73.7); Nucleated Red Blood Cells % 0.1 % (0-0); Platelets 177 thou/uL (152-406); RBC Red Blood Cell Count 4.83 M/uL (3.86-4.86); Red Cell Distribution Width 13.1 % (12.1-15.2)
[2024-08-18] MEDS ORDERED: LEVALBUTEROL 1.25 MG/3 ML NEB ONE (08:01)
--- NOTE | 2024-08-18 08:01 | RAD REPORT ---
Procedure: Chest Single View HISTORY: Shortness of breath COMPARISON: February 2024 FINDINGS: The lungs appear clear of acute infiltrate. No significant pleural effusion noted. The heart is normal size. IMPRESSION: No acute abnormality is displayed.
[2024-08-18 08:07] LABS: SARS-CoV-2 Antigen CONTROL BLUE LINE VIS/BG OK; SARS-CoV-2 Antigen Rapid Res Negative (Negative)
--- NOTE | 2024-08-18 08:59 | ER ---
Nurse's Notes [facility] Name: Kimber Layton Age: 23 yrs Sex: Female : 2000 Arrival Date: 08/18/2024 Time: 06:56 Bed 13 Private MD: Diagnosis: Dyspnea;Moderate persistent asthma with (acute) exacerbation;Acute upper respiratory infection, unspecified Presentation: 08/18 07:04 Coronavirus screen: cough unrelated to allergies. Ebola Screen: Patient denies travel aa5 to an Ebola-affected area in the 21 days before illness onset. Initial Sepsis Screen: Does the patient meet any 2 criteria? RR > 20 per min. HR > 90 bpm. Does the patient have a suspected source of infection? No. Patient's initial sepsis screen is negative. Risk Assessment: Do you want to hurt yourself or someone else? Patient reports no desire to harm self or others. Onset of symptoms was August 16, 2024. 07:04 Acuity: REYNA 2 aa5 07:04 Method Of Arrival: Ambulatory aa5 07:04 Chief complaint: Patient states: COUGH AND SOB SINCE SUNDAY, REPORTS HX OF ASTHMA. aa5 MODERATE SOB NOTED DURING TRIAGE. Historical: - Allergies: 07:04 Amoxicillin; aa5 07:04 Motrin; aa5 07:04 PENICILLINS; aa5 - PMHx: 07:04 Asthma; GERD; Vertigo (GERD); aa5 - PSHx: 07:04 Cholecystectomy; left knee; aa5 - Immunization history:: Adult Immunizations unknown. - Infectious Disease History:: Denies. - Family history:: not pertinent. - Social history:: Smoking status: Patient denies any tobacco usage or history of. Screenin:10 [facility] ED Fall Risk Assessment (Adult) History of falling in the last 3 months, aa5 including since admission No falls in past 3 months (0 pts) Confusion or Disorientation No (0 pts) Intoxicated or Sedated No (0 pts) Impaired Gait No (0 pts) Mobility Assist Device Used No (0 pt) Altered Elimination No (0 pt) Score/Fall Risk Level 0 - 2 = Low Risk Oriented to surroundings, Maintained a safe environment, Educated pt \T\ family on fall prevention, incl call for assistance when getting out of bed. Abuse screen: Denies threats or abuse. Nutritional screening: No deficits noted. Tuberculosis screening: No symptoms or risk factors identified. Assessment: 07:04 General: Appears uncomfortable, Behavior is calm, cooperative. Pain: Denies pain. aa5 Neuro: Level of Consciousness is awake, alert, obeys commands, Oriented to person, place, time, situation. Cardiovascular: Heart tones S1 S2 present Rhythm is regular. Respiratory: Reports shortness of breath at rest on exertion cough that is dry, hacking, persistent since last night Airway is patent Respiratory effort is even, labored, Respiratory pattern is tachypnea Breath sounds with wheezes bilaterally. the patient has moderate shortness of breath. GI: Abdomen is round non-distended, Bowel sounds present X 4 quads. Abd is soft and non tender X 4 quads. : No signs and/or symptoms were reported regarding the genitourinary system. EENT: No signs and/or symptoms were reported regarding the EENT system. Derm: Skin is pink, warm \T\ dry. Musculoskeletal: Range of motion: intact in all extremities. 07:15 Reassessment: Pt coughing and dry heaving, pt c/o nausea, MD was notified. . aa5 07:40 Reassessment: Patient is alert, oriented x 3, equal unlabored respirations, skin aa5 warm/dry/pink. Patient states feeling better. SOB has improved. . 08:02 Reassessment: Patient is alert, oriented x 3, equal unlabored respirations, skin aa5 warm/dry/pink. General: Appears more comfortable, resting in bed. . 08:28 Reassessment: Patient is alert, oriented x 3, equal unlabored respirations, skin aa5 warm/dry/pink. Vital Signs: 07:04 BP 115 / 80; Pulse 105; Resp 32 S; Temp 98.2(O); Pulse Ox 99% on R/A; aa5 07:55 BP 126 / 77; Pulse 98; Resp 24 S; Pulse Ox 98% on R/A; aa5 08:28 BP 116 / 66; Pulse 107; Resp 20 S; Pulse Ox 99% on R/A; aa5 ED Course: 06:59 Patient arrived in ED. gm2 07:00 Rosalia Mora, RN is Primary Nurse. aa5 07:04 Arm band placed on. aa5 07:04 Patient has correct armband on for positive identification. Placed in gown. Bed in low aa5 position. Call light in reach. Side rails up X2. Pulse ox on. NIBP on. 07:05 Charlie Sadler MD is Attending Physician. radhika 07:09 sent to lab. Inserted saline lock: 20 gauge in right antecubital area, using aseptic aa5 technique. Blood collected. Flushed with 10 mL NS. 07:48 Triage completed. aa5 07:52 XRAY Chest (1 view) In Process Unspecified. EDMS 07:54 No provider procedures requiring assistance completed. aa5 08:59 Leroy Sanchez MD is Referral Physician. radhika 09:22 IV discontinued, intact, bleeding controlled, No redness/swelling at site. Pressure kc6 dressing applied. Administered Medications: 07:10 Drug: DuoNeb Nebulize (3:1) (2.5 mg - 0.5 mg) 3 ml Nebulizer once Route: Nebulizer; aa5 07:40 Follow up: Response: No adverse reaction; Marked relief of symptoms aa5 07:10 Drug: MethylPrednisoLONE IVP 125 mg IVP once Route: IVP; Site: right antecubital; aa5 07:20 Follow up: Response: No adverse reaction aa5 07:18 Drug: Ondansetron IVP 4 mg IVP once; over 2 minutes Route: IVP; Site: right antecubital;aa5 07:25 Follow up: Response: No adverse reaction; Nausea is decreased aa5 07:20 CANCELLED (Duplicate Order): dexamethasone1 mg PO once aa5 07:20 Drug: Dexamethasone IM 1 mg IM once; DO NOT GIVE IM. PLACE IN [facility] [place]. {Note: PLACED IN aa5 [facility] [place] PER MD.} Route: IM; Site: Other; 07:40 Follow up: Response: No adverse reaction; Marked relief of symptoms aa5 07:40 Drug: NS 0.9% IV 1000 ml IV at 1000 ml once; to be given as a bolus over 60 minutes aa5 Route: IV; Rate: 1000 ml; Site: right antecubital; 08:40 Follow up: IV Status: Completed infusion; IV Intake: 1000ml aa5 07:40 Drug: predniSONE PO 60 mg PO once Route: PO; aa5 08:40 Follow up: Response: No adverse reaction aa5 07:40 Drug: Magnesium Sulfate IVPB 2 grams IVPB once over 1 hrs Route: IVPB; Infused Over: 1 aa5 hrs; Site: right antecubital; 08:40 Follow up: IV Status: Completed infusion aa5 07:40 Drug: Rocephin - Rocephin (cefTRIAXone) IVPB 1 grams IVPB once over 30 mins; (mix in 50 aa5 mL NS) Route: IVPB; Infused Over: 30 mins; Site: right antecubital; 08:10 Follow up: Response: No adverse reaction; IV Status: Completed infusion aa5 08:02 Drug: Levalbuterol Inhalation 1.25 mg Inhalation once Route: Inhalation; aa5 Medication: 07:52 VIS not applicable for this client. aa5 Intake: 08:40 IV: 1000ml; Total: 1000ml. aa5 Outcome: 08:59 Discharge ordered by . radhika 09:22 Discharged to home ambulatory, [place] 09:22 Condition: good 09:22 Discharge instructions given to patient, Instructed on discharge instructions, follow up and referral plans. medication usage, Demonstrated understanding of instructions, follow-up care, medications, Prescriptions given X 5 09:22 Patient left the ED. ga Signatures: Dispatcher [employer] EDMS Charlie Sadler MD MD cha Calderon, Audri, RN RN Ana Laura Vance RN RN Leola Loaiza 2 Corrections: (The following items were deleted from the chart) 07:51 07:50 Response: No adverse reaction; Marked relief of symptoms aa5 aa5 07:56 07:55 Pulse 98bpm; Resp 24bpm; Spontaneous; Pulse Ox 98% RA; aa5 aa5
--- NOTE | 2024-08-18 08:59 | EDPHYS ---
Physician Documentation [facility] Name: Kimber Layton Age: 23 yrs Sex: Female : 2000 Arrival Date: 08/18/2024 Time: 06:56 Bed 13 Private MD: TOO Physician Charlie Sadler HPI: 08/18 07:16 This 23 yrs old Female presents to ER via Unassigned with complaints of radhika Breathing Difficulty, Asthma Exacerbation, Cough, Congestion. 07:16 The patient has shortness of breath at rest, with light activity. Onset: The radhika symptoms/episode began/occurred 1 day(s) ago. Duration: The symptoms are continuous, and are steadily getting worse. The patient's shortness of breath has no apparent modifying factors. Associated signs and symptoms: Pertinent positives: non-productive cough. The patient has experienced similar episodes in the past, multiple times. Historical: - Allergies: 07:04 Amoxicillin; aa5 07:04 Motrin; aa5 07:04 PENICILLINS; aa5 - PMHx: 07:04 Asthma; GERD; Vertigo (GERD); aa5 - PSHx: 07:04 Cholecystectomy; left knee; aa5 - Immunization history:: Adult Immunizations unknown. - Infectious Disease History:: Denies. - Family history:: not pertinent. - Social history:: Smoking status: Patient denies any tobacco usage or history of. ROS: 07:16 Constitutional: Negative for fever, chills, and weight loss, Eyes: Negative for injury, rahdika pain, redness, and discharge, ENT: Negative for injury, pain, and discharge, Neck: Negative for injury, pain, and swelling, Cardiovascular: Negative for chest pain, palpitations, and edema, Abdomen/GI: Negative for abdominal pain, nausea, vomiting, diarrhea, and constipation, Back: Negative for injury and pain, : Negative for injury, bleeding, discharge, and swelling, MS/Extremity: Negative for injury and deformity, Skin: Negative for injury, rash, and discoloration, Neuro: Negative for headache, weakness, numbness, tingling, and seizure, Psych: Negative for depression, anxiety, suicide ideation, homicidal ideation, and hallucinations, Allergy/Immunology: Negative for hives, rash, and allergies, Endocrine: Negative for neck swelling, polydipsia, polyuria, polyphagia, and marked weight changes, Hematologic/Lymphatic: Negative for swollen nodes, abnormal bleeding, and unusual bruising, 07:16 Respiratory: Positive for cough, shortness of breath, wheezing, expiratory, Exam: 07:16 Constitutional: This is a well developed, well nourished patient who is awake, alert, radhika and in no acute distress. Head/Face: Normocephalic, atraumatic. Eyes: Pupils equal round and reactive to light, extra-ocular motions intact. Lids and lashes normal. Conjunctiva and sclera are non-icteric and not injected. Cornea within normal limits. Periorbital areas with no swelling, redness, or edema. ENT: Nares patent. No nasal discharge, no septal abnormalities noted. Tympanic membranes are normal and external auditory canals are clear. Oropharynx with no redness, swelling, or masses, exudates, or evidence of obstruction, uvula midline. Mucous membranes moist. Neck: Trachea midline, no thyromegaly or masses palpated, and no cervical lymphadenopathy. Supple, full range of motion without nuchal rigidity, or vertebral point tenderness. No Meningismus. Chest/axilla: Normal chest wall appearance and motion. Nontender with no deformity. No lesions are appreciated. Abdomen/GI: Soft, non-tender, with normal bowel sounds. No distension or tympany. No guarding or rebound. No evidence of tenderness throughout. Back: No spinal tenderness. No costovertebral tenderness. Full range of motion. Pelvic Exam: Normal external genitalia. Speculum exam with closed cervical os, no discharge or bleeding noted. Bimanual exam with normal adnexa, no adnexal or cervical motion tenderness. Normal uterus. Female : Normal external genitalia. Skin: Warm, dry with normal turgor. Normal color with no rashes, no lesions, and no evidence of cellulitis. MS/ Extremity: Pulses equal, no cyanosis. Neurovascular intact. Full, normal range of motion. Neuro: Awake and alert, GCS 15, oriented to person, place, time, and situation. Cranial nerves II-XII grossly intact. Motor strength 5/5 in all extremities. Sensory grossly intact. Cerebellar exam normal. Normal gait. Psych: Awake, alert, with orientation to person, place and time. Behavior, mood, and affect are within normal limits. 07:16 Cardiovascular: Rate: tachycardic, actual rate is 105 bpm, Rhythm: regular, Pulses: no pulse deficits are appreciated, Heart sounds: normal, Edema: is not appreciated, JVD: is not appreciated, Vital Signs: 07:04 BP 115 / 80; Pulse 105; Resp 32 S; Temp 98.2(O); Pulse Ox 99% on R/A; aa5 07:55 BP 126 / 77; Pulse 98; Resp 24 S; Pulse Ox 98% on R/A; aa5 08:28 BP 116 / 66; Pulse 107; Resp 20 S; Pulse Ox 99% on R/A; aa5 MDM: 07:05 Medical Screening Exam initiated radhika 07:19 Differential diagnosis: Anemia Anxiety Reaction asthma, Bronchitis CHF exacerbation, radhika pneumonia, Psychogenic reactive airway disease, Sepsis Unstable Angina. Antibiotic administration: The patient is discharged and will get outpatient antibiotics, Zithromax. Immunization status:. Data reviewed: vital signs, nurses notes, lab test result(s), radiologic studies. Consideration of Admission/Observation Escalation of care including admission/observation considered. I considered the following discharge prescriptions or medication management in the emergency department Medications were administered in the Emergency Department. See MAR. Independent interpretation of the following test(s) in the Emergency Department X-Ray: My interpretation is cxr . Test considered but Not performed: CT: no ct chest. Care significantly affected by the following chronic conditions: Obesity, vertigo , asthma, gerd. Counseling: I had a detailed discussion with the patient and/or guardian regarding the historical points, exam findings, and any diagnostic results supporting the discharge/admit diagnosis, lab results, radiology results, the need for outpatient follow up, for definitive care, a family practitioner, a behavioral health aide. 08/18 07:07 Order name: Basic Metabolic Panel; Complete Time: 08:08/18 07:07 Order name: CBC with Diff; Complete Time: 08:08/18 07:15 Order name: Flu radhika 08/18 07:15 Order name: SARS RAPID [facility] 08/18 07:07 Order name: XRAY Chest (1 view); Complete Time: 08:08/18 07:07 Order name: EKG; Complete Time: 07:08 08/18 07:07 Order name: IV Saline Lock; Complete Time: 07:21 08/18 07:07 Order name: Labs collected and sent; Complete Time: 07:08/18 07:07 Order name: O2 Per Protocol; Complete Time: aa08/18 07:07 Order name: O2 Sat Monitoring; Complete Time: : aa5 Administered Medications: 07:10 Drug: DuoNeb Nebulize (3:1) (2.5 mg - 0.5 mg) 3 ml Nebulizer once Route: Nebulizer; aa5 07:40 Follow up: Response: No adverse reaction; Marked relief of symptoms aa5 07:10 Drug: MethylPrednisoLONE IVP 125 mg IVP once Route: IVP; Site: right antecubital; aa5 07:20 Follow up: Response: No adverse reaction aa5 07:18 Drug: Ondansetron IVP 4 mg IVP once; over 2 minutes Route: IVP; Site: right antecubital;aa5 07:25 Follow up: Response: No adverse reaction; Nausea is decreased aa5 07:20 CANCELLED (Duplicate Order): dexamethasone1 mg PO once aa5 07:20 Drug: Dexamethasone IM 1 mg IM once; DO NOT GIVE IM. PLACE [place]. [facility] Route: IM; Site: Other; 07:40 Follow up: Response: No adverse reaction; Marked relief of symptoms aa5 07:40 Drug: NS 0.9% IV 1000 ml IV at 1000 ml once; to be given as a bolus over 60 minutes aa5 Route: IV; Rate: 1000 ml; Site: right antecubital; 08:40 Follow up: IV Status: Completed infusion; IV Intake: 1000ml aa5 07:40 Drug: predniSONE PO 60 mg PO once Route: PO; aa5 08:40 Follow up: Response: No adverse reaction aa5 07:40 Drug: Magnesium Sulfate IVPB 2 grams IVPB once over 1 hrs Route: IVPB; Infused Over: 1 aa5 hrs; Site: right antecubital; 08:40 Follow up: IV Status: Completed infusion aa5 07:40 Drug: Rocephin - Rocephin (cefTRIAXone) IVPB 1 grams IVPB once over 30 mins; (mix in 50 aa5 mL NS) Route: IVPB; Infused Over: 30 mins; Site: right antecubital; 08:10 Follow up: Response: No adverse reaction; IV Status: Completed infusion aa5 08:02 Drug: Levalbuterol Inhalation 1.25 mg Inhalation once Route: Inhalation; aa5 Disposition Summary: 08/18/24 08:59 Discharge Ordered Notes: Location: Home [facility] Problem: new radhika Symptoms: have improved radhika Condition: Stable radhika Diagnosis - Dyspnea radhika - Moderate persistent asthma with (acute) exacerbation radhika - Acute upper respiratory infection, unspecified radhika Followup: radhika - With: Private Physician - When: 2 - 3 days - Reason: Recheck today's complaints, Continuance of care, Re-evaluation by your physician Followup: radhika - With: Leroy Sanchez MD - When: 2 - 3 days - Reason: Recheck today's complaints, Re-evaluation by your physician Discharge Instructions: - Discharge Summary Sheet radhika - Asthma, Adult radhika - Upper Respiratory Infection, Adult radhika - Asthma Attack radhika - Cool Mist Vaporizer rahdika - Upper Respiratory Infection, Adult, [id number] radhika - How to Use a Nebulizer, Adult radhika - Cough, Adult radhika - Asthma Attack Prevention, Adult [facility] Forms: - Medication Reconciliation Form [facility] - Antibiotic Education radhika - Prescription Opioid Use radhika - Patient Portal Instructions [facility] - Leadership Thank You Letter radhika - Work release form [email or web address] Prescriptions: - albuterol sulfate 90 mcg/actuation Inhalation HFA Aerosol Inhaler - inhale 2 inhalation INHALATION route every 4 to 6 hours as needed for shortness radhika of breath or wheezing; 1 unit; Refills: 0, Product Selection Permitted - Tessalon Perles 100 mg Oral capsule - take 2 capsule ORAL route every 8 hours As needed; 30 capsule; Refills: 0, radhika Product Selection Permitted - Albuterol Sulfate 2.5 mg /3 mL (0.083 %) Inhalation Solution for Nebulization - inhale 1 unit NEBULIZATION route every 4-6 hours As needed; 45 unit; Refills: radhika 0, Product Selection Permitted - Zithromax Z-Medhat 250 mg Oral Tablet - take 1 tablet ORAL route as directed for 5 days Day 1 - take two (2) tablets radhika one time. Day 2, 3, 4 , 5 take one (1) tablet once daily.; 6 tablet; Refills: 0, Product Selection Permitted - Prednisone 20 mg Oral Tablet - take 2 tablets ORAL route once daily for 5 days; 10 tablet; Refills: 0, Product radhika Selection Permitted Signatures: Dispatcher [employer] Charlie Miranda MD MD cha Calderon, Audri, RN RN aa5 Corrections: (The following items were deleted from the chart) 07:15 07:15 Influenza Screen (A \T\ B)+BA.LAB.BRZ ordered. EDMS EDMS 07:15 07:15 SARS-COV-2 Antigen Rapid+I.LAB.BRZ ordered. EDMS EDMS 07:20 07:15 Dexamethasone PO 1 mg PO once ordered. radhika [email or web address]
[2024-08-18 12:28] VITALS: TEMP 98.2
[2024-08-18 12:39] VITALS: BP 116/66; O2SAT 99
== END 2024-08-18 09:22 | disposition home or self-care (01) ==
LOC: ER 06:56
DX: J45.41 Moderate persistent asthma with (acute) exacerbation (principal); J06.9 Acute upper respiratory infection, unspecified; R06.00 Dyspnea, unspecified; K21.9 Gastro-esophageal reflux disease without esophagitis; Z88.0 Allergy status to penicillin; Z88.5 Allergy status to narcotic agent; Z88.6 Allergy status to analgesic agent; Z11.52 Encounter for screening for COVID-19
CPT/HCPCS: 36415; 71045; 80048; 85025; 87804; 87811; 96365; 96368; 96372; 96375; 99285; J0696; J1100; J2405; J2919; J3475; J7030; J7512; J7613; J7614; J7644